=== PATIENT | male | born 1955 | race Caucasian/White ===

== ENCOUNTER 2017-11-12 21:35 | Day surgery (SDC) | payer MEDICARE, OTHER ==
[~2017-11-12] VITALS: Ht 188 cm; Wt 105.3 kg
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
--- OUTSIDE RECORDS SUMMARY | 2017-11-12 21:43 | XMS REPORT ---
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 Name Role Phone HAYLEY ARIAS Unavailable PROBLEMS Type Condition ICD9-CM Code JYM31-TA Code Onset Dates Condition Status SNOMED Code Problem Obsessive compulsive disorder F42 Active 575402036 Problem Panic disorder F41.0 Active 286959049 Problem BPH (benign prostatic hyperplasia) N40.0 Active 882018597 Problem Chronic hepatitis C without hepatic coma B18.2 Active 506975882 Problem Back pain at L4-L5 level M54.5 Active 907130090 Problem Constipation, unspecified constipation type K59.00 Active 37765865 Problem Chronic pain G89.29 Active 36199518 Problem Degenerative disc disease at L5-S1 level M51.36 Active 01856741 Problem Benign nodular prostatic hyperplasia, presence of lower urinary tract symptoms unspecified N40.0 Active 668995072 Problem Other obsessive-compulsive disorder F42.8 Active 356800888 Problem HTN (hypertension) I10 Active 50511545 Problem Depression F32.9 Active 03044593 Problem Apnea R06.81 Active 0185709 Problem Anxiety F41.9 Active 19205290 Problem ED (erectile dysfunction) N52.9 Active 359188371 Problem Chronic viral hepatitis C B18.2 Active 697685588 ALLERGIES No Information ENCOUNTERS Encounter Location Date Diagnosis [facility] [address] [id number] [address] Oct, [facility] [id number] [place] [address] 78505- 2574 Aug, Degenerative disc disease at L5-S1 level M51.36 [facility] [id number] [place] [address] 30060- 7668 Aug, [facility] [id number] [place] [address] 67075- 6861 Jul, HTN (hypertension) I10 ; Depression F32.9 ; Degenerative disc disease at L5-S1 level M51.36 ; Benign nodular prostatic hyperplasia, presence of lower urinary tract symptoms unspecified N40.0 ; High risk medication use Z79.899 ; Controlled substance agreement signed Z79.899 ; Anxiety F41.9 ; Chronic hepatitis C without hepatic coma B18.2 and Injury of left knee, initial encounter S89.92XA [facility] [address] [address]- [address] Jul, [place] [address] [address]- [address] June, Degenerative disc disease at L5-S1 level M51.36 [place] [id number] [place] [address] 32833- 1884 Mar, [place] [address] [address]66- 0890 Mar, Controlled substance agreement signed Z79.899 and Degenerative disc disease at L5-S1 level M51.36 [place] [address] 90164- 3568 Mar, Controlled substance agreement signed Z79.899 [place] [id number] [place] [address] 96591- 8613 Feb, [facility] [id number] [place] [address] 23216- 8085 Feb, Degenerative disc disease at L5-S1 level M51.36 [facility] [id number] [place] [address] 15511- 9712 Jan, HTN (hypertension) I10 ; Chronic pain G89.29 and Back pain at L4-L5 level M54.5 [place] [id number] [place] [address] 26269- 0844 Dec, Degenerative disc disease at L5-S1 level M51.36 [place] [address] [place] [address]- 5711 Dec, Degenerative disc disease at L5-S1 level M51.36 and Depression F32.9 [place] [address] 71970- 6858 Oct, [place] [address] 27511- 6638 Sep, Chronic viral hepatitis C B18.2 ; BPH (benign prostatic hyperplasia) N40.0 ; HTN (hypertension) I10 ; Panic disorder F41.0 ; Obsessive compulsive disorder F42 ; Constipation, unspecified constipation type K59.00 and Degenerative disc disease at L5-S1 level M51.36 [place] [address] 04292- 9180 Aug, Chronic pain G89.29 [place] [address] 17478- 2506 Aug, [place] [address] 74882- 2806 May, Chronic pain G89.29 and Anxiety F41.[address] [address]- 2069 Apr, Chronic pain G89.29 and Anxiety F41.9 [place] [address] 74381- 5391 Apr, Chronic pain G89.29 [place] [address] 35513- 9794 Mar, Anxiety F41.9 and Chronic pain G89.29 [place] [address] 61099- 6283 Feb, [place] [address] 30717- 5768 Feb, Depression F32.9 [place] [address] 92394- 1129 Feb, [place] [id number] [place] [address] 76181- 1132 Feb, Chronic viral hepatitis C B18.2 ; ED (erectile dysfunction) N52.9 ; HTN (hypertension) I10 ; Depression F32.9 ; Constipation, unspecified constipation type K59.00 ; Chronic pain G89.29 ; Benign nodular prostatic hyperplasia, presence of lower urinary tract symptoms unspecified N40.0 ; Anxiety F41.9 and Screening cholesterol level Z13.220 [place] [address] 82172- 6983 Feb, [place] [address] 93357- 1810 Feb, Chronic pain G89.29 [place] [address] 38666- 5290 Feb, Anxiety F41.9 ; Chronic pain G89.29 ; Obsessive compulsive disorder F42 and HTN (hypertension) I10 [place] [address] 28642- 4659 Dec, [place] [address] 86977- 6028 Dec, [place] [address] 89401- 6291 Dec, Anxiety F41.9 [place] [address] 27318- 8040 Nov, Chronic viral hepatitis C B18.2 ; Anxiety F41.9 ; HTN ( hypertension) I10 ; Panic disorder F41.0 ; BPH (benign prostatic hyperplasia) N40.0 ; ED (erectile dysfunction) N52.9 ; Obsessive compulsive disorder F42 ; Constipation, unspecified constipation type K59.00 and Chronic pain G89.29 [place] [address] 93593- 2762 Nov, [place] [address] [place] [address]- 8416 05 Nov, 2015 [facility] [id number] [place] [address] 61297- 8039 30 Oct, 2015 [facility] [address] 93501- 0665 Aug, [facility] [address] 58510- 9016 Jul, Chronic viral hepatitis C B18.2 ; BPH (benign prostatic hyperplasia) N40.0 ; ED (erectile dysfunction) N52.9 ; HTN (hypertension) I10 ; Panic disorder F41.0 ; Depression F32.9 ; Obsessive compulsive disorder F42 ; Apnea R06.81 ; Other chronic pain G89.29 and Dorsalgia, unspecified M54.9 [facility] [id number] [place] [address] 64480- 6200 Jul, Chronic pain G89.29 and Anxiety F41.9 [facility] [address] 58520- 2872 June, Chronic pain G89.29 [facility] [address] 78874- 9446 June, Panic disorder F41.0 and Chronic pain G89.29 [facility] [id number] [place] [address] 00300- 6252 14 May, 2015 [facility] [id number] [place] [address] 64385- 8311 14 May, 2015 [facility] [id number] [place] [address] 12899- 4093 12 May, 2015 [facility] [address] 13413 -2262 23 Apr, 2015 Sinusitis J32.9 [facility] [id number] [place] [address] 44923- 3994 18 Apr, 2015 [facility] [address] [place] [address]- 1695 Apr, [facility] [id number] [place] [address] 81028- 4744 Mar, [facility] [address] 91756- 1608 Mar, Depression F32.9 ; Panic disorder F41.0 and Obsessive compulsive disorder F42 [place] [address] 82689- 8783 Mar, [place] [address] 42674- 6056 Feb, [place] [address] 07996- 2977 Feb, Anxiety F41.9 ; ED (erectile dysfunction) N52.9 ; HTN ( hypertension) I10 ; Panic disorder F41.0 ; Depression F32.9 ; Obsessive compulsive disorder F42 ; BPH (benign prostatic hyperplasia) N40.0 ; Degenerative joint disease of low back M47.9 and Vitamin D deficiency E55.9 [place] [id number] [place] [address] 11377- 1181 Feb, [place] [id number] [place] [address] 96143- 1782 Dec, [place] [id number] [place] [address] 12380- 6980 Dec, [place] [id number] [place] [address] 38960- 4483 Dec, [place] [id number] [place] [address] 09963- 0291 Nov, Chronic viral hepatitis C B18.2 ; Anxiety F41.9 ; BPH ( benign prostatic hyperplasia) N40.0 ; ED (erectile dysfunction) N52.9 ; HTN ( hypertension) I10 ; Panic disorder F41.0 ; Depression F32.9 ; Obsessive compulsive disorder F42 ; Apnea R06.81 ; Chronic pain G89.29 and Vitamin D deficiency E55.9 [facility] [address], [place] [address]- 1541 Nov, [facility] [address] 0236 Nov, [facility] [address] [address]- 4195 Nov, [facility] [id number] [place] [address] 551562- 2245 Nov, [facility] [address] [address]- 6916 Oct, [facility] [address] [address]- 6486 Oct, [facility] [address] [address]- 4754 Oct, [facility] [address], [place] [address]- 4621 Sep, [facility] [address], [place] [address]- 8516 Sep, [facility] [address] [address]- 4650 Sep, [facility] [address], [place] [address]- 4845 Sep, [facility] [address], [place] [address]- 2464 Aug, Essential hypertension, benign 401.1 ; Obsessive-compulsive disorders 300.3 ; Anxiety state, unspecified 300.00 ; Depressive disorder, not elsewhere classified 311 ; Lumbago 724.2 ; Hepatitis C 070.70 and BPH (benign prostatic hyperplasia) 600.00 [facility] [address] 2143 Aug, [facility] [id number] [address]- 4578 Aug, [facility] [address] [facility] [id number] [address]- 7539 Jul, [facility] [place] [facility] [address] [address]- 0164 June, [facility] [place] [facility] [address] [id number], [place] [address]- 5344 May, Lumbago 724.2 ; Other chronic pain 338.29 and Dizziness 780.4 [facility] [place] [facility] [address] [facility] [id number], [place] [address]- 8352 May, [facility] [place] [facility] [id number] [place] [address] 41760- 4118 May, [facility] [place] [facility] [address] [address]- 3865 Apr, [facility] [place] [facility] [address], [place] [address]- 1202 Apr, [facility] [place] [facility] [id number], [place] [address]- 0839 Apr, [facility] [place] [facility] [address], [place] [address]- 7541 Apr, [facility] [place] [facility] [address] [address]- 5717 Apr, [facility] [place] [facility] [id number], [place] [address]- 3068 Apr, [facility] [place] [facility] [address] [facility] [id number] [address]- 7953 Mar, [facility] [place] [facility] [address] [facility] [id number], [place] [address]- 2421 Mar, [facility] [place] [facility] [id number], [place] [address]- 5375 Mar, [facility] [place] [facility] [address] [place] [address]- 1837 10 Mar, 2014 [facility] [place] [facility] [address] [id number] [place] [address]- 7490 10 Mar, 2014 [facility] [place] [facility] [address] [id number] [place] [address]- 7903 10 Mar, 2014 [facility] [place] [facility] [address] [id number] [place] [address]- 8751 10 Mar, 2014 [facility] [place] [facility] [address] [id number] [place] [address]- 9660 10 Mar, 2014 [facility] [place] [facility] [address] [facility] [id number] [place] [address]- 3269 Feb, [facility] [place] [facility] [address] [facility] [id number] [place] [address]- 1670 Feb, [facility] [place] [facility] [address] [facility] [id number] [place] [address]- 3660 Jan, [facility] [place] [facility] [address] [id number] [place] [address]- 2070 Jan, [facility] [place] [facility] [address] [facility] [id number] [place] [address]- 6974 02 Jan, 2014 [facility] [place] [facility] [address] [facility] [id number] [place] [address]- 2500 02 Jan, 2014 [facility] [place] [facility] [address] [facility] [id number] [place] [address]- 5859 Nov, [facility] [place] [facility] [address] [id number] [place] [address]- 8409 31 Nov, 2013 [facility] [place] [facility] [address] [facility] [id number] [place] 3278 16 Nov, 2013 [facility] [place] [facility] [address] [facility] [id number] [place] 3320 16 Nov, 2013 [facility] [place] [facility] [address] [facility] [id number] [place] [address]- 3259 14 Nov, 2013 [facility] [place] [facility] [address] [id number] [place] [address]- 4538 14 Nov, 2013 [facility] [place] [facility] [address] [id number] [place] [address]- 6285 Nov, [facility] [place] [facility] [address] [id number] [place] [address]- 1331 Nov, [facility] [place] [facility] [address] [id number] [place] [address]- 8284 Nov, [facility] [place] [facility] [address] [id number] [place] [address]- 9273 Nov, [facility] [place] [facility] [address] [id number] [place] [address]- 2303 Nov, [facility] [place] [facility] [address] [id number] [place] [address]- 1836 Nov, [facility] [place] [facility] [address] [id number] [place] [address]- 4434 12 Oct, 2013 [facility] [place] [facility] [address] [id number] [place] [address]- 2566 12 Oct, 2013 [facility] [place] [facility] [address] [id number] [place] [address]- 5261 12 Oct, 2013 [facility] [place] [facility] [address] [id number], [place] [address]- 2879 12 Oct, 2013 [facility] [place] [facility] [address] [id number], [place] [address]- 5080 11 Oct, 2013 [facility] [place] [facility] [address] [id number] [place] [address]- 0972 11 Oct, 2013 [facility] [place] [facility] [address] [id number] [place] [address]- 4774 10 Oct, 2013 [facility] [place] [facility] [address] [id number], [place] [address]- 6035 10 Oct, 2013 [facility] [place] [facility] [address] [id number], [place] [address]- 3942 10 Oct, 2013 [facility] [place] [facility] [address] [id number] [place] [address]- 5485 10 Oct, 2013 [facility] [place] [facility] [address] [id number] [place] [address]- 2664 03 Oct, 2013 [facility] [place] [facility] [address] [id number] [place] [address]- 0567 03 Oct, 2013 [facility] [place] [facility] [address] [id number] [place] [address]- 4414 02 Oct, 2013 [facility] [place] [facility] [address] [id number] [place] [address]- 2546 Oct, 2013 [facility] [place] [facility] [address] [id number] [place] [address]- 4488 Oct, 2013 [facility] [place] [facility] [address] [id number] [place] [address]- 2695 Oct, 2013 [facility] [place] [facility] [address] [id number] [place] [address]- 2347 Oct, 2013 [facility] [place] [facility] [address] [id number] [place] [address]- 0347 Oct, 2013 [facility] [place] [facility] [address] [id number] [place] [address]- 6432 Sep, [facility] [place] [facility] [address] [id number] [place] [address]- 8109 Sep, [facility] [place] [facility] [address] [id number], [place] [address]- 5696 Sep, [facility] [place] [facility] [address] [id number] [place] [address]- 4831 Sep, [facility] [place] [facility] [address] [id number] [place] [address]- 7391 Sep, [facility] [place] [facility] [address] [id number] [place] [address]- 8831 Sep, [facility] [place] [facility] [address] [id number] [place] [address]- 1255 Sep, [facility] [place] [facility] [address] [id number] [place] 8169 Sep, [facility] [place] [facility] [address] [id number] [place] [address]- 6062 Sep, [facility] [place] [facility] [address] [id number] [place] [address]- 5945 Sep, [facility] [place] [facility] [address] [id number] [place] [address]- 6601 Aug, [facility] [place] [facility] [address] [id number] [place] [address]- 8480 Aug, [facility] [place] [facility] [address] [id number] [place] [address]- 2657 Aug, [facility] [place] [facility] [address] [id number] [place] [address]- 3060 Aug, [facility] [place] [facility] [address] [id number] [facility] [place] [address]- 4813 Aug, [facility] [place] [facility] [address] [id number] [place] [address]- 4094 Aug, [facility] [place] [facility] [address] [id number] [place] [address]- 6503 Aug, [facility] [place] [facility] [address] [id number] [facility] [place] [address]- 8239 Aug, [facility] [place] [facility] [address] [id number] [place] [address]- 3126 Aug, [facility] [place] [facility] [address] [id number] [place] [address]- 8962 Aug, [facility] [place] [facility] [address] [id number] [place] [address]- 7819 Aug, [facility] [place] [facility] [address] [id number] [place] [address]- 4578 Aug, [facility] [place] [facility] [address] [id number] [place] [address]- 0445 Aug, [facility] [place] [facility] [address] [id number] [place] [address]- 8917 Jul, [facility] [place] [facility] [address] [id number] [place] [address]- 4929 Jul, [facility] [place] [facility] [address] [id number] [place] [address]- 4654 Jul, [facility] [place] [facility] [address] [id number] [place] [address]- 5181 Jul, [facility] [place] [facility] [address] [id number] [place] [address]- 1369 Jul, [facility] [place] [facility] [address] [id number] [place] [address]- 4309 Jul, [facility] [place] [facility] [address] [id number] [place] [address]- 3240 Jul, [facility] [place] [facility] [address] [id number] [place] [address]- 1731 Jul, [facility] [place] [facility] [address] [id number] [place] [address]- 8348 Jul, [facility] [place] [facility] [address] [id number], [place] [address]- 9510 Jul, [facility] [place] [facility] [address] [id number], [place] [address]- 1133 Jul, [facility] [place] [facility] [address] [id number] [place] [address]- 2900 June, [facility] [place] [facility] [address] [id number] [place] [address]- 2916 June, [facility] [place] [facility] [address] [id number] [place] [address]- 9350 June, [facility] [place] [facility] [address] [id number] [place] [address]- 8262 June, [facility] [place] [facility] [address] [id number] [place] [address]- 8863 June, [facility] [place] [facility] [address] [id number] [place] 4946 May, [facility] [place] [facility] [address] [id number] [place] [address]- 1516 May, [facility] [place] [facility] [address] [id number] [place] [address]- 0688 May, [facility] [place] [facility] [address] [id number] [place] [address]- 3423 May, [facility] [place] [facility] [address] [id number] [place] [address]- 4644 Apr, [facility] [place] [facility] [address] [id number] [place] [address]- 3849 Apr, [facility] [place] [facility] [address] [id number] [place] [address]- 9815 Apr, [facility] [place] [facility] [address] [id number] [place] [address]- 2097 Apr, [facility] [place] [facility] [address] [facility] [id number] [place] [address] Apr, [facility] [place] [facility] [address] [id number] [place] [address] Apr, [facility] [place] [facility] [address] [id number] [place] [address] Apr, [facility] [place] [facility] [address] [id number] [place] [address] Apr, [facility] [place] [facility] [address] [id number] [place] [address] Mar, [facility] [place] [facility] [address] [id number] [place] [address] Mar, [facility] [place] [facility] [address] [id number] [place] [address] Mar, [facility] [place] [facility] [address] [id number] [place] [address] Mar, [facility] [place] [facility] [address] [id number] [place] [address] Feb, [facility] [place] [facility] [address] [id number] [place] [address] Feb, [facility] [place] [facility] [address] [id number] [place] [address] Feb, [facility] [place] [facility] [address] [id number] [place] [address] Feb, [facility] [place] [facility] [address] [id number] [place] [address] Jan, [facility] [place] [facility] [address] [id number] [place] [address] Jan, [facility] [place] [facility] [address] [id number] [place] [address] Jan, [facility] [place] [facility] [address] [id number] [address] Jan, [facility] [place] [facility] [address] [id number] [address] Jan, [facility] [place] [facility] [address] [id number] [address] Dec, [facility] [place] [facility] [address] [id number] [place] [address] Dec, [facility] [place] [facility] [address] [id number][place] [address] Dec, [facility] [place] [facility] [address] [id number] [address] Dec, [facility] [place] [facility] [address] [id number], [place] [address] Dec, [facility] [place] [facility] [address] [id number] [place] [address] Dec, [facility] [place] [facility] [address] [id number] [place] [address] Dec, [facility] [place] [facility] [address] [facility] [id number] [place] [address] Dec, [facility] [place] [facility] [address] [id number] [place] [address] Nov, [facility] [place] [facility] [address] [id number] [place] [address] Nov, [facility] [place] [facility] [address] [id number] [place] [address] Nov, [facility] [place] [facility] [address] [facility] [id number], [place] [address] Nov, [facility] [place] [facility] [address] [id number] [place] [address] Nov, [facility] [place] [facility] [address] [facility] [id number] [place] [address] Nov, [facility] [place] [facility] [address] [facility] [id number] [place] [address] 30 Oct, 2012 [facility] [place] [facility] [address] [id number] [place] [address] 20 Oct, 2012 [facility] [place] [facility] [address] [id number], [place] [address] 12 Oct, 2012 [facility] [place] [facility] [address] [id number] [place] [address] 05 Oct, 2012 [facility] [place] [facility] [address] [facility] [id number] [place] [address] 14 Sep, 2012 [facility] [place] [facility] [address] [facility] [id number] [place] [address] Sep, [facility] [place] [facility] [id number], [place] [address] Sep, [facility] [id number], [place] [address] Aug, [facility] [id number], [place] [address] Aug, [facility] [id number], [place] [address] Jul, [facility] [id number], [place] [address] Jul, [facility] [id number], [place] [address] June, [facility] [id number], [place] [address] June, [facility] [id number], [place] [address] June, [facility] [address] [id number] [address] May, [facility] [id number] [place] [address] Mar, [facility] [id number] [address] Mar, [facility] [id number] [address] Mar, [facility] [id number], [place] [address] Mar, IMMUNIZATIONS No Known Immunizations SOCIAL HISTORY Never Assessed REASON FOR VISIT Controlled Med Refill PLAN OF CARE VITAL SIGNS MEDICATIONS Unknown Medications RESULTS No Results PROCEDURES No Known procedures [...]
--- OUTSIDE RECORDS SUMMARY | 2017-11-12 21:43 | XMS REPORT ---
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 Name Role Phone HAYLEY ARIAS Unavailable PROBLEMS Type Condition ICD9-CM Code YPS20-MM Code Onset Dates Condition Status SNOMED Code Problem Obsessive compulsive disorder F42 Active 288771786 Problem Panic disorder F41.0 Active 579296715 Problem BPH (benign prostatic hyperplasia) N40.0 Active 700171654 Problem Chronic hepatitis C without hepatic coma B18.2 Active 309890382 Problem Back pain at L4-L5 level M54.5 Active 788452569 Problem Constipation, unspecified constipation type K59.00 Active 37631219 Problem Chronic pain G89.29 Active 45087792 Problem Degenerative disc disease at L5-S1 level M51.36 Active 81758929 Problem Benign nodular prostatic hyperplasia, presence of lower urinary tract symptoms unspecified N40.0 Active 735879423 Problem Other obsessive-compulsive disorder F42.8 Active 902950900 Problem HTN (hypertension) I10 Active 63728686 Problem Depression F32.9 Active 57548084 Problem Apnea R06.81 Active 5925920 Problem Anxiety F41.9 Active 64526589 Problem ED (erectile dysfunction) N52.9 Active 183741011 Problem Chronic viral hepatitis C B18.2 Active 741847042 ALLERGIES Substance Reaction Event Type Date Status Codeine Sulfate itching Drug Allergy Jul, Active ENCOUNTERS Encounter Location Date Diagnosis [facility] [address] [facility] [id number] [address] Oct, [facility] [address] [id number] [address] Aug, Degenerative disc disease at L5-S1 level M51.36 [facility] [address] [id number] [address] Aug, [place] [id number] [place] [address] 93532- 9157 14 Jul, 2017 HTN (hypertension) I10 ; Depression F32.9 ; Degenerative disc disease at L5-S1 level M51.36 ; Benign nodular prostatic hyperplasia, presence of lower urinary tract symptoms unspecified N40.0 ; High risk medication use Z79.899 ; Controlled substance agreement signed Z79.899 ; Anxiety F41.9 ; Chronic hepatitis C without hepatic coma B18.2 and Injury of left knee, initial encounter S89.92XA [place] [address] [address]- [address] Jul, [place] [address] 02993- 6888 June, Degenerative disc disease at L5-S1 level M51.36 [place] [id number] [place] [address] 35283- 8795 Mar, [place] [address] [address]- 1282 Mar, Controlled substance agreement signed Z79.899 and Degenerative disc disease at L5-S1 level M51.36 [place] [id number] [place] [address] 77559- 5036 Mar, Controlled substance agreement signed Z79.899 [place] [id number] [place] [address] 93291- 0881 Feb, [place] [id number] [place] [address] 92173- 1523 Feb, Degenerative disc disease at L5-S1 level M51.36 [place] [id number] [place] [address] 86604- 4355 Jan, HTN (hypertension) I10 ; Chronic pain G89.29 and Back pain at L4-L5 level M54.5 [place] [id number] [place] [address] 37097- 9619 Dec, Degenerative disc disease at L5-S1 level M51.36 [facility] [id number] [place] [address] 61116- 1932 Dec, Degenerative disc disease at L5-S1 level M51.36 and Depression F32.9 [facility] [id number] [place] [address] 60463- 2131 Oct, [place] [id number] [place] [address] 42140- 8986 Sep, Chronic viral hepatitis C B18.2 ; BPH (benign prostatic hyperplasia) N40.0 ; HTN (hypertension) I10 ; Panic disorder F41.0 ; Obsessive compulsive disorder F42 ; Constipation, unspecified constipation type K59.00 and Degenerative disc disease at L5-S1 level M51.36 [place] [id number] [place] [address] 78414- 1130 Aug, Chronic pain G89.29 [place] [id number] [place] [address] 64758- 8609 Aug, [place] [id number] [place] [address] 98450- 5762 May, Chronic pain G89.29 and Anxiety F41.9 [place] [id number] [place] [address] 24952- 3446 Apr, Chronic pain G89.29 and Anxiety F41.9 [place] [id number] [place] [address] 19027- 3319 Apr, Chronic pain G89.29 [place] [id number] [place] [address] 43255- 3856 Mar, Anxiety F41.9 and Chronic pain G89.29 [place] [id number] [place] [address] 17661- 0660 Feb, [place] [id number] [place] [address] 79500- 7602 Feb, Depression F32.9 [place] [id number] [place] [address] 92801- 4493 Feb, [place] [address] 00843- 5506 Feb, Chronic viral hepatitis C B18.2 ; ED (erectile dysfunction) N52.9 ; HTN (hypertension) I10 ; Depression F32.9 ; Constipation, unspecified constipation type K59.00 ; Chronic pain G89.29 ; Benign nodular prostatic hyperplasia, presence of lower urinary tract symptoms unspecified N40.0 ; Anxiety F41.9 and Screening cholesterol level Z13.220 [place] [address] 93344- 2307 Feb, [place] [address] 91279- 0346 Feb, Chronic pain G89.[address] 60366- 2444 Feb, Anxiety F41.9 ; Chronic pain G89.29 ; Obsessive compulsive disorder F42 and HTN (hypertension) I10 [place] [address] 04694- 6065 Dec, [place] [address] 50313- 2253 Dec, [place] [address] 99048- 1386 Dec, Anxiety F41.9 [place] [address] 31664- 6003 Nov, Chronic viral hepatitis C B18.2 ; Anxiety F41.9 ; HTN ( hypertension) I10 ; Panic disorder F41.0 ; BPH (benign prostatic hyperplasia) N40.0 ; ED (erectile dysfunction) N52.9 ; Obsessive compulsive disorder F42 ; Constipation, unspecified constipation type K59.00 and Chronic pain G89.[address] 62897- 4371 Nov, [facility] [id number] [place] [address] 41361- 9682 Nov, [facility] [address] 62002- 1491 Oct, [facility] [id number] [place] [address] 31216- 9766 Aug, [facility] [address] 46221- 5382 Jul, Chronic viral hepatitis C B18.2 ; BPH (benign prostatic hyperplasia) N40.0 ; ED (erectile dysfunction) N52.9 ; HTN (hypertension) I10 ; Panic disorder F41.0 ; Depression F32.9 ; Obsessive compulsive disorder F42 ; Apnea R06.81 ; Other chronic pain G89.29 and Dorsalgia, unspecified M54.9 [facility] [id number] [place] [address] 03733- 3045 Jul, Chronic pain G89.29 and Anxiety F41.9 [facility] [id number] [place] [address] 34844- 8448 June, Chronic pain G89.29 [place] [id number] [place] [address] 85581- 7438 June, Panic disorder F41.0 and Chronic pain G89.29 [facility] [id number] [place] [address] 30950- 4232 May, [facility] [id number] [place] [address] 43005- 1289 May, [facility] [id number] [place] [address] 50529- 1306 May, [facility] [id number] [place] [address] 55364 -8693 23 Apr, 2015 Sinusitis J32.9 [facility] [id number] [place] [address] 46755- 5599 18 Apr, 2015 [facility] [address] [address]- 5371 Apr, [facility] [id number] [place] [address] 20256- 1999 Mar, [facility] [id number] [place] [address] 58157- 6463 Mar, Depression F32.9 ; Panic disorder F41.0 and Obsessive compulsive disorder F42 [facility] [id number] [place] [address] 36206- 2638 Mar, [facility] [id number] [place] [address] 75587- 8736 Feb, [facility] [id number] [place] [address] 69228- 8485 Feb, Anxiety F41.9 ; ED (erectile dysfunction) N52.9 ; HTN ( hypertension) I10 ; Panic disorder F41.0 ; Depression F32.9 ; Obsessive compulsive disorder F42 ; BPH (benign prostatic hyperplasia) N40.0 ; Degenerative joint disease of low back M47.9 and Vitamin D deficiency E55.9 [place] [id number] [place] [address] 00978- 9511 Feb, [facility] [id number] [place] [address] 71240- 0809 Dec, [facility] [address] [address]- 2962 Dec, [facility] [id number] [place] [address] 02421- 7420 Dec, [facility] [id number] [place] [address] 81308- 5881 Nov, Chronic viral hepatitis C B18.2 ; Anxiety F41.9 ; BPH ( benign prostatic hyperplasia) N40.0 ; ED (erectile dysfunction) N52.9 ; HTN ( hypertension) I10 ; Panic disorder F41.0 ; Depression F32.9 ; Obsessive compulsive disorder F42 ; Apnea R06.81 ; Chronic pain G89.29 and Vitamin D deficiency E55.9 [facility] [address] [id number] [address]- 2565 Nov, [facility] [address] [id number] [address]- 0801 Nov, [facility] [id number] [place] [address] 88211- 3344 Nov, [facility] [id number] [place] [address] 60988- 3552 Nov, [facility] [id number] [place] [address] 28455- 9380 Oct, [facility] [id number] [place] [address] 88667- 5282 Oct, [facility] [id number] [place] [address] 68448- 5707 Oct, [facility] [id number] [place] [address] 61592- 4598 Sep, [facility] [id number] [place] [address] 74687- 7564 Sep, [facility] [address] [address]- 8451 Sep, [facility] [address] [id number] [address]- 1727 Sep, [facility] [address] [address]- 2593 Aug, Essential hypertension, benign 401.1 ; Obsessive-compulsive disorders 300.3 ; Anxiety state, unspecified 300.00 ; Depressive disorder, not elsewhere classified 311 ; Lumbago 724.2 ; Hepatitis C 070.70 and BPH (benign prostatic hyperplasia) 600.00 [facility] [id number] [place] [address] 42903- 8789 Aug, [facility] [address] [facility] [id number] [place] [address]- 7035 Aug, [facility] [address] [facility] [id number] [place] [address]- 7069 Jul, [facility] [address] [facility] [id number] [place] [address]- 0269 June, [facility] [id number] [place] [address]- 1690 May, Lumbago 724.2 ; Other chronic pain 338.29 and Dizziness 780.4 [facility] [address] [facility] [id number] [place] [address], [place] [address]- 3364 May, [facility] [id number] [address]- 5691 May, [facility] [address] [place] [address]- 6126 Apr, [facility] [id number] [address]- 2264 Apr, [facility] [address] [place] [address]- 1556 Apr, [facility] [id number] [address]- 1735 Apr, [facility] [address] [address]- 5357 Apr, [facility] [address] [facility] [id number] [place] [address]- 5506 Apr, [facility] [address] [facility] [id number] [place] [address]- 3555 Mar, [facility] [address] [facility] [id number] [place] [address]- 4081 Mar, [facility] [id number] [address]- 0385 Mar, [facility] [place] [facility] [address] [id number] [place] [address]- 9619 10 Mar, 2014 [facility] [place] [facility] [address] [id number] [place] [address]- 2606 Mar, 2014 [facility] [place] [facility] [address] [id number] [place] [address]- 0806 10 Mar, 2014 [facility] [place] [facility] [address] [id number] [place] [address]- 6066 Mar, 2014 [facility] [place] [facility] [address] [id number] [place] [address]- 9883 Mar, 2014 [facility] [place] [facility] [address] [id number] [place] [address]- 4578 Feb, [facility] [place] [facility] [address] [id number] [place] [address]- 2333 Feb, [facility] [place] [facility] [address] [id number] [place] [address]- 2424 Jan, [facility] [place] [facility] [address] [id number] [place] [address]- 7542 Jan, [facility] [place] [facility] [address] [facility] [id number] [place] [address]- 6212 Jan, [facility] [place] [facility] [address] [id number], [place] [address]- 7563 Jan, [facility] [place] [facility] [address] [id number], [place] [address]- 3322 Nov, [facility] [place] [facility] [address] [id number] [place] [address]- 9001 Nov, [facility] [place] [facility] [address] [id number] [place] [address]- 7580 Nov, [facility] [place] [facility] [address] [id number] [place] [address]- 7205 Nov, [facility] [place] [facility] [address] [id number] [place] [address]- 7460 14 Nov, 2013 [facility] [place] [facility] [address] [id number] [place] [address]- 0197 14 Nov, 2013 [facility] [place] [facility] [address] [id number] [place] [address]- 8645 Nov, [facility] [place] [facility] [address] [id number] [place] [address]- 3765 Nov, [facility] [place] [facility] [address] [id number] [place] [address]- 2802 Nov, [facility] [place] [facility] [address] [id number] [place] [address]- 4720 Nov, [facility] [place] [facility] [address] [id number] [place] [address]- 5519 Nov, [facility] [place] [facility] [address] [id number] [place] [address]- 3536 Nov, [facility] [place] [facility] [address] [id number] [place] [address]- 9392 12 Oct, 2013 [facility] [place] [facility] [address] [id number] [place] [address]- 0944 12 Oct, 2013 [facility] [place] [facility] [address] [id number] [place] [address]- 6426 12 Oct, 2013 [facility] [place] [facility] [address] [id number] [place] [address]- 1142 12 Oct, 2013 [facility] [place] [facility] [address] [id number] [place] [address]- 2545 11 Oct, 2013 [facility] [place] [facility] [address] [id number] [place] [address]- 0726 11 Oct, 2013 [facility] [place] [facility] [address] [id number] [place] [address]- 2545 10 Oct, 2013 [facility] [place] [facility] [address] [id number] [place] [address]- 8659 10 Oct, 2013 [facility] [place] [facility] [address] [id number] [place] [address]- 7836 10 Oct, 2013 [facility] [place] [facility] [address] [id number] [place] [address]- 5252 10 Oct, 2013 [facility] [place] [facility] [address] [id number] [place] [address]- 8080 03 Oct, 2013 [facility] [place] [facility] [address] [id number] [place] [address]- 5224 03 Oct, 2013 [facility] [place] [facility] [address] [id number] [place] [address]- 6329 02 Oct, 2013 [facility] [place] [facility] [address] [id number] [place] [address]- 8179 02 Oct, 2013 [facility] [place] [facility] [address] [id number] [place] [address]- 8981 Oct, 2013 [facility] [place] [facility] [address] [id number] [place] [address]- 4718 Oct, 2013 [facility] [place] [facility] [address] [id number] [place] [address]- 0570 Oct, 2013 [facility] [place] [facility] [address] [id number] [place] [address]- 5086 Oct, 2013 [facility] [place] [facility] [address] [id number] [place] [address]- 8305 Sep, [facility] [place] [facility] [address] [id number] [place] [address]- 4471 Sep, [facility] [place] [facility] [address] [id number] [place] [address]- 6078 Sep, [facility] [place] [facility] [address] [id number] [place] [address]- 1668 Sep, [facility] [place] [facility] [address] [id number] [place] [address]- 1952 Sep, [facility] [place] [facility] [address] [id number] [place] [address]- 2397 Sep, [facility] [place] [facility] [address] [id number] [place] [address]- 9954 Sep, [facility] [place] [facility] [address] [id number] [place] [address]- 7834 Sep, [facility] [place] [facility] [address] [id number] [place] [address]- 5785 Sep, [facility] [place] [facility] [address] [id number] [place] [address]- 6552 Sep, [facility] [place] [facility] [address] [id number] [place] [address]- 2299 Aug, [facility] [place] [facility] [address] [id number] [place] [address]- 0961 Aug, [facility] [place] [facility] [address] [id number] [place] [address]- 4674 Aug, [facility] [place] [facility] [address] [id number] [place] [address]- 8798 Aug, [facility] [place] [facility] [address] [id number] [place] [address]- 4220 Aug, [facility] [place] [facility] [address] [id number] [place] [address]- 3181 Aug, [facility] [place] [facility] [address] [id number] [place] [address]- 2052 Aug, [facility] [place] [facility] [address] [id number] [place] [address]- 2743 Aug, [facility] [place] [facility] [address] [id number] [place] [address]- 3028 Aug, [facility] [place] [facility] [address] [id number] [place] [address]- 5004 Aug, [facility] [place] [facility] [address] [id number] [place] [address]- 6569 Aug, [facility] [place] [facility] [address] [id number] [place] [address]- 5928 Aug, [facility] [place] [facility] [address] [id number] [place] [address]- 6782 Aug, [facility] [place] [facility] [address] [id number] [place] [address]- 5553 Jul, [facility] [place] [facility] [address] [id number] [place] [address]- 2766 Jul, [facility] [place] [facility] [address] [id number] [place] [address]- 0617 Jul, [facility] [place] [facility] [address] [id number] [place] [address]- 1399 Jul, [facility] [place] [facility] [address] [id number] [place] [address]- 1001 Jul, [facility] [place] [facility] [address] [id number] [place] [address]- 6232 Jul, [facility] [place] [facility] [address] [id number] [place] [address]- 6841 Jul, [facility] [place] [facility] [address] [id number] [place] [address]- 4741 Jul, [facility] [place] [facility] [address] [id number] [place] [address]- 0601 Jul, [facility] [place] [facility] [address] [id number] [place] [address]- 0955 Jul, [facility] [place] [facility] [address] [id number] [place] [address]- 2208 Jul, [facility] [place] [facility] [address] [id number] [place] [address]- 8326 June, [facility] [place] [facility] [address] [id number] [place] [address]- 3225 June, [facility] [place] [facility] [address] [id number] [place] [address]- 4727 June, [facility] [place] [facility] [address] [id number] [place] [address]- 1295 June, [facility] [place] [facility] [address] [id number] [place] [address]- 9227 June, [facility] [place] [facility] [address] [id number] [place] [address] May, [facility] [place] [facility] [address] [id number] [place] [address] May, [facility] [place] [facility] [address] [id number] [place] [address] May, [facility] [place] [facility] [address] [id number] [place] [address] May, [facility] [place] [facility] [address] [id number] [place] [address] Apr, [facility] [place] [facility] [address] [id number] [place] [address] Apr, [facility] [place] [facility] [address] [id number] [place] [address] Apr, [facility] [place] [facility] [address] [id number] [place] [address] Apr, [facility] [place] [facility] [address] [id number] [place] [address] Apr, [facility] [place] [facility] [address] [id number] [place] [address] Apr, [facility] [place] [facility] [address] [id number] [place] [address] Apr, [facility] [place] [facility] [address] [id number] [place] [address] Apr, [facility] [place] [facility] [address] [id number] [place] [address] Mar, [facility] [place] [facility] [address] [id number] [place] [address] 10 Mar, 2013 [facility] [place] [facility] [address] [id number] [place] [address] Mar, [facility] [place] [facility] [address] [id number] [id number] [address] Mar, [facility] [place] [facility] [address] [id number] [place] [address] Feb, [facility] [place] [facility] [address] [id number] [place] [address] Feb, [facility] [place] [facility] [address] [id number] [id number] [address] Feb, [facility] [place] [facility] [address] [id number] [place] [address] Feb, [facility] [place] [facility] [address] [id number] [place] [address] Jan, [facility] [place] [facility] [address] [id number] [place] [address] Jan, [facility] [place] [facility] [address] [id number] [place] [address] Jan, [facility] [place] [facility] [address] [id number] [place] [address] Jan, [facility] [place] [facility] [address] [id number] [place] [address] Jan, [facility] [place] [facility] [address] [id number] [place] [address] Dec, [facility] [place] [facility] [address] [id number] [place] [address] Dec, [facility] [place] [facility] [address] [id number] [place] [address] Dec, [facility] [place] [facility] [address] [id number] [place] [address] Dec, [facility] [place] [facility] [address] [id number] [place] [address] Dec, [facility] [place] [facility] [address] [id number] [place] [address] Dec, [facility] [place] [facility] [address] [id number] [place] [address] Dec, [facility] [place] [facility] [address] [id number] [place] [address] Dec, [facility] [place] [facility] [address] [id number] [place] [address] Nov, [facility] [place] [facility] [address] [id number] [place] [address] Nov, [facility] [place] [facility] [address] [id number] [place] [address] Nov, [facility] [place] [facility] [address] [id number] [place] [address] Nov, [facility] [place] [facility] [address] [id number] [place] [address] Nov, [facility] [place] [facility] [address] [id number] [place] [address] Nov, [facility] [place] [facility] [address] [id number] [place] [address] 30 Oct, 2012 [facility] [place] [facility] [address] [id number] [place] [address] 20 Oct, 2012 [facility] [place] [facility] [address] [id number] [place] [address] 12 Oct, 2012 [facility] [place] [facility] [address] [id number] [place] [address] 05 Oct, 2012 [facility] [place] [facility] [address] [id number] [place] [address] 14 Sep, 2012 [facility] [place] [facility] [address] [id number], [place] [address] Sep, [facility] [address] [id number], [place] [address] Sep, [facility] [facility] [address] [id number] [address] Aug, [facility] [id number], [place] [address] Aug, [facility] [address] [id number] [address] Jul, [facility] [address] [id number] [address] Jul, [facility] [address] [id number], [place] [address] June, [facility] [id number], [place] [address] June, [facility] [id number], [place] [address] June, [facility] [address] [id number] [address] May, [facility] [id number], [place] [address] Mar, [facility] [address] [id number] [address] Mar, [facility] [address] [id number] [address] Mar, [facility] [address] [id number] [address] Mar, IMMUNIZATIONS No Known Immunizations SOCIAL HISTORY Never Assessed REASON FOR VISIT Pain management, was unable to bare weight to left side for about three weeks, pt states that it is getting better. SANJEEV Sanchez PLAN OF CARE Activity Details Follow Up 3 Months, prn Reason:chm/pain VITAL SIGNS Height 76 in 2017-07-19 Weight 222.7 lbs 2017-07-19 Temperature 98.8 degrees Fahrenheit 2017-07-19 Heart Rate 65 bpm 2017-07-19 Respiratory Rate 20 2017-07-19 BMI 27.10 kg/m2 2017-07-19 Blood pressure systolic 108 mmHg 2017-07-19 Blood pressure diastolic 60 mmHg 2017-07-19 MEDICATIONS Medication Instructions Dosage Frequency Start Date End Date Duration Status Male Support - Active Colace 100 MG Orally Once a day 1 capsule as needed 24h Active Gabapentin 800 MG Orally 3 times a day TAKE ONE (1) TABLET BY MOUTH THREE (3 ) TIMES DAILY 8h 30 Active Hydrocodone-Acetaminophen 10-325 MG Orally 3 times a day 1 tablet as needed 8h Jul, Aug, 28 days Active Rosebud Oil - Orally Once a day 2000mg Capsule 24h Active Iodine - Active Calcium Oral Once a day 1 tablet 24h Active Sertraline HCl 50 MG Orally Once a day 1 tablet 24h Jul, 30 day (s) Active Melatonin 5 MG Orally at bedtime 1 tablet as needed Active Potassium 99 MG Orally Once a day 1 tablet 24h Active Lutein 6 MG Active BusPIRone HCl 7.5 MG Orally Twice a day PRN 1 tablet Jul, 30 days Active Joint Support Active Magnesium 125 MG Active Vitamin B Complex - Active RESULTS No Results PROCEDURES Procedure Date Ordered Result Body Site LAB NOT BILLED BY [facility] July 19, 2017 X-RAY EXAM OF KNEE, 3 July 19, 2017 VENIPUNCT, ROUTINE* July 19, 2017 INSTRUCTIONS MEDICATIONS ADMINISTERED No Known Medications MEDICAL [...]
--- OUTSIDE RECORDS SUMMARY | 2017-11-12 21:44 | XMS REPORT ---
Author Author ARIASHAYLEY Dejesus Organization [facility] Address [address] [place] [address] Care Team Providers Care Receptionist Telephone Operator Name Role Phone HAYLEY ARIAS Unavailable PROBLEMS Type Condition ICD9-CM Code EDI95-QC Code Onset Dates Condition Status SNOMED Code Problem Obsessive compulsive disorder F42 Active [id number] Problem Panic disorder F41.0 Active 252749177 Problem BPH (benign prostatic hyperplasia) N40.0 Active 308818719 Problem Chronic hepatitis C without hepatic coma B18.2 Active 438975660 Problem Back pain at L4-L5 level M54.5 Active 047121768 Problem Constipation, unspecified constipation type K59.00 Active 17883769 Problem Chronic pain G89.29 Active 19157271 Problem Degenerative disc disease at L5-S1 level M51.36 Active 09277528 Problem Benign nodular prostatic hyperplasia, presence of lower urinary tract symptoms unspecified N40.0 Active 141068214 Problem Other obsessive-compulsive disorder F42.8 Active 641747251 Problem HTN (hypertension) I10 Active 33435244 Problem Depression F32.9 Active 73469765 Problem Apnea R06.81 Active 9839213 Problem Anxiety F41.9 Active 19355321 Problem ED (erectile dysfunction) N52.9 Active 840315193 Problem Chronic viral hepatitis C B18.2 Active 311882605 ALLERGIES No Information ENCOUNTERS Encounter Location Date Diagnosis [facility] [address] [facility] [id number] [address] Aug, [facility] [address] [place] [id number] [place] [address] 01550- 8236 Jul, HTN (hypertension) I10 ; Depression F32.9 ; Degenerative disc disease at L5-S1 level M51.36 ; Benign nodular prostatic hyperplasia, presence of lower urinary tract symptoms unspecified N40.0 ; High risk medication use Z79.899 ; Controlled substance agreement signed Z79.899 ; Anxiety F41.9 ; Chronic hepatitis C without hepatic coma B18.2 and Injury of left knee, initial encounter S89.92XA [place] [address] [address] Jul, [facility] [address] [address]- 36[address] June, Degenerative disc disease at L5-S1 level M51.36 [place] [address] 80138- 3482 Mar, [place] [address] 08680- 0201 Mar, Controlled substance agreement signed Z79.899 and Degenerative disc disease at L5-S1 level M51.36 [place] [address] 94181- 3287 Mar, Controlled substance agreement signed Z79.899 [place] [address] 48246- 4267 Feb, [place] [address] 16483- 4253 Feb, Degenerative disc disease at L5-S1 level M51.36 [place] [address] 75743- 7119 Jan, HTN (hypertension) I10 ; Chronic pain G89.29 and Back pain at L4-L5 level M54.5 [place] [address] [place] [id number] [place] [address] 58166- 3598 Dec, Degenerative disc disease at L5-S1 level M51.36 [place] [address] 22841- 2667 Dec, Degenerative disc disease at L5-S1 level M51.36 and Depression F32.9 [place] [address] 16418- 4632 Oct, [place] [address] [place] [id number] [place] [address] 10582- 9537 Sep, Chronic viral hepatitis C B18.2 ; BPH (benign prostatic hyperplasia) N40.0 ; HTN (hypertension) I10 ; Panic disorder F41.0 ; Obsessive compulsive disorder F42 ; Constipation, unspecified constipation type K59.00 and Degenerative disc disease at L5-S1 level M51.36 [place] [address] 13676- 1157 Aug, Chronic pain G89.29 [place] [address] 38681- 9889 Aug, [place] [address] 81577- 3885 May, Chronic pain G89.29 and Anxiety F41.9 [place] [address] [place] [id number] [place] [address] 32969- 9155 Apr, Chronic pain G89.29 and Anxiety F41.9 [place] [address] [place] [id number] [place] [address] 70512- 8216 Apr, Chronic pain G89.29 [place] [address] [place] [id number] [place] [address] 65352- 4459 Mar, Anxiety F41.9 and Chronic pain G89.29 [place] [address] [place] [id number] [place] [address] 91850- 1607 Feb, [place] [address] 53239- 1473 Feb, Depression F32.9 [place] [address] 18549- 2838 Feb, [place] [address] 03637- 2190 Feb, Chronic viral hepatitis C B18.2 ; ED (erectile dysfunction) N52.9 ; HTN (hypertension) I10 ; Depression F32.9 ; Constipation, unspecified constipation type K59.00 ; Chronic pain G89.29 ; Benign nodular prostatic hyperplasia, presence of lower urinary tract symptoms unspecified N40.0 ; Anxiety F41.9 and Screening cholesterol level Z13.220 [place] [address] [place] [id number] [place] [address] 92269- 1964 Feb, [facility] [id number] [place] [address] 35793- 9404 Feb, Chronic pain G89.29 [place] [address] 81724- 5649 Feb, Anxiety F41.9 ; Chronic pain G89.29 ; Obsessive compulsive disorder F42 and HTN (hypertension) I10 [place] [address] [place] [id number] [place] [address] 32183- 0947 Dec, [place] [address] 44758- 4138 Dec, [place] [address] [place] [id number] [place] [address] 96782- 5403 Dec, Anxiety F41.9 [place] [address] 39046- 6612 Nov, Chronic viral hepatitis C B18.2 ; Anxiety F41.9 ; HTN ( hypertension) I10 ; Panic disorder F41.0 ; BPH (benign prostatic hyperplasia) N40.0 ; ED (erectile dysfunction) N52.9 ; Obsessive compulsive disorder F42 ; Constipation, unspecified constipation type K59.00 and Chronic pain G89.29 [place] [address] [place] [id number] [place] [address] 53649- 8415 Nov, [place] [address] 50492- 0992 Nov, [facility] [address] [id number] [place] [address] 58874- 5684 Oct, [place] [address] 66107- 1838 Aug, [facility] [id number] [place] [address] 23951- 7080 Jul, Chronic viral hepatitis C B18.2 ; BPH (benign prostatic hyperplasia) N40.0 ; ED (erectile dysfunction) N52.9 ; HTN (hypertension) I10 ; Panic disorder F41.0 ; Depression F32.9 ; Obsessive compulsive disorder F42 ; Apnea R06.81 ; Other chronic pain G89.29 and Dorsalgia, unspecified M54.9 [facility] [id number] [place] [address] 43974- 1038 Jul, Chronic pain G89.29 and Anxiety F41.9 [place] [address] [place] [id number] [place] [address] 57063- 1881 June, Chronic pain G89.29 [place] [address] [place] [id number] [place] [address] 86108- 0994 June, Panic disorder F41.0 and Chronic pain G89.29 [facility] [address] [id number] [place] [address] 08431- 4402 May, [facility] [address] [id number] [place] [address] 09912- 5699 May, [facility] [address] [place] [id number] [place] [address] 27067- 8156 May, [facility] [id number] [place] [address] 17061 -3552 Apr, Sinusitis J32.9 [facility] [id number] [place] [address] 07820- 9975 18 Apr, 2015 [facility] [address] [place] [id number] [place] [address] 50763- 5808 15 Apr, 2015 [facility] [address] [place] [id number] [place] [address] 93409- 6191 26 Mar, 2015 [facility] [address] [id number] [place] [address] 86980- 3670 Mar, Depression F32.9 ; Panic disorder F41.0 and Obsessive compulsive disorder F42 [place] [address] [address] [id number] [place] [address] 12703- 5089 Mar, [facility] [id number] [place] [address] 53869- 0103 Feb, [place] [address] [address] [id number] [place] [address] 74808- 9243 Feb, Anxiety F41.9 ; ED (erectile dysfunction) N52.9 ; HTN ( hypertension) I10 ; Panic disorder F41.0 ; Depression F32.9 ; Obsessive compulsive disorder F42 ; BPH (benign prostatic hyperplasia) N40.0 ; Degenerative joint disease of low back M47.9 and Vitamin D deficiency E55.9 [place] [address] [address] [id number] [place] [address] 90776- 8663 Feb, [place] [address] [place] [id number] [place] [address] 75038- 1942 Dec, [place] [address] [place] [id number] [place] [address] 86768- 7890 Dec, [place] [address] [id number] [place] [address] 01353- 3414 Dec, [place] [address] [address] [id number] [place] [address] 48471- 1473 Nov, Chronic viral hepatitis C B18.2 ; Anxiety F41.9 ; BPH ( benign prostatic hyperplasia) N40.0 ; ED (erectile dysfunction) N52.9 ; HTN ( hypertension) I10 ; Panic disorder F41.0 ; Depression F32.9 ; Obsessive compulsive disorder F42 ; Apnea R06.81 ; Chronic pain G89.29 and Vitamin D deficiency E55.9 [facility] [id number] [place] [address] 77024- 3148 Nov, [place] [address] [place] [id number] [place] [address] 81507- 5088 Nov, [facility] [address] [address]- 8626 Nov, [facility] [address] [address]- 5178 Nov, [facility] [address] [address]- 3676 Oct, [facility] [id number] [place] [address] 17273- 0535 Oct, [facility] [address], [place] [address]- 9527 Oct, [facility] [id number] [place] [address] 56154- 7687 Sep, [facility] [address] [id number], [place] [address]- 4796 Sep, [facility] [address], [place] [address]- 0363 Sep, [facility] [address], [place] [address]- 5914 Sep, [facility] [address], [place] [address]- 8970 Aug, Essential hypertension, benign 401.1 ; Obsessive-compulsive disorders 300.3 ; Anxiety state, unspecified 300.00 ; Depressive disorder, not elsewhere classified 311 ; Lumbago 724.2 ; Hepatitis C 070.70 and BPH (benign prostatic hyperplasia) 600.00 [facility] [address], [place] [address]- 7332 Aug, [facility] [address] [id number] [address]- 9094 Aug, [facility] [id number] [address]- 6226 Jul, [facility] [id number] [address]- 9182 June, [facility] [address] [facility] [id number] [place] [address]- 6081 30 May, 2014 Lumbago 724.2 ; Other chronic pain 338.29 and Dizziness 780.4 [facility] [address] [facility] [id number] [place] [address]- 2162 14 May, 2014 [facility] [id number] [place] [address]- 7538 May, [facility] [address] [facility] [id number] [place] [address]- 9518 Apr, [facility] [id number] [place] [address], [place] [address]- 1585 Apr, [facility] [id number] [place] [address]- 4158 Apr, [facility] [id number] [place] [address], [place] [address]- 3244 Apr, [facility] [id number] [place] [address]- 9673 Apr, [facility] [id number] [place] [address]- 9095 Apr, [facility] [address], [place] [address]- 0697 Mar, [facility] [id number] [place] [address]- 2154 Mar, [facility] [address] [facility] [id number], [place] [address]- 7037 Mar, [facility] [id number] [place] [address]- 3741 Mar, [facility] [id number] 8776 Mar, [facility] [address], [place] [address]- 1864 Mar, 2014 [facility] [place] [facility] [address] [id number] [place] [address]- 6134 Mar, 2014 [facility] [place] [facility] [address] [id number] [place] [address]- 9752 Mar, [facility] [place] [facility] [address] [id number] [place] [address]- 3306 Feb, [facility] [place] [facility] [address] [id number] [place] [address]- 6819 Feb, [facility] [place] [facility] [address] [id number] [place] [address]- 5989 Jan, [facility] [place] [facility] [address] [id number] [place] [address]- 2257 Jan, [facility] [place] [facility] [address] [id number] [place] [address]- 5335 Jan, [facility] [place] [facility] [address] [id number] [place] [address]- 0495 Jan, [facility] [place] [facility] [address] [id number] [place] [address]- 2836 Nov, [facility] [place] [facility] [address] [id number] [place] [address]- 3480 31 Nov, 2013 [facility] [place] [facility] [address] [id number], [place] [address]- 0476 16 Nov, 2013 [facility] [place] [facility] [address] [id number], [place] [address]- 1700 16 Nov, 2013 [facility] [place] [facility] [address] [id number] [place] [address]- 1979 14 Nov, 2013 [facility] [place] [facility] [address] [id number] [place] [address]- 2086 Nov, [facility] [place] [facility] [address] [id number] [place] [address]- 6914 Nov, [facility] [place] [facility] [address] [id number] [place] [address]- 2939 Nov, [facility] [place] [facility] [address] [id number] [place] [address]- 5270 Nov, [facility] [place] [facility] [address] [id number] [place] [address]- 8547 Nov, [facility] [place] [facility] [address] [id number] [place] [address]- 3101 Nov, [facility] [place] [facility] [address] [id number] [place] [address]- 0384 Nov, [facility] [place] [facility] [address] [id number] [place] [address]- 8905 Oct, [facility] [place] [facility] [address] [id number] [place] [address]- 4850 Oct, 2013 [facility] [place] [facility] [address] [id number] [place] [address]- 0189 Oct, 2013 [facility] [place] [facility] [address] [id number] [place] [address]- 9017 12 Oct, 2013 [facility] [place] [facility] [address] [id number] [place] [address]- 8612 11 Oct, 2013 [facility] [place] [facility] [address] [id number] [place] [address]- 6721 11 Oct, 2013 [facility] [place] [facility] [address] [id number] [place] [address]- 2540 10 Oct, 2013 [facility] [place] [facility] [address] [id number] [place] [address]- 2547 10 Oct, 2013 [facility] [place] [facility] [address] [id number] [place] [address]- 2542 10 Oct, 2013 [facility] [place] [facility] [address] [id number] [place] [address]- 2541 10 Oct, 2013 [facility] [place] [facility] [address] [id number] [place] [address]- 3349 Oct, 2013 [facility] [place] [facility] [address] [id number] [place] [address]- 2265 03 Oct, 2013 [facility] [place] [facility] [address] [id number] [place] [address]- 7504 Oct, 2013 [facility] [place] [facility] [address] [id number] [place] [address]- 1830 Oct, 2013 [facility] [place] [facility] [address] [id number] [place] [address]- 3190 Oct, 2013 [facility] [place] [facility] [address] [id number] [place] [address]- 5406 Oct, 2013 [facility] [place] [facility] [address] [id number] [place] [address]- 9605 Oct, 2013 [facility] [place] [facility] [address] [id number] [place] [address]- 8174 Oct, 2013 [facility] [place] [facility] [address] [id number] [place] [address]- 9286 Sep, [facility] [place] [facility] [address] [id number] [place] [address]- 0480 Sep, [facility] [place] [facility] [address] [id number] [place] [address]- 8817 Sep, [facility] [place] [facility] [address] [id number] [place] [address]- 5731 Sep, [facility] [place] [facility] [address] [id number], [place] [address]- 4477 Sep, [facility] [place] [facility] [address] [id number] [place] [address]- 6738 Sep, [facility] [place] [facility] [address] [id number] [place] [address]- 0776 Sep, [facility] [place] [facility] [address] [id number] [place] [address]- 0455 Sep, [facility] [place] [facility] [address] [id number], [place] [address]- 6086 Sep, [facility] [place] [facility] [address] [id number] [place] [address]- 4566 Sep, [facility] [place] [facility] [address] [id number] [place] [address]- 8121 Aug, [facility] [place] [facility] [address] [id number] [place] [address]- 9860 Aug, [facility] [place] [facility] [address] [id number] [place] [address]- 8578 Aug, [facility] [place] [facility] [address] [id number] [place] [address]- 1454 Aug, [facility] [place] [facility] [address] [id number] [place] [address]- 7603 Aug, [facility] [place] [facility] [address] [id number] [place] [address]- 9569 Aug, [facility] [place] [facility] [address] [id number] [place] [address]- 5026 Aug, [facility] [place] [facility] [address] [id number] [place] [address]- 4163 Aug, [facility] [place] [facility] [address] [id number] [place] [address]- 7642 Aug, [facility] [place] [facility] [address] [id number] [place] [address]- 1779 Aug, [facility] [place] [facility] [address] [id number] [place] [address]- 3388 Aug, [facility] [place] [facility] [address] [id number] [place] [address]- 7134 Aug, [facility] [place] [facility] [address] [id number] [place] [address]- 8587 Aug, [facility] [place] [facility] [address] [id number] [place] [address]- 5329 Jul, [facility] [place] [facility] [address] [id number] [place] [address]- 3335 Jul, [facility] [place] [facility] [address] [id number] [place] [address]- 2369 Jul, [facility] [place] [facility] [address] [id number] [place] [address]- 2599 Jul, [facility] [place] [facility] [address] [id number] [place] [address]- 4532 Jul, [facility] [place] [facility] [address] [id number] [place] [address]- 7634 Jul, [facility] [place] [facility] [address] [id number] [place] [address]- 7487 Jul, [facility] [place] [facility] [address] [id number] [place] [address]- 7314 Jul, [facility] [place] [facility] [address] [id number] [place] [address]- 1761 Jul, [facility] [place] [facility] [address] [id number] [place] [address]- 0054 Jul, [facility] [place] [facility] [address] [id number] [place] [address]- 2463 Jul, [facility] [place] [facility] [address] [id number] [place] [address]- 4858 June, [facility] [place] [facility] [address] [id number] [place] [address]- 5238 June, [facility] [place] [facility] [address] [id number] [place] [address]- 1766 June, [facility] [place] [facility] [address] [id number] [place] [address]- 0574 June, [facility] [place] [facility] [address] [id number] [place] [address]- 1793 June, [facility] [place] [facility] [address] [id number] [place] [address]- 2531 16 May, 2013 [facility] [place] [facility] [address] [id number] [place] [address]- 6029 16 May, 2013 [facility] [place] [facility] [address] [id number] [place] [address]- 7312 15 May, 2013 [facility] [place] [facility] [address] [id number] [place] [address]- 0532 May, [facility] [place] [facility] [address] [id number] [place] [address] Apr, [facility] [place] [facility] [address] [id number] [place] [address] Apr, [facility] [place] [facility] [address] [id number] [place] [address] Apr, [facility] [place] [facility] [address] [id number] [place] [address] Apr, [facility] [place] [facility] [address] [id number] [place] [address] Apr, [facility] [place] [facility] [address] [id number] [place] [address] Apr, [facility] [place] [facility] [address] [id number] [place] [address] Apr, [facility] [place] [facility] [address] [id number] [place] [address] Apr, [facility] [place] [facility] [address] [id number] [place] [address] Mar, [facility] [place] [facility] [address] [id number] [place] [address] Mar, [facility] [place] [facility] [address] [id number] [place] [address] Mar, [facility] [place] [facility] [address] [id number] [place] [address] Mar, [facility] [place] [facility] [address] [id number] [place] [address] Feb, [facility] [address] [id number] [place] [address] Feb, [facility] [address] [id number] [place] [address] Feb, [facility] [address] [id number] [place] [address] Feb, [facility] [address] [id number] [place] [address] Jan, [facility] [address] [id number] [place] [address] Jan, [facility] [address] [id number] [place] [address] Jan, [facility] [address] [id number] [place] [address] Jan, [facility] [address] [id number] [place] [address] Jan, [facility] [address] [id number] [place] [address] Dec, [facility] [address] [id number] [place] [address] Dec, [facility] [address] [id number] [place] [address] Dec, [facility] [address] [id number] [place] [address] Dec, [facility] [place] [facility] [address] [id number] [place] [address] Dec, [facility] [place] [facility] [address] [id number] [place] [address] Dec, [facility] [address] [id number] [place] [address] Dec, [facility] [place] [facility] [address] [id number] [place] [address] Dec, [facility] [place] [facility] [address] [id number] [place] [address] Nov, [facility] [place] [facility] [address] [id number] [place] [address] Nov, [facility] [place] [facility] [address] [id number] [place] [address] Nov, [facility] [place] [facility] [address] [id number] [place] [address] Nov, [facility] [place] [facility] [address] [id number] [place] [address] Nov, [facility] [place] [facility] [address] [id number] [place] [address] Nov, [facility] [place] [facility] [address] [id number] [place] [address] 30 Oct, 2012 [facility] [place] [facility] [address] [id number] [place] [address] Oct, [facility] [place] [facility] [address] [id number], [place] [address] Oct, [facility] [place] [facility] [address] [id number], [place] [address] Oct, [facility] [place] [facility] [address] [id number], [place] [address] Sep, [facility] [place] [facility] [address] [id number] [place] [address] Sep, [facility] [place] [facility] [address] [id number], [place] [address] Sep, [facility] [place] [facility] [address] [id number], [place] [address] Aug, [facility] [place] [facility] [address] [id number], [place] [address] Aug, [facility] [id number] [address] Jul, [facility] [id number], [place] [address] Jul, [facility] [id number], [place] [address] June, [facility] [id number], [place] [address] June, [facility] [id number] [place] [address] June, [facility] [address] [id number], [place] [address] May, [facility] [id number] [place] [address] Mar, [facility] [id number], [place] [address] Mar, [facility] [id number], [place] [address] Mar, [facility] [id number], [place] [address] Mar, IMMUNIZATIONS No Known Immunizations SOCIAL HISTORY Never Assessed REASON FOR VISIT Med Refill PLAN OF CARE VITAL SIGNS MEDICATIONS Medication Instructions Dosage Frequency Start Date End Date Duration Status Gabapentin 800 MG TAKE ONE (1) TABLET BY MOUTH THREE (3) TIMES DAILY 30 Active RESULTS No Results PROCEDURES No Known [...]
--- OUTSIDE RECORDS SUMMARY | 2017-11-12 21:44 | XMS REPORT ---
Author TINO Resendiz [facility] eClinicalWorks Address Unknown Phone Unavailable Care Team Providers Care Lead Cook Name Role Phone TINO ALTAMIRANO CP Unavailable Allergies No Known Allergies Problems Problem Type Condition Code Onset Dates Condition Status Problem Obsessive compulsive disorder F42 Active Problem Apnea R06.81 Active Problem Anxiety F41.9 Active Problem BPH (benign prostatic hyperplasia) N40.0 Active Problem Chronic viral hepatitis C B18.2 Active Problem Panic disorder F41.0 Active Problem Depression F32.9 Active Problem ED (erectile dysfunction) N52.9 Active Problem HTN (hypertension) I10 Active Medications Medication Code System Code Instructions Start Date End Date Status Dosage Guanfacine HCl [facility] [id number] 1 MG TAKE ONE TABLET BY MOUTH AT BEDTIME Results No Known Results Summary Purpose eClinicalWorks Submission
--- OUTSIDE RECORDS SUMMARY | 2017-11-12 21:44 | XMS REPORT ---
Author Author JUANA HAYLEY Organization [facility] Address [address] [place] [address] Care Team Providers Care Neon Molder Name Role Phone HAYLEY ARIAS Unavailable PROBLEMS Type Condition ICD9-CM Code VIN61-JS Code Onset Dates Condition Status SNOMED Code Problem Obsessive compulsive disorder F42 Active 846472803 Problem Panic disorder F41.0 Active 097550827 Problem BPH (benign prostatic hyperplasia) N40.0 Active 729996107 Problem Chronic hepatitis C without hepatic coma B18.2 Active 780138000 Problem Back pain at L4-L5 level M54.5 Active 303176799 Problem Constipation, unspecified constipation type K59.00 Active 48138685 Problem Chronic pain G89.29 Active 51119680 Problem Degenerative disc disease at L5-S1 level M51.36 Active 32794586 Problem Benign nodular prostatic hyperplasia, presence of lower urinary tract symptoms unspecified N40.0 Active 736734948 Problem Other obsessive-compulsive disorder F42.8 Active 154568451 Problem HTN (hypertension) I10 Active 53730288 Problem Depression F32.9 Active 27742411 Problem Apnea R06.81 Active 9504255 Problem Anxiety F41.9 Active 75830197 Problem ED (erectile dysfunction) N52.9 Active 135658919 Problem Chronic viral hepatitis C B18.2 Active 640875338 ALLERGIES No Information ENCOUNTERS Encounter Location Date Diagnosis [facility] [id number] [place] [address] 81857- 7608 Aug, Degenerative disc disease at L5-S1 level M51.36 [facility] [id number] [place] [place] [address] 17653- 5940 02 Aug, 2017 [facility] [id number] [place] [address] 27490- 4887 14 Jul, 2017 HTN (hypertension) I10 ; Depression F32.9 ; Degenerative disc disease at L5-S1 level M51.36 ; Benign nodular prostatic hyperplasia, presence of lower urinary tract symptoms unspecified N40.0 ; High risk medication use Z79.899 ; Controlled substance agreement signed Z79.899 ; Anxiety F41.9 ; Chronic hepatitis C without hepatic coma B18.2 and Injury of left knee, initial encounter S89.92XA [facility] [address] [address]691- 1849 Jul, [place] [address] 24513- 0998 June, Degenerative disc disease at L5-S1 level M51.36 [place] [address] 70063- 6949 Mar, [place] [address] 57282- 1646 Mar, Controlled substance agreement signed Z79.899 and Degenerative disc disease at L5-S1 level M51.36 [place] [address] 39185- 6037 Mar, Controlled substance agreement signed Z79.899 [place] [address] 94838- 5765 Feb, [place] [address] 85583- 4834 Feb, Degenerative disc disease at L5-S1 level M51.36 [place] [address] 75611- 1681 Jan, HTN (hypertension) I10 ; Chronic pain G89.29 and Back pain at L4-L5 level M54.5 [place] [address] 75409- 9581 Dec, Degenerative disc disease at L5-S1 level M51.36 [place] [address] 06439- 1596 Dec, Degenerative disc disease at L5-S1 level M51.36 and Depression F32.9 [facility] [id number] [place] [address] 50183- 0911 Oct, [facility] [id number] [place] [address] 21707- 8891 Sep, Chronic viral hepatitis C B18.2 ; BPH (benign prostatic hyperplasia) N40.0 ; HTN (hypertension) I10 ; Panic disorder F41.0 ; Obsessive compulsive disorder F42 ; Constipation, unspecified constipation type K59.00 and Degenerative disc disease at L5-S1 level M51.36 [place] [id number] [place] [address] 45936- 5215 Aug, Chronic pain G89.29 [place] [id number] [place] [address] 16721- 2049 Aug, [place] [address] 49147- 2905 May, Chronic pain G89.29 and Anxiety F41.9 [place] [id number] [place] [address] 24107- 9247 Apr, Chronic pain G89.29 and Anxiety F41.9 [place] [id number] [place] [address] 18526- 4064 Apr, Chronic pain G89.29 [place] [id number] [place] [address] 38729- 5737 Mar, Anxiety F41.9 and Chronic pain G89.29 [place] [id number] [place] [address] 50422- 8451 Feb, [facility] [address] 45320- 2182 Feb, Depression F32.9 [facility] [id number] [place] [address] 07666- 7974 Feb, [facility] [id number] [place] [address] 40697- 7656 Feb, Chronic viral hepatitis C B18.2 ; ED (erectile dysfunction) N52.9 ; HTN (hypertension) I10 ; Depression F32.9 ; Constipation, unspecified constipation type K59.00 ; Chronic pain G89.29 ; Benign nodular prostatic hyperplasia, presence of lower urinary tract symptoms unspecified N40.0 ; Anxiety F41.9 and Screening cholesterol level Z13.220 [place] [address] 26977- 5157 Feb, [place] [address] 60214- 0850 Feb, Chronic pain G89.[address] 41116- 8771 Feb, Anxiety F41.9 ; Chronic pain G89.29 ; Obsessive compulsive disorder F42 and HTN (hypertension) I10 [address] 57116- 6665 Dec, [place] [address] 37162- 3500 Dec, [address] 64632- 1301 Dec, Anxiety F41.[address] 87168- 2537 Nov, Chronic viral hepatitis C B18.2 ; Anxiety F41.9 ; HTN ( hypertension) I10 ; Panic disorder F41.0 ; BPH (benign prostatic hyperplasia) N40.0 ; ED (erectile dysfunction) N52.9 ; Obsessive compulsive disorder F42 ; Constipation, unspecified constipation type K59.00 and Chronic pain G89.[address] 21835- 3137 Nov, [address] 20880- 3719 Nov, [address] [place] [address]- 2024 30 Oct, 2015 [facility] [address] 44129- 5376 Aug, [facility] [address] 33310- 6797 Jul, Chronic viral hepatitis C B18.2 ; BPH (benign prostatic hyperplasia) N40.0 ; ED (erectile dysfunction) N52.9 ; HTN (hypertension) I10 ; Panic disorder F41.0 ; Depression F32.9 ; Obsessive compulsive disorder F42 ; Apnea R06.81 ; Other chronic pain G89.29 and Dorsalgia, unspecified M54.9 [facility] [address] 38718- 6868 08 Jul, 2015 Chronic pain G89.29 and Anxiety F41.9 [place] [address] 30343- 0784 June, Chronic pain G89.29 [facility] [address] 83620- 8764 June, Panic disorder F41.0 and Chronic pain G89.29 [facility] [address] 13403- 3916 May, [facility] [address] 86800- 9327 14 May, 2015 [facility] [id number] [place] [address] 05987- 2457 12 May, 2015 [facility] [id number] [place] [address] 98019 -4691 23 Apr, 2015 Sinusitis J32.9 [facility] [address] 47623- 5928 18 Apr, 2015 [facility] [address] 11036- 1452 15 Apr, 2015 [facility] [address] [place] [address]- 4434 Mar, [place] [id number] [place] [address] 48841- 2719 Mar, Depression F32.9 ; Panic disorder F41.0 and Obsessive compulsive disorder F42 [place] [address] 36945- 8112 Mar, [place] [address] 80305- 1830 Feb, [place] [address] 81216- 6922 Feb, Anxiety F41.9 ; ED (erectile dysfunction) N52.9 ; HTN ( hypertension) I10 ; Panic disorder F41.0 ; Depression F32.9 ; Obsessive compulsive disorder F42 ; BPH (benign prostatic hyperplasia) N40.0 ; Degenerative joint disease of low back M47.9 and Vitamin D deficiency E55.9 [place] [id number] [place] [address] 19026- 4988 Feb, [place] [address] 85462- 6567 Dec, [place] [id number] [place] [address] 25615- 8141 Dec, [place] [id number] [place] [address] 86307- 7375 Dec, [place] [id number] [place] [address] 14390- 7268 Nov, Chronic viral hepatitis C B18.2 ; Anxiety F41.9 ; BPH ( benign prostatic hyperplasia) N40.0 ; ED (erectile dysfunction) N52.9 ; HTN ( hypertension) I10 ; Panic disorder F41.0 ; Depression F32.9 ; Obsessive compulsive disorder F42 ; Apnea R06.81 ; Chronic pain G89.29 and Vitamin D deficiency E55.9 [place] [id number] [place] [address] 99323- 2546 Nov, [facility] [address] 0788 Nov, [facility] [address] [address]- 7498 Nov, [facility] [address] 7632 Nov, [facility] [address] [address]- 3264 Oct, [facility] [address] 1402 Oct, [facility] [address] 0984 Oct, [facility] [address]- 6500 Sep, [facility] [address], [place] [address]- 1737 Sep, [facility] [address], [place] [address]- 2670 Sep, [facility] [address] [address]- 7925 Sep, [facility] [id number] 2279 Aug, Essential hypertension, benign 401.1 ; Obsessive-compulsive disorders 300.3 ; Anxiety state, unspecified 300.00 ; Depressive disorder, not elsewhere classified 311 ; Lumbago 724.2 ; Hepatitis C 070.70 and BPH (benign prostatic hyperplasia) 600.00 [facility] [address] [address]- 0586 Aug, [facility] [id number] 7808 Aug, [facility] [address], [place] [address]- 4294 Jul, [facility] [address], [place] [address]- 8869 June, [facility] [place] [facility] [address] [address]- 1408 May, Lumbago 724.2 ; Other chronic pain 338.29 and Dizziness 780.4 [facility] [place] [facility] [id number] [address]- 3520 May, [facility] [place] [facility] [id number] [address]- 5764 May, [facility] [place] [facility] [address], [place] [address]- 5400 Apr, [facility] [place] [facility] [address], [place] [address]- 0608 Apr, [facility] [place] [facility] [address], [place] [address]- 9667 Apr, [facility] [place] [facility] [address], [place] [address]- 2799 Apr, [facility] [place] [facility] [address], [place] [address]- 4700 Apr, [facility] [place] [facility] [address], [place] [address]- 5642 Apr, [facility] [place] [facility] [address], [place] [address]- 6472 Mar, [facility] [place] [facility] [id number], [place] [address]- 6702 Mar, [facility] [place] [facility] [address], [place] [address]- 9885 Mar, [facility] [place] [facility] [address], [place] [address]- 0269 Mar, [facility] [place] [facility] [id number] [place] [address]- 9777 10 Mar, 2014 [facility] [place] [facility] [address] [id number] [place] [address]- 4056 10 Mar, 2014 [facility] [place] [facility] [address] [id number] [place] [address]- 8926 10 Mar, 2014 [facility] [place] [facility] [address] [id number] [place] [address]- 3474 10 Mar, 2014 [facility] [place] [facility] [address] [id number] [place] [address]- 7997 Feb, [facility] [place] [facility] [address] [id number] [place] [address]- 1432 Feb, [facility] [place] [facility] [address] [id number] [place] [address]- 1884 Jan, [facility] [place] [facility] [address] [id number] [place] [address]- 7129 Jan, [facility] [place] [facility] [address] [id number] [place] [address]- 4726 Jan, [facility] [place] [facility] [address] [facility] [id number] [place] [address]- 1598 Jan, [facility] [place] [facility] [address] [facility] [id number] [place] [address]- 2639 Nov, [facility] [place] [facility] [address] [id number] [place] [address]- 4480 31 Nov, 2013 [facility] [place] [facility] [address] [id number] [place] [address]- 3953 16 Nov, 2013 [facility] [place] [facility] [address] [id number] [place] 3267 16 Nov, 2013 [facility] [place] [facility] [address] [id number] [place] [address]- 6620 14 Nov, 2013 [facility] [place] [facility] [address] [facility] [id number] [place] [address]- 2161 14 Nov, 2013 [facility] [place] [facility] [address] [id number] [place] [address]- 1107 Nov, [facility] [place] [facility] [address] [id number] [place] [address]- 6756 Nov, [facility] [place] [facility] [address] [id number] [place] [address]- 2362 Nov, [facility] [place] [facility] [address] [id number] [place] [address]- 2233 Nov, [facility] [place] [facility] [address] [id number] [place] [address]- 4616 Nov, [facility] [place] [facility] [address] [id number] [place] [address]- 9187 Nov, [facility] [place] [facility] [address] [id number] [place] [address]- 6926 12 Oct, 2013 [facility] [place] [facility] [address] [id number] [place] [address]- 5871 12 Oct, 2013 [facility] [place] [facility] [address] [id number] [place] [address]- 5121 12 Oct, 2013 [facility] [place] [facility] [address] [id number], [place] [address]- 2857 12 Oct, 2013 [facility] [place] [facility] [address] [id number], [place] [address]- 9307 11 Oct, 2013 [facility] [place] [facility] [address] [id number], [place] [address]- 6062 11 Oct, 2013 [facility] [place] [facility] [address] [id number] [place] [address]- 8435 10 Oct, 2013 [facility] [place] [facility] [address] [id number], [place] [address]- 5041 10 Oct, 2013 [facility] [place] [facility] [address] [id number], [place] [address]- 3547 10 Oct, 2013 [facility] [place] [facility] [address] [id number], [place] [address]- 3089 10 Oct, 2013 [facility] [place] [facility] [address] [id number] [place] [address]- 2038 03 Oct, 2013 [facility] [place] [facility] [address] [id number] [place] [address]- 4249 Oct, 2013 [facility] [place] [facility] [address] [id number] [place] [address]- 1643 Oct, 2013 [facility] [place] [facility] [address] [id number] [place] [address]- 1803 Oct, 2013 [facility] [place] [facility] [address] [id number] [place] [address]- 3820 Oct, 2013 [facility] [place] [facility] [address] [id number] [place] [address]- 9875 Oct, 2013 [facility] [place] [facility] [address] [id number] [place] [address]- 0185 Oct, 2013 [facility] [place] [facility] [address] [id number] [place] [address]- 2037 Oct, 2013 [facility] [place] [facility] [address] [id number] [place] [address]- 5863 Sep, [facility] [place] [facility] [address] [id number] [place] [address]- 8542 Sep, [facility] [place] [facility] [address] [id number] [place] [address]- 5554 Sep, [facility] [place] [facility] [address] [id number], [place] [address]- 2252 Sep, [facility] [place] [facility] [address] [id number] [place] [address]- 5208 Sep, [facility] [place] [facility] [address] [id number] [place] [address]- 8876 Sep, [facility] [place] [facility] [address] [id number] [place] [address]- 2313 Sep, [facility] [place] [facility] [address] [id number] [place] [address]- 2679 Sep, [facility] [place] [facility] [address] [id number] [place] [address]- 3938 Sep, [facility] [place] [facility] [address] [id number] [place] [address]- 1245 Sep, [facility] [place] [facility] [address] [id number] [place] [address]- 7896 Aug, [facility] [place] [facility] [address] [id number] [place] [address]- 4481 Aug, [facility] [place] [facility] [address] [id number] [place] [address]- 5158 Aug, [facility] [place] [facility] [address] [id number] [place] [address]- 8084 Aug, [facility] [place] [facility] [address] [id number] [place] [address]- 4221 Aug, [facility] [place] [facility] [address] [id number] [place] [address]- 5177 Aug, [facility] [place] [facility] [address] [id number] [place] [address]- 1887 Aug, [facility] [place] [facility] [address] [id number] [place] [address]- 4870 Aug, [facility] [place] [facility] [address] [id number] [facility] [place] [address]- 8529 Aug, [facility] [place] [facility] [address] [id number] [facility] [place] [address]- 9028 Aug, [facility] [place] [facility] [address] [id number] [place] [address]- 7293 Aug, [facility] [place] [facility] [address] [id number] [place] [address]- 1972 Aug, [facility] [place] [facility] [address] [id number] [place] [address]- 5686 Aug, [facility] [place] [facility] [address] [id number] [place] [address]- 1128 Jul, [facility] [place] [facility] [address] [id number] [place] [address]- 9562 Jul, [facility] [place] [facility] [address] [id number] [place] [address]- 4648 Jul, [facility] [place] [facility] [address] [id number] [place] [address]- 3873 Jul, [facility] [place] [facility] [address] [id number] [place] [address]- 3386 Jul, [facility] [place] [facility] [address] [id number] [place] [address]- 1223 Jul, [facility] [place] [facility] [address] [id number] [place] [address]- 8947 Jul, [facility] [place] [facility] [address] [id number] [place] [address]- 0885 Jul, [facility] [place] [facility] [address] [id number] [place] [address]- 2782 Jul, [facility] [place] [facility] [address] [id number] [place] [address]- 5074 Jul, [facility] [place] [facility] [address] [id number], [place] [address]- 0652 Jul, [facility] [place] [facility] [address] [id number], [place] [address]- 7860 June, [facility] [place] [facility] [address] [id number] [place] [address]- 4565 June, [facility] [place] [facility] [address] [id number] [place] [address]- 2222 June, [facility] [place] [facility] [address] [id number] [place] [address]- 5143 June, [facility] [place] [facility] [address] [id number] [place] [address]- 2791 June, [facility] [place] [facility] [address] [id number] [place] [address]- 7622 16 May, 2013 [facility] [place] [facility] [address] [id number] [place] [address]- 4066 16 May, 2013 [facility] [place] [facility] [address] [id number] [place] [address]- 9863 15 May, 2013 [facility] [place] [facility] [address] [id number] [place] [address]- 1837 May, [facility] [place] [facility] [address] [id number] [place] [address]- 3068 Apr, [facility] [place] [facility] [address] [id number] [place] [address]- 1576 Apr, [facility] [place] [facility] [address] [id number] [place] [address]- 5589 Apr, [facility] [place] [facility] [address] [id number] [place] [address]- 0304 Apr, [facility] [place] [facility] [address] [id number] [place] [address]- 2349 Apr, [facility] [place] [facility] [address] [facility] [id number] [place] [address]- 9333 Apr, [facility] [place] [facility] [address] [id number] [place] [address]- 7219 Apr, [facility] [place] [facility] [address] [id number] [place] [address]- 8766 Apr, [facility] [place] [facility] [address] [id number] [place] [address] Mar, [facility] [place] [facility] [address] [id number] [place] [address] Mar, [facility] [place] [facility] [address] [id number] [place] [address] Mar, [facility] [place] [facility] [address] [id number] [place] [address] Mar, [facility] [place] [facility] [address] [id number] [place] [address] Feb, [facility] [place] [facility] [address] [id number] [place] [address] Feb, [facility] [place] [facility] [address] [id number] [place] [address] Feb, [facility] [place] [facility] [address] [id number] [place] [address] Feb, [facility] [place] [facility] [address] [id number] [place] [address] Jan, [facility] [place] [facility] [address] [id number] [place] [address] Jan, [facility] [place] [facility] [address] [id number] [place] [address] Jan, [facility] [place] [facility] [address] [id number] [place] [address] Jan, [facility] [place] [facility] [address] [id number], [place] [address] Jan, [facility] [place] [facility] [address] [id number], [place] [address] Dec, [facility] [place] [facility] [address] [id number], [place] [address] Dec, [facility] [place] [facility] [address] [id number] [place] [address] Dec, [facility] [place] [facility] [address] [id number], [place] [address] Dec, [facility] [place] [facility] [address] [facility] [id number], [place] [address] Dec, [facility] [place] [facility] [address] [id number], [place] [address] Dec, [facility] [place] [facility] [address] [id number] [place] [address] Dec, [facility] [place] [facility] [address] [id number] [place] [address] Dec, [facility] [place] [facility] [address] [facility] [id number] [place] [address] Nov, [facility] [place] [facility] [address] [id number] [place] [address] Nov, [facility] [place] [facility] [address] [id number] [place] [address] Nov, [facility] [place] [facility] [address] [id number] [place] [address] Nov, [facility] [place] [facility] [address] [facility] [id number] [place] [address] Nov, [facility] [place] [facility] [address] [id number] [place] [address] Nov, [facility] [place] [facility] [address] [id number] [place] [address] 30 Oct, 2012 [facility] [place] [facility] [address] [facility] [id number] [place] [address] Oct, [facility] [place] [facility] [address] [id number] [place] [address] Oct, [facility] [place] [facility] [address] [id number], [place] [address] 05 Oct, 2012 [facility] [place] [facility] [address] [id number] [place] [address] Sep, [facility] [place] [facility] [address] [facility] [id number] [place] [address] Sep, [facility] [place] [facility] [address] [facility] [id number] [place] [address] Sep, [facility] [place] [facility] [id number], [place] [address] Aug, [facility] [address] [id number], [place] [address] Aug, [facility] [id number], [place] [address] Jul, [facility] [id number], [place] [address] Jul, [facility] [id number], [place] [address] June, [facility] [id number], [place] [address] June, [facility] [id number], [place] [address] June, [facility] [id number], [place] [address] May, [facility] [id number], [place] [address] Mar, [facility] [id number], [place] [address] Mar, [facility] [address] [id number], [place] [address] Mar, [facility] [address] [id number], [place] [address] Mar, IMMUNIZATIONS No Known Immunizations SOCIAL HISTORY Never Assessed REASON FOR VISIT Controlled Med Refill PLAN OF CARE VITAL SIGNS MEDICATIONS Medication Instructions Dosage Frequency Start Date End Date Duration Status Hydrocodone-Acetaminophen 10-325 MG Orally every 6 hrs 1 tablet as needed 6h June, 28 days Active RESULTS No Results PROCEDURES No [...]
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
--- OUTSIDE RECORDS SUMMARY | 2017-11-12 21:45 | XMS REPORT ---
Author Author ERICK MADDEN eClinicalWorks Address Unknown Phone Unavailable Care Team Providers Care Sap Business Analyst Name Role Phone ERICK MADDEN CP Unavailable Allergies No Known Allergies Problems Problem Type Condition Code Onset Dates Condition Status Problem Obsessive-compulsive disorders 300.3 Active Problem Lumbago 724.2 Active Problem Unspecified viral hepatitis C without hepatic coma 070.70 Active Problem Anxiety state, unspecified 300.00 Active Problem Hypertrophy (benign) of prostate without urinary obstruction and other lower urinary tract symptoms [LUTS] 600.00 Active Problem Hepatitis C 070.70 Active Problem Other chronic pain 338.29 Active Problem Depressive disorder, not elsewhere classified 311 Active Problem Psychosexual dysfunction with inhibited sexual excitement 302.72 Active Problem Essential hypertension, benign 401.1 Active Problem Apnea 786.03 Active Problem Encounter for long-term (current) use of other medications V58.69 Active Problem Panic disorder without agoraphobia 300.01 Active Medications Medication Code System Code Instructions Start Date End Date Status Dosage Klonopin [facility] [address]-94 1 MG Orally Twice a day PRN anxiety MUST LAST 30 DAYS July 02, 2014 0.5-1 tablet Results No Known Results Summary Purpose eClinicalWorks Submission
--- OUTSIDE RECORDS SUMMARY | 2017-11-12 21:45 | XMS REPORT ---
Author TINO Resendiz [facility] eClinicalWorks Address Unknown Phone Unavailable Care Team Providers Care Director Employee Safety And Health Name Role Phone TINO ALTAMIRANO CP Unavailable Allergies, Adverse Reactions, Alerts Substance Reaction Event Type N.K.D.A. Info Not Available Non Drug Allergy Problems Problem Type Condition Code Onset Dates Condition Status Assessment Anxiety F41.9 Active Problem Obsessive compulsive disorder F42 Active Problem Apnea R06.81 Active Problem Anxiety F41.9 Active Problem BPH (benign prostatic hyperplasia) N40.0 Active Problem Chronic viral hepatitis C B18.2 Active Problem Panic disorder F41.0 Active Problem Depression F32.9 Active Problem ED (erectile dysfunction) N52.9 Active Problem HTN (hypertension) I10 Active Assessment Vitamin D deficiency E55.9 Active Assessment Degenerative joint disease of low back M47.9 Active Assessment Depression F32.9 Active Assessment Panic disorder F41.0 Active Assessment BPH (benign prostatic hyperplasia) N40.0 Active Assessment HTN (hypertension) I10 Active Assessment Obsessive compulsive disorder F42 Active Assessment ED (erectile dysfunction) N52.9 Active Medications Medication Code System Code Instructions Start Date End Date Status Dosage Guanfacine HCl [facility] 23409167615 1 MG TAKE ONE TABLET BY MOUTH AT BEDTIME Gabapentin [facility] [address]-28 800 MG Orally Three times a day Nov 16, 2014 1 tablet Sertraline HCl [facility] 28335761427 100 MG Orally Once a day 1 tablet Baclofen [facility] [address]-15 10 MG Orally twice daily Nov 16, 2014 Feb 23, 2015 1 tablet with food or milk Hydrochlorothiazide [facility] [address]-29 25 MG Orally Once a day TAKE ONE TABLET BY MOUTH ONCE DAILY IN THE MORNING Calcium & Magnesium Carbonates [facility] 93[address] 311-232 mg July 09, 2013 take 2 tablets by Oral route as needed or as directed. 1 time per day Not to exceed 24 tablets in 24hrs Gabapentin [facility] [address]-96 800 MG Orally Three times a day Sep 18, 2013 1 capsule Vitamin D3 [facility] 1979[address] 1,000 unit Once a day July 09, 2013 Feb 23, 2015 1 capsule by Oral route 1 time per day Finasteride [facility] [address]-29 5 MG Orally Once a day TAKE ONE TABLET BY MOUTH DAILY Diazepam [facility] [address]-24 5 MG Orally Twice a day Feb 16, 2015 1 tablet as needed Procedures Procedure Coding System Code Date [facility] VISIT ESTABLISHED PATIENT CPT-4 G0467 Feb 16, 2015 Office Visit, Est Pt., Level 4 CPT-4 35086 Feb 16, 2015 URINALYSIS, AUTO, W/O SCOPE CPT-4 25264 Feb 16, 2015 Vital Signs Date/Time: Feb 16, 2015 Temperature 98.4 F Weight 265.3 lbs Height 76 in BMI 32.29 Index Blood Pressure Diastolic 96 mmHg Blood Pressure Systolic 150 mmHg Cardiac Monitoring Heart Rate 80 bpm Results Name Result Date Reference Range Unit Abnormality Flag UA LONG DIP (IN HOUSE) ----ABRAM Negative [id number] ----NIT Negative [id number] ----Exp date [id number] ----Lot # [id number] ----SG >=1.030 20150216 ----KET Negative [id number] ----HEATHER Negative 20150216 ----GLU Negative [id number] ----Odor Slight 20150216 ----pH 5.5 20150216 ----BLO Negative [id number] ----URO 0.2 20150216 ----Protein Negative [id number] ----Lot # [id number] ----Exp date [id number] ----Clarity Clear [id number] ----Color Yellow [id number] Summary Purpose eClinicalWorks Submission
--- OUTSIDE RECORDS SUMMARY | 2017-11-12 21:45 | XMS REPORT ---
Author Author TINO ALTAMIRANO Organization [facility] Address [address] [place] [address] Care Team Providers Care Hand Ironer Name Role Phone EVELIA TINO Unavailable PROBLEMS Type Condition ICD9-CM Code ZPF84-WN Code Onset Dates Condition Status SNOMED Code Problem Chronic viral hepatitis C B18.2 Active 775930469 Problem BPH (benign prostatic hyperplasia) N40.0 Active 428313228 Problem Obsessive compulsive disorder F42 Active 569729236 Problem Back pain at L4-L5 level M54.5 Active 565888864 Problem Degenerative disc disease at L5-S1 level M51.36 Active 19440859 Problem Chronic pain G89.29 Active 93473378 Problem Panic disorder F41.0 Active 451343309 Problem Benign nodular prostatic hyperplasia, presence of lower urinary tract symptoms unspecified N40.0 Active 199482945 Problem Constipation, unspecified constipation type K59.00 Active 94596380 Problem ED (erectile dysfunction) N52.9 Active 185542372 Problem HTN (hypertension) I10 Active 92945490 Problem Other obsessive-compulsive disorder F42.8 Active 780254486 Problem Depression F32.9 Active 90612308 Problem Apnea R06.81 Active 6840776 Problem Anxiety F41.9 Active 43444299 ALLERGIES Unknown Allergies SOCIAL HISTORY No smoking Hx information available PLAN OF CARE VITAL SIGNS MEDICATIONS Unknown Medications RESULTS No Results PROCEDURES No Known procedures IMMUNIZATIONS No Known Immunizations
--- OUTSIDE RECORDS SUMMARY | 2017-11-12 21:45 | XMS REPORT ---
Author TINO Resendiz [facility] eClinicalWorks Address Unknown Phone Unavailable Care Team Providers Care Medical Intern Name Role Phone TINO ALTAMIRANO CP Unavailable [...] Instructions Start Date End Date Status Dosage Sertraline HCl [facility] [address]-49 100 MG Orally Once a day 1 tablet Results No Known Results Summary Purpose eClinicalWorks Submission
--- OUTSIDE RECORDS SUMMARY | 2017-11-12 21:45 | XMS REPORT ---
Author Author TINO ALTAMIRANO Organization [facility] Address [address] [place] [address] Care Team Providers Care Multi Needle Machine Operator Name Role Phone NORMA ALTAMIRANONETTE Unavailable PROBLEMS Type Condition ICD9-CM Code MGY01-SU Code Onset Dates Condition Status SNOMED Code Problem Chronic viral hepatitis C B18.2 Active 876197951 Problem BPH (benign prostatic hyperplasia) N40.0 Active 491865711 Problem Obsessive compulsive disorder F42 Active 009035350 Problem Back pain at L4-L5 level M54.5 Active 200782120 Problem Degenerative disc disease at L5-S1 level M51.36 Active 56520596 Problem Chronic pain G89.29 Active 71271506 Problem Panic disorder F41.0 Active 814946111 Problem Benign nodular prostatic hyperplasia, presence of lower urinary tract symptoms unspecified N40.0 Active 735674714 Problem Constipation, unspecified constipation type K59.00 Active 09805402 Problem ED (erectile dysfunction) N52.9 Active 056971208 Problem HTN (hypertension) I10 Active 59523225 Problem Other obsessive-compulsive disorder F42.8 Active 390281882 Problem Depression F32.9 Active 49306664 Problem Apnea R06.81 Active 3488830 Problem Anxiety F41.9 Active 22568946 ALLERGIES No Information SOCIAL HISTORY Never Assessed PLAN OF CARE VITAL SIGNS MEDICATIONS Medication Instructions Dosage Frequency Start Date End Date Duration Status Hydrocodone-Acetaminophen 10-325 MG Orally every 6 hrs 1 tablet as needed 6h 24 Apr, 2016 28 days Active Diazepam 5 mg Orally Twice a day 1 tablet as needed 12h 12 Feb, 2015 28 days Active RESULTS No Results PROCEDURES [...]
--- OUTSIDE RECORDS SUMMARY | 2017-11-12 21:46 | XMS REPORT ---
Author TINO Resendiz [facility] eClinicalWorks Address Unknown Phone Unavailable Care Team Providers Care Chief Data Officer Name Role Phone TINO ALTAMIRANO CP Unavailable Allergies, Adverse Reactions, Alerts Substance Reaction Event Type N.K.D.A. Info Not Available Non Drug Allergy Problems Problem Type Condition Code Onset Dates Condition Status Assessment Chronic viral hepatitis C B18.2 Active Problem Obsessive compulsive disorder F42 Active Problem Apnea R06.81 Active Problem Anxiety F41.9 Active Problem BPH (benign prostatic hyperplasia) N40.0 Active Problem Chronic viral hepatitis C B18.2 Active Problem Panic disorder F41.0 Active Problem Depression F32.9 Active Problem ED (erectile dysfunction) N52.9 Active Problem HTN (hypertension) I10 Active Assessment Apnea R06.81 Active Assessment Obsessive compulsive disorder F42 Active Assessment Vitamin D deficiency E55.9 Active Assessment Chronic pain G89.29 Active Assessment HTN (hypertension) I10 Active Assessment ED (erectile dysfunction) N52.9 Active Assessment Depression F32.9 Active Assessment BPH (benign prostatic hyperplasia) N40.0 Active Assessment Panic disorder F41.0 Active Assessment Anxiety F41.9 Active Medications Medication Code System Code Instructions Start Date End Date Status Dosage Guanfacine HCl [facility] 78513276044 1 MG TAKE ONE TABLET BY MOUTH AT BEDTIME Klonopin [facility] [address]-06 1 MG Orally Twice a day PRN anxiety MUST LAST 30 DAYS July 02, 2014 0.5-1 tablet Hydrochlorothiazide [facility] [address]-92 25 MG Orally Once a day TAKE ONE TABLET BY MOUTH ONCE DAILY IN THE MORNING Baclofen [facility] [address]-69 10 MG Orally twice daily Nov 16, 2014 Feb 23, 2015 1 tablet with food or milk Gabapentin [facility] [address]-48 800 MG Orally Three times a day Nov 16, 2014 1 tablet Sertraline HCl [facility] 55323688385 100 MG TAKE ONE TABLET BY MOUTH ONCE DAILY Vitamin D3 [facility] [address] 1,000 unit Once a day July 09, 2013 Feb 23, 2015 1 capsule by Oral route 1 time per day Finasteride [facility] [address]-25 5 MG Orally Once a day TAKE ONE TABLET BY MOUTH DAILY Calcium & Magnesium Carbonates [facility] [address] 311-232 mg July 09, 2013 take 2 tablets by Oral route as needed or as directed. 1 time per day Not to exceed 24 tablets in 24hrs Hydrocodone-Acetaminophen [facility] [address]-52 10-325 MG Orally 4 times a day April 16, 2014 Mar 25, 2015 1 tablet as needed Gabapentin [facility] [address]-66 800 MG Orally Three times a day Sep 18, 2013 1 capsule Procedures Procedure Coding System Code Date No Charge CPT-4 22336 Nov 25, 2014 ASSAY OF PSA, TOTAL CPT-4 78400 Nov 25, 2014 LAB NOT BILLED BY [facility] CPT-4 NOBLL Nov 25, 2014 VENIPUNCT, ROUTINE* CPT-4 33215 Nov 25, 2014 Office Visit, Est Pt., Level 4 CPT-4 64425 Nov 25, 2014 [facility] VISIT ESTABLISHED PATIENT CPT-4 G0467 Nov 25, 2014 SINGLE IMMUNIZATION ADMIN CPT-4 31568 Nov 25, 2014 FLUARIX QUAD (3 & UP)-GSK-2014 CPT-4 58169 Nov 25, 2014 Vital Signs Date/Time: Nov 25, 2014 Temperature 98.4 F Weight 258.6 lbs Height 76 in BMI 31.47 Index Blood Pressure Diastolic 78 mmHg Blood Pressure Systolic 122 mmHg Cardiac Monitoring Heart Rate 82 bpm Results Name Result Date Reference Range Unit Abnormality Flag ROUTINE VENIPUNCTURE TSH Immunizations Vaccine Administration Date FLUARIX QUAD (3 & UP)-GSK-2014Nov 25, 2014 Summary Purpose eClinicalWorks Submission
--- OUTSIDE RECORDS SUMMARY | 2017-11-12 21:46 | XMS REPORT ---
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 Name Role Phone HAYLEY ARIAS Unavailable PROBLEMS Type Condition ICD9-CM Code VZP69-EC Code Onset Dates Condition Status SNOMED Code Problem Obsessive compulsive disorder F42 Active 480401234 Problem Panic disorder F41.0 Active 860367554 Problem BPH (benign prostatic hyperplasia) N40.0 Active 149865461 Problem Chronic hepatitis C without hepatic coma B18.2 Active 211006695 Problem Back pain at L4-L5 level M54.5 Active 871155107 Problem Constipation, unspecified constipation type K59.00 Active 47395210 Problem Chronic pain G89.29 Active 57836121 Problem Degenerative disc disease at L5-S1 level M51.36 Active 96414694 Problem Benign nodular prostatic hyperplasia, presence of lower urinary tract symptoms unspecified N40.0 Active 194055910 Problem Other obsessive-compulsive disorder F42.8 Active 604374753 Problem HTN (hypertension) I10 Active 91345488 Problem Depression F32.9 Active 29775698 Problem Apnea R06.81 Active 6788540 Problem Anxiety F41.9 Active 14178489 Problem ED (erectile dysfunction) N52.9 Active 894906892 Problem Chronic viral hepatitis C B18.2 Active 247157636 ALLERGIES No Information ENCOUNTERS Encounter Location Date Diagnosis [facility] [address] [facility] [id number], [place] [address] Aug, [facility] [address] [place] [id number] [place] [address] 52607- 6565 Jul, HTN (hypertension) I10 ; Depression F32.9 ; Degenerative disc disease at L5-S1 level M51.36 ; Benign nodular prostatic hyperplasia, presence of lower urinary tract symptoms unspecified N40.0 ; High risk medication use Z79.899 ; Controlled substance agreement signed Z79.899 ; Anxiety F41.9 ; Chronic hepatitis C without hepatic coma B18.2 and Injury of left knee, initial encounter S89.92XA [place] [address] [address]- 3128 Jul, [facility] [address] [address]- 1230 June, Degenerative disc disease at L5-S1 level M51.36 [place] [address] 63269- 4726 Mar, [place] [address] 72211- 7112 Mar, Controlled substance agreement signed Z79.899 and Degenerative disc disease at L5-S1 level M51.36 [place] [address] 10024- 5478 Mar, Controlled substance agreement signed Z79.899 [place] [address] 56306- 7416 Feb, [place] [address] 00893- 9202 Feb, Degenerative disc disease at L5-S1 level M51.36 [place] [address] 71565- 3123 Jan, HTN (hypertension) I10 ; Chronic pain G89.29 and Back pain at L4-L5 level M54.5 [place] [address] [place] [id number] [place] [address] 93356- 6193 Dec, Degenerative disc disease at L5-S1 level M51.36 [place] [address] 81236- 1692 Dec, Degenerative disc disease at L5-S1 level M51.36 and Depression F32.9 [place] [address] 26004- 4912 Oct, [place] [address] [place] [id number] [place] [address] 54342- 1308 Sep, Chronic viral hepatitis C B18.2 ; BPH (benign prostatic hyperplasia) N40.0 ; HTN (hypertension) I10 ; Panic disorder F41.0 ; Obsessive compulsive disorder F42 ; Constipation, unspecified constipation type K59.00 and Degenerative disc disease at L5-S1 level M51.36 [place] [address] 14000- 6505 Aug, Chronic pain G89.29 [place] [address] 15005- 5294 Aug, [place] [address] 74642- 6447 May, Chronic pain G89.29 and Anxiety F41.9 [place] [address] [place] [id number] [place] [address] 67314- 1599 Apr, Chronic pain G89.29 and Anxiety F41.9 [place] [address] [place] [id number] [place] [address] 80771- 7903 Apr, Chronic pain G89.29 [place] [address] [place] [id number] [place] [address] 56334- 3680 Mar, Anxiety F41.9 and Chronic pain G89.29 [place] [address] [id number] [place] [address] 39868- 7164 Feb, [place] [address] 01413- 0274 Feb, Depression F32.9 [place] [address] 99928- 7113 Feb, [place] [address] 07065- 6679 Feb, Chronic viral hepatitis C B18.2 ; ED (erectile dysfunction) N52.9 ; HTN (hypertension) I10 ; Depression F32.9 ; Constipation, unspecified constipation type K59.00 ; Chronic pain G89.29 ; Benign nodular prostatic hyperplasia, presence of lower urinary tract symptoms unspecified N40.0 ; Anxiety F41.9 and Screening cholesterol level Z13.220 [place] [address] [place] [id number] [place] [address] 36677- 2033 Feb, [facility] [id number] [place] [address] 48758- 2268 Feb, Chronic pain G89.29 [place] [address] 09782- 0238 Feb, Anxiety F41.9 ; Chronic pain G89.29 ; Obsessive compulsive disorder F42 and HTN (hypertension) I10 [place] [address] [address] [id number] [place] [address] 90006- 8903 Dec, [place] [address] 27600- 5207 Dec, [place] [address] [place] [id number] [place] [address] 50902- 7880 Dec, Anxiety F41.9 [place] [address] 13045- 1604 Nov, Chronic viral hepatitis C B18.2 ; Anxiety F41.9 ; HTN ( hypertension) I10 ; Panic disorder F41.0 ; BPH (benign prostatic hyperplasia) N40.0 ; ED (erectile dysfunction) N52.9 ; Obsessive compulsive disorder F42 ; Constipation, unspecified constipation type K59.00 and Chronic pain G89.29 [place] [address] [place] [id number] [place] [address] 82713- 1887 Nov, [place] [address] 65546- 0969 Nov, [facility] [address] [place] [id number] [place] [address] 99021- 2147 Oct, [place] [address] 89822- 3019 Aug, [facility] [id number] [place] [address] 01865- 6060 Jul, Chronic viral hepatitis C B18.2 ; BPH (benign prostatic hyperplasia) N40.0 ; ED (erectile dysfunction) N52.9 ; HTN (hypertension) I10 ; Panic disorder F41.0 ; Depression F32.9 ; Obsessive compulsive disorder F42 ; Apnea R06.81 ; Other chronic pain G89.29 and Dorsalgia, unspecified M54.9 [facility] [address] [id number] [place] [address] 55151- 2683 Jul, Chronic pain G89.29 and Anxiety F41.9 [place] [address] [place] [id number] [place] [address] 28101- 1608 June, Chronic pain G89.29 [place] [address] [place] [id number] [place] [address] 87563- 4965 June, Panic disorder F41.0 and Chronic pain G89.29 [facility] [address] [place] [place] [id number] [place] [address] 37122- 7704 May, [facility] [address] [place] [id number] [place] [address] 00868- 1148 May, [facility] [address] [place] [id number] [place] [address] 76565- 8327 May, [facility] [id number] [place] [address] 44654 -3945 Apr, Sinusitis J32.9 [facility] [address] [place] [place] [id number] [place] [address] 43026- 7979 18 Apr, 2015 [facility] [address] [place] [id number] [place] [address] 25998- 2880 15 Apr, 2015 [facility] [address] [id number] [place] [address] 21220- 2106 26 Mar, 2015 [facility] [address] [id number] [place] [address] 27817- 2324 Mar, Depression F32.9 ; Panic disorder F41.0 and Obsessive compulsive disorder F42 [place] [address] [address] [id number] [place] [address] 01901- 7803 Mar, [facility] [id number] [place] [address] 18290- 8666 Feb, [place] [address] [address] [id number] [place] [address] 67825- 8487 Feb, Anxiety F41.9 ; ED (erectile dysfunction) N52.9 ; HTN ( hypertension) I10 ; Panic disorder F41.0 ; Depression F32.9 ; Obsessive compulsive disorder F42 ; BPH (benign prostatic hyperplasia) N40.0 ; Degenerative joint disease of low back M47.9 and Vitamin D deficiency E55.9 [place] [address] [id number] [place] [address] 41059- 4096 Feb, [place] [address] [address] [id number] [place] [address] 75927- 2942 Dec, [place] [address] [address] [id number] [place] [address] 12005- 3078 Dec, [place] [address] [id number] [place] [address] 46494- 2953 Dec, [place] [address] [id number] [place] [address] 90407- 3145 Nov, Chronic viral hepatitis C B18.2 ; Anxiety F41.9 ; BPH ( benign prostatic hyperplasia) N40.0 ; ED (erectile dysfunction) N52.9 ; HTN ( hypertension) I10 ; Panic disorder F41.0 ; Depression F32.9 ; Obsessive compulsive disorder F42 ; Apnea R06.81 ; Chronic pain G89.29 and Vitamin D deficiency E55.9 [facility] [address] [id number] [place] [address] 32288- 4981 Nov, [place] [address] [place] [id number] [place] [address] 31642- 4188 Nov, [facility] [address] [address]- 9761 Nov, [facility] [address] [address]- 4991 Nov, [facility] [address], [place] [address]- 1177 Oct, [facility] [address] [place] [id number] [place] [address] 90660- 7138 Oct, [facility] [address], [place] [address]- 4208 Oct, [facility] [address] [place] [id number] [place] [address] 95852- 2683 Sep, [facility] [address] [id number], [place] [address]- 0311 Sep, [facility] [address], [place] [address]- 6029 Sep, [facility] [address] [address]- 1571 Sep, [facility] [address], [place] [address]- 8594 Aug, Essential hypertension, benign 401.1 ; Obsessive-compulsive disorders 300.3 ; Anxiety state, unspecified 300.00 ; Depressive disorder, not elsewhere classified 311 ; Lumbago 724.2 ; Hepatitis C 070.70 and BPH (benign prostatic hyperplasia) 600.00 [facility] [address], [place] [address]- 2784 Aug, [facility] [address] [id number], [place] [address]- 9296 Aug, [facility] [address] [id number] [address]- 1036 Jul, [facility] [address] [id number] [address]- 8408 June, [facility] [address] [facility] [id number] [place] [address]- 4962 30 May, 2014 Lumbago 724.2 ; Other chronic pain 338.29 and Dizziness 780.4 [facility] [address] [facility] [id number] [place] [address]- 3202 14 May, 2014 [facility] [id number] [place] [address]- 9301 May, [facility] [address] [facility] [id number] [place] [address]- 6734 Apr, [facility] [id number] [place] [address], [place] [address]- 3525 Apr, [facility] [id number] [place] [address]- 2159 Apr, [facility] [id number] [place] [address], [place] [address]- 7758 Apr, [facility] [id number] [place] [address]- 0822 Apr, [facility] [id number] [place] [address]- 0163 Apr, [facility] [address], [place] [address]- 9710 Mar, [facility] [id number] [place] [address]- 6599 Mar, [facility] [address] [facility] [id number], [place] [address]- 4918 Mar, [facility] [id number] [place] [address]- 1153 Mar, [facility] [address] [id number] 5676 Mar, [facility] [address], [place] [address]- 1556 Mar, 2014 [facility] [place] [facility] [address] [id number] [place] [address]- 2414 Mar, 2014 [facility] [place] [facility] [address] [id number] [place] [address]- 7868 Mar, [facility] [place] [facility] [address] [id number] [place] [address]- 0451 Feb, [facility] [place] [facility] [address] [id number] [place] [address]- 7162 Feb, [facility] [place] [facility] [address] [id number] [place] [address]- 1962 Jan, [facility] [place] [facility] [address] [id number] [place] [address]- 2927 Jan, [facility] [place] [facility] [address] [id number] [place] [address]- 6899 Jan, [facility] [place] [facility] [address] [id number] [place] [address]- 8591 Jan, [facility] [place] [facility] [address] [id number] [place] [address]- 2666 Nov, [facility] [place] [facility] [address] [id number] [place] [address]- 4466 31 Nov, 2013 [facility] [place] [facility] [address] [id number], [place] [address]- 0695 16 Nov, 2013 [facility] [place] [facility] [address] [id number], [place] [address]- 8105 16 Nov, 2013 [facility] [place] [facility] [address] [id number] [place] [address]- 2832 14 Nov, 2013 [facility] [place] [facility] [address] [id number] [place] [address]- 7571 Nov, [facility] [place] [facility] [address] [id number] [place] [address]- 3600 Nov, [facility] [place] [facility] [address] [id number] [place] [address]- 3715 Nov, [facility] [place] [facility] [address] [id number] [place] [address]- 6317 Nov, [facility] [place] [facility] [address] [id number] [place] [address]- 4755 Nov, [facility] [place] [facility] [address] [id number] [place] [address]- 6457 Nov, [facility] [place] [facility] [address] [id number] [place] [address]- 8764 Nov, [facility] [place] [facility] [address] [id number] [place] [address]- 4411 Oct, [facility] [place] [facility] [address] [id number] [place] [address]- 3204 Oct, 2013 [facility] [place] [facility] [address] [id number] [place] [address]- 5970 Oct, 2013 [facility] [place] [facility] [address] [id number] [place] [address]- 2473 12 Oct, 2013 [facility] [place] [facility] [address] [id number] [place] [address]- 4424 11 Oct, 2013 [facility] [place] [facility] [address] [id number] [place] [address]- 9962 11 Oct, 2013 [facility] [place] [facility] [address] [id number] [place] [address]- 2547 10 Oct, 2013 [facility] [place] [facility] [address] [id number] [place] [address]- 2541 10 Oct, 2013 [facility] [place] [facility] [address] [id number] [place] [address]- 2549 10 Oct, 2013 [facility] [place] [facility] [address] [id number] [place] [address]- 2549 10 Oct, 2013 [facility] [place] [facility] [address] [id number] [place] [address]- 3907 Oct, 2013 [facility] [place] [facility] [address] [id number] [place] [address]- 0778 03 Oct, 2013 [facility] [place] [facility] [address] [id number] [place] [address]- 2308 Oct, 2013 [facility] [place] [facility] [address] [id number] [place] [address]- 1234 Oct, 2013 [facility] [place] [facility] [address] [id number] [place] [address]- 9510 Oct, 2013 [facility] [place] [facility] [address] [id number] [place] [address]- 9501 Oct, 2013 [facility] [place] [facility] [address] [id number] [place] [address]- 8849 Oct, 2013 [facility] [place] [facility] [address] [id number] [place] [address]- 0464 Oct, 2013 [facility] [place] [facility] [address] [id number] [place] [address]- 0641 Sep, [facility] [place] [facility] [address] [id number] [place] [address]- 8911 Sep, [facility] [place] [facility] [address] [id number] [place] [address]- 8590 Sep, [facility] [place] [facility] [address] [id number] [place] [address]- 1245 Sep, [facility] [place] [facility] [address] [id number], [place] [address]- 7960 Sep, [facility] [place] [facility] [address] [id number] [place] [address]- 9146 Sep, [facility] [place] [facility] [address] [id number] [place] [address]- 8935 Sep, [facility] [place] [facility] [address] [id number] [place] [address]- 1037 Sep, [facility] [place] [facility] [address] [id number], [place] [address]- 2595 Sep, [facility] [place] [facility] [address] [id number] [place] [address]- 9373 Sep, [facility] [place] [facility] [address] [id number] [place] [address]- 6323 Aug, [facility] [place] [facility] [address] [id number] [place] [address]- 7067 Aug, [facility] [place] [facility] [address] [id number] [place] [address]- 1444 Aug, [facility] [place] [facility] [address] [id number] [place] [address]- 5662 Aug, [facility] [place] [facility] [address] [id number] [place] [address]- 2645 Aug, [facility] [place] [facility] [address] [id number] [place] [address]- 1524 Aug, [facility] [place] [facility] [address] [id number] [place] [address]- 4398 Aug, [facility] [place] [facility] [address] [id number] [place] [address]- 6929 Aug, [facility] [place] [facility] [address] [id number] [place] [address]- 0401 Aug, [facility] [place] [facility] [address] [id number] [place] [address]- 6415 Aug, [facility] [place] [facility] [address] [id number] [place] [address]- 6596 Aug, [facility] [place] [facility] [address] [id number] [place] [address]- 1576 Aug, [facility] [place] [facility] [address] [id number] [place] [address]- 8670 Aug, [facility] [place] [facility] [address] [id number] [place] [address]- 9134 Jul, [facility] [place] [facility] [address] [id number] [place] [address]- 1846 Jul, [facility] [place] [facility] [address] [id number] [place] [address]- 7958 Jul, [facility] [place] [facility] [address] [id number] [place] [address]- 0315 Jul, [facility] [place] [facility] [address] [id number] [place] [address]- 0964 Jul, [facility] [place] [facility] [address] [id number] [place] [address]- 6756 Jul, [facility] [place] [facility] [address] [id number] [place] [address]- 3964 Jul, [facility] [place] [facility] [address] [id number] [place] [address]- 0632 Jul, [facility] [place] [facility] [address] [id number] [place] [address]- 9690 Jul, [facility] [place] [facility] [address] [id number] [place] [address]- 0254 Jul, [facility] [place] [facility] [address] [id number] [place] [address]- 2336 Jul, [facility] [place] [facility] [address] [id number] [place] [address]- 6885 June, [facility] [place] [facility] [address] [id number] [place] [address]- 3986 June, [facility] [place] [facility] [address] [id number] [place] [address]- 5826 June, [facility] [place] [facility] [address] [id number] [place] [address]- 5782 June, [facility] [place] [facility] [address] [id number] [place] [address]- 6828 June, [facility] [place] [facility] [address] [id number] [place] [address]- 6472 16 May, 2013 [facility] [place] [facility] [address] [id number] [place] [address] 16 May, 2013 [facility] [place] [facility] [address] [id number] [place] [address] 15 May, 2013 [facility] [place] [facility] [address] [id number] [place] [address] May, [facility] [place] [facility] [address] [id number] [place] [address] Apr, [facility] [place] [facility] [address] [id number] [place] [address] Apr, [facility] [place] [facility] [address] [id number] [place] [address] Apr, [facility] [place] [facility] [address] [id number] [place] [address] Apr, [facility] [place] [facility] [address] [id number] [place] [address] Apr, [facility] [place] [facility] [address] [id number] [place] [address] Apr, [facility] [place] [facility] [address] [id number] [place] [address] Apr, [facility] [place] [facility] [address] [id number] [place] [address]687 Apr, [facility] [place] [facility] [address] [id number] [place] [address] Mar, [facility] [place] [facility] [address] [id number] [place] [address] Mar, [facility] [place] [facility] [address] [id number] [place] [address] Mar, [facility] [place] [facility] [address] [id number] [place] [address] Mar, [facility] [place] [facility] [address] [id number] [place] [address] Feb, [facility] [address] [id number] [place] [address] Feb, [facility] [address] [id number] [place] [address]- [address] Feb, [facility] [address] [id number] [place] [address] Feb, [facility] [address] [id number] [place] [address] Jan, [facility] [address] [id number] [place] [address] Jan, [facility] [address] [id number] [place] [address] Jan, [facility] [address] [id number] [place] [address] Jan, [facility] [address] [id number] [place] [address] Jan, [facility] [address] [id number] [place] [address] Dec, [facility] [address] [id number] [place] [address] Dec, [facility] [address] [id number] [place] [address] Dec, [facility] [address] [id number] [place] [address] Dec, [facility] [place] [facility] [address] [id number] [place] [address] Dec, [facility] [place] [facility] [address] [id number] [place] [address] Dec, [facility] [address] [id number] [place] [address] Dec, [facility] [place] [facility] [address] [id number] [place] [address] Dec, [facility] [place] [facility] [address] [id number] [place] [address] Nov, [facility] [place] [facility] [address] [id number] [place] [address] Nov, [facility] [place] [facility] [address] [id number] [place] [address] Nov, [facility] [place] [facility] [address] [id number] [place] [address] Nov, [facility] [place] [facility] [address] [id number] [place] [address]- [address] Nov, [facility] [place] [facility] [address] [id number] [place] [address] Nov, [facility] [place] [facility] [address] [id number] [place] [address] 30 Oct, 2012 [facility] [place] [facility] [address] [id number] [place] [address] Oct, [facility] [place] [facility] [address] [id number], [place] [address] Oct, [facility] [place] [facility] [address] [id number], [place] [address] Oct, [facility] [place] [facility] [address] [id number], [place] [address] Sep, [facility] [place] [facility] [address] [id number] [place] [address] Sep, [facility] [place] [facility] [address] [id number], [place] [address] Sep, [facility] [place] [facility] [address] [id number], [place] [address] Aug, [facility] [address] [id number] [address] Aug, [facility] [id number] [address] Jul, [facility] [id number] [address] Jul, [facility] [id number] [address] June, [facility] [id number] [address] June, [facility] [id number] [address] June, [facility] [address] [id number] [address] May, [facility] [id number] [place] [address] Mar, [facility] [id number], [place] [address] Mar, [facility] [id number], [place] [address] Mar, [facility] [id number], [place] [address] Mar, IMMUNIZATIONS No Known Immunizations SOCIAL HISTORY Never Assessed REASON FOR VISIT Controlled Med Refill PLAN OF CARE VITAL SIGNS MEDICATIONS Medication Instructions Dosage Frequency Start Date End Date Duration Status Hydrocodone-Acetaminophen 10-325 MG Orally every 6 hrs 1 tablet as needed 6h Mar, 28 days Active RESULTS No Results PROCEDURES [...]
--- OUTSIDE RECORDS SUMMARY | 2017-11-12 21:46 | XMS REPORT ---
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 Name Role Phone HAYLEY ARIAS Unavailable PROBLEMS Type Condition ICD9-CM Code BAB41-SP Code Onset Dates Condition Status SNOMED Code Problem Obsessive compulsive disorder F42 Active 100135668 Problem Panic disorder F41.0 Active 802215576 Problem BPH (benign prostatic hyperplasia) N40.0 Active 180646492 Problem Chronic hepatitis C without hepatic coma B18.2 Active 152559409 Problem Back pain at L4-L5 level M54.5 Active 785058451 Problem Constipation, unspecified constipation type K59.00 Active 04004450 Problem Chronic pain G89.29 Active 65137952 Problem Degenerative disc disease at L5-S1 level M51.36 Active 52935868 Problem Benign nodular prostatic hyperplasia, presence of lower urinary tract symptoms unspecified N40.0 Active 877196633 Problem Other obsessive-compulsive disorder F42.8 Active 809005954 Problem HTN (hypertension) I10 Active 84257787 Problem Depression F32.9 Active 22193316 Problem Apnea R06.81 Active 9560304 Problem Anxiety F41.9 Active 28061105 Problem ED (erectile dysfunction) N52.9 Active 477383966 Problem Chronic viral hepatitis C B18.2 Active 902954285 ALLERGIES No Information ENCOUNTERS Encounter Location Date Diagnosis [facility] [address] [facility] [id number] [address] Jul, HTN (hypertension) I10 ; Depression F32.9 ; Degenerative disc disease at L5-S1 level M51.36 ; Benign nodular prostatic hyperplasia, presence of lower urinary tract symptoms unspecified N40.0 ; High risk medication use Z79.899 ; Controlled substance agreement signed Z79.899 ; Anxiety F41.9 ; Chronic hepatitis C without hepatic coma B18.2 and Injury of left knee, initial encounter S89.92XA [facility] [id number] [place] [address] 78982- 8612 Jul, [facility] [address] [address] June, Degenerative disc disease at L5-S1 level M51.36 [facility] [id number] [place] [address] 48969- 7328 Mar, [facility] [address] [address]- [address] Mar, Controlled substance agreement signed Z79.899 and Degenerative disc disease at L5-S1 level M51.36 [place] [address] [address]- 1744 Mar, Controlled substance agreement signed Z79.899 [place] [address] 06[address]- 0311 Feb, [facility] [id number] [place] [address] 74929- 4183 Feb, Degenerative disc disease at L5-S1 level M51.36 [place] [address] [address]398- 2818 Jan, HTN (hypertension) I10 ; Chronic pain G89.29 and Back pain at L4-L5 level M54.5 [place] [address] 27913- 8811 Dec, Degenerative disc disease at L5-S1 level M51.36 [place] [id number] [place] [address] 35241- 7776 Dec, Degenerative disc disease at L5-S1 level M51.36 and Depression F32.9 [place] [id number] [place] [address] 56708- 8797 Oct, [facility] [id number] [place] [address] 74282- 0657 Sep, Chronic viral hepatitis C B18.2 ; BPH (benign prostatic hyperplasia) N40.0 ; HTN (hypertension) I10 ; Panic disorder F41.0 ; Obsessive compulsive disorder F42 ; Constipation, unspecified constipation type K59.00 and Degenerative disc disease at L5-S1 level M51.36 [place] [id number] [place] [address] 18113- 8810 Aug, Chronic pain G89.29 [place] [address] 25887- 7319 Aug, [place] [address] 84334- 1919 May, Chronic pain G89.29 and Anxiety F41.[address] [address]- 6034 Apr, Chronic pain G89.29 and Anxiety F41.[address] 00497- 4844 Apr, Chronic pain G89.29 [place] [address] 05413- 9663 Mar, Anxiety F41.9 and Chronic pain G89.29 [place] [id number] [place] [address] 14844- 8713 Feb, [place] [id number] [place] [address] 21088- 4475 Feb, Depression F32.9 [place] [id number] [place] [address] 99166- 8419 Feb, [address] 03014- 3648 Feb, Chronic viral hepatitis C B18.2 ; ED (erectile dysfunction) N52.9 ; HTN (hypertension) I10 ; Depression F32.9 ; Constipation, unspecified constipation type K59.00 ; Chronic pain G89.29 ; Benign nodular prostatic hyperplasia, presence of lower urinary tract symptoms unspecified N40.0 ; Anxiety F41.9 and Screening cholesterol level Z13.220 [facility] [id number] [place] [address] 14865- 6063 Feb, [facility] [id number] [place] [address] 07799- 9996 Feb, Chronic pain G89.29 [facility] [id number] [place] [address] 87624- 6449 Feb, Anxiety F41.9 ; Chronic pain G89.29 ; Obsessive compulsive disorder F42 and HTN (hypertension) I10 [place] [id number] [place] [address] 39903- 4950 Dec, [place] [id number] [place] [address] 33607- 1081 Dec, [place] [id number] [place] [address] 71690- 8598 Dec, Anxiety F41.9 [facility] [id number] [place] [address] 64638- 0981 Nov, Chronic viral hepatitis C B18.2 ; Anxiety F41.9 ; HTN ( hypertension) I10 ; Panic disorder F41.0 ; BPH (benign prostatic hyperplasia) N40.0 ; ED (erectile dysfunction) N52.9 ; Obsessive compulsive disorder F42 ; Constipation, unspecified constipation type K59.00 and Chronic pain G89.29 [facility] [id number] [place] [address] 92477- 8342 Nov, [facility] [id number] [place] [address] 56577- 5639 Nov, [facility] [id number] [place] [address] 09737- 8981 Oct, [facility] [id number] [place] [address] 29772- 0242 Aug, [facility] [id number] [place] [address] 07253- 5646 Jul, Chronic viral hepatitis C B18.2 ; BPH (benign prostatic hyperplasia) N40.0 ; ED (erectile dysfunction) N52.9 ; HTN (hypertension) I10 ; Panic disorder F41.0 ; Depression F32.9 ; Obsessive compulsive disorder F42 ; Apnea R06.81 ; Other chronic pain G89.29 and Dorsalgia, unspecified M54.9 [facility] [id number] [place] [address] 09772- 1593 08 Jul, 2015 Chronic pain G89.29 and Anxiety F41.9 [facility] [address] 39824- 6866 June, Chronic pain G89.29 [place] [address] 63770- 9394 June, Panic disorder F41.0 and Chronic pain G89.29 [facility] [address] 58634- 7060 May, [facility] [id number] [place] [address] 20468- 9884 May, [facility] [id number] [place] [address] 22803- 1824 May, [facility] [id number] [place] [address] 88360 -2633 Apr, Sinusitis J32.9 [facility] [id number] [place] [address] 74138- 4253 18 Apr, 2015 [facility] [id number] [place] [address] 87583- 5679 Apr, [facility] [address] 50450- 8939 Mar, [facility] [id number] [place] [address] 84731- 0624 Mar, Depression F32.9 ; Panic disorder F41.0 and Obsessive compulsive disorder F42 [facility] [id number] [address]- 8999 08 Mar, 2015 [facility] [id number] [place] [address] 59665- 4953 Feb, [facility] [id number] [place] [address] 07663- 4256 Feb, Anxiety F41.9 ; ED (erectile dysfunction) N52.9 ; HTN ( hypertension) I10 ; Panic disorder F41.0 ; Depression F32.9 ; Obsessive compulsive disorder F42 ; BPH (benign prostatic hyperplasia) N40.0 ; Degenerative joint disease of low back M47.9 and Vitamin D deficiency E55.9 [place] [id number] [place] [address] 02591- 4123 Feb, [place] [id number] [place] [address] 56449- 3092 Dec, [place] [id number] [place] [address] 91620- 5818 Dec, [facility] [id number] [place] [address] 39645- 5246 Dec, [place] [id number] [place] [address] 90875- 1736 Nov, Chronic viral hepatitis C B18.2 ; Anxiety F41.9 ; BPH ( benign prostatic hyperplasia) N40.0 ; ED (erectile dysfunction) N52.9 ; HTN ( hypertension) I10 ; Panic disorder F41.0 ; Depression F32.9 ; Obsessive compulsive disorder F42 ; Apnea R06.81 ; Chronic pain G89.29 and Vitamin D deficiency E55.9 [place] [id number] [place] [address] 74207- 3890 Nov, [facility] [id number] [place] [address] 27010- 0364 Nov, [facility] [id number] [place] [address] 40423- 3387 Nov, [facility] [address] [address]- 7128 Nov, [facility] [id number] [address]- 5631 Oct, [facility] [address] [address]- 6016 Oct, [facility] [id number] [place] [address] 85986- 5661 Oct, [facility] [id number] [place] [address] 57727- 4305 Sep, [facility] [id number] [place] [address], [place] [address]- 6971 Sep, [facility] [id number] [place] [address] 94975- 2222 Sep, [facility] [address] [address]- 4289 Sep, [facility] [id number] [address]- 6314 Aug, Essential hypertension, benign 401.1 ; Obsessive-compulsive disorders 300.3 ; Anxiety state, unspecified 300.00 ; Depressive disorder, not elsewhere classified 311 ; Lumbago 724.2 ; Hepatitis C 070.70 and BPH (benign prostatic hyperplasia) 600.00 [facility] [id number] [address]- 5156 Aug, [facility] [id number] [address]- 0496 Aug, [facility] [id number] [address]- 9740 Jul, [facility] [address] [address]- 6116 June, [facility] [address] [address]- 1626 May, Lumbago 724.2 ; Other chronic pain 338.29 and Dizziness 780.4 [facility] [id number] [place] [address]- 1480 14 May, 2014 [facility] [id number] [place] [address]- 1390 May, [facility] [id number] [place] [address] 35744- 3735 Apr, [facility] [id number] [place] [address], [place] [address]- 1979 Apr, [facility] [id number] [place] [address], [place] [address]- 9669 Apr, [facility] [id number] [place] [address] 82386- 1213 Apr, [facility] [id number] [place] [address] 41177- 0798 Apr, [facility] [id number] [address]- 3782 Apr, [facility] [id number] [address]- 6667 Mar, [facility] [address] [address]- 4926 Mar, [facility] [address] [address]- 0279 Mar, [facility] [address] [address]- 1898 Mar, [facility] [address] [address]- 4189 Mar, [facility] [address] [address]- 3272 Mar, [facility] [address] [address]- 5366 Mar, 2014 [facility] [place] [facility] [address] [id number] [place] [address]- 8586 Mar, [facility] [place] [facility] [address] [id number] [place] 6850 Feb, [facility] [place] [facility] [address] [id number] [place] [address]- 0684 Feb, [facility] [place] [facility] [address] [id number] [place] [address]- 7011 Jan, [facility] [place] [facility] [address] [id number] [place] [address]- 9102 Jan, [facility] [place] [facility] [address] [id number] [place] [address]- 9006 Jan, [facility] [place] [facility] [address] [id number] [place] [address]- 4412 Jan, [facility] [place] [facility] [address] [id number] [place] [address]- 3446 Nov, [facility] [place] [facility] [address] [id number] [place] [address]- 7840 Nov, [facility] [place] [facility] [address] [id number] [place] [address]- 5008 Nov, [facility] [place] [facility] [address] [id number] [address]- 8805 Nov, [facility] [place] [facility] [address] [id number], [place] [address]- 8162 Nov, [facility] [place] [facility] [address] [id number] [place] [address]- 1975 Nov, [facility] [place] [facility] [address] [id number], [place] [address]- 7231 Nov, [facility] [place] [facility] [address] [id number] [place] [address]- 8784 Nov, [facility] [place] [facility] [address] [id number] [place] [address]- 9729 Nov, [facility] [place] [facility] [address] [id number] [place] [address]- 4226 Nov, [facility] [place] [facility] [address] [id number] [place] [address]- 9087 Nov, [facility] [place] [facility] [address] [id number] [place] [address]- 7083 Nov, [facility] [place] [facility] [address] [id number] [place] [address]- 5575 Oct, 2013 [facility] [place] [facility] [address] [id number] [place] [address]- 5495 Oct, 2013 [facility] [place] [facility] [address] [id number] [place] [address]- 9567 Oct, 2013 [facility] [place] [facility] [address] [id number] [place] [address]- 9124 12 Oct, 2013 [facility] [place] [facility] [address] [id number] [place] [address]- 3353 11 Oct, 2013 [facility] [place] [facility] [address] [id number] [place] [address]- 4249 11 Oct, 2013 [facility] [place] [facility] [address] [id number] [place] [address]- 3533 10 Oct, 2013 [facility] [place] [facility] [address] [id number] [place] [address]- 2541 10 Oct, 2013 [facility] [place] [facility] [address] [id number] [place] [address]- 2548 10 Oct, 2013 [facility] [place] [facility] [address] [id number] [place] [address]- 2545 10 Oct, 2013 [facility] [place] [facility] [address] [id number] [place] [address]- 2545 03 Oct, 2013 [facility] [place] [facility] [address] [id number] [place] 6572 Oct, 2013 [facility] [place] [facility] [address] [id number] [place] [address]- 3934 Oct, 2013 [facility] [place] [facility] [address] [id number] [place] [address]- 4019 Oct, 2013 [facility] [place] [facility] [address] [id number] [place] [address]- 6970 Oct, 2013 [facility] [place] [facility] [address] [id number] [place] [address]- 5338 Oct, 2013 [facility] [place] [facility] [address] [id number] [place] [address]- 1095 Oct, 2013 [facility] [place] [facility] [address] [id number] [place] [address]- 0727 Oct, [facility] [place] [facility] [address] [id number] [place] [address]- 3927 Sep, [facility] [place] [facility] [address] [id number] [place] [address]- 2503 Sep, [facility] [place] [facility] [address] [id number] [place] [address]- 3944 Sep, [facility] [place] [facility] [address] [id number] [place] [address]- 1372 Sep, [facility] [place] [facility] [address] [id number], [place] [address]- 7136 Sep, [facility] [place] [facility] [address] [id number], [place] [address]- 8802 Sep, [facility] [place] [facility] [address] [id number] [place] [address]- 3544 Sep, [facility] [place] [facility] [address] [id number] [place] [address]- 9310 Sep, [facility] [place] [facility] [address] [id number] [place] [address]- 8670 Sep, [facility] [place] [facility] [address] [id number], [place] [address]- 4535 Sep, [facility] [place] [facility] [address] [id number] [place] [address]- 9237 Aug, [facility] [place] [facility] [address] [id number] [place] [address]- 5447 Aug, [facility] [place] [facility] [address] [id number] [place] [address]- 1832 Aug, [facility] [place] [facility] [address] [id number] [place] [address]- 8577 Aug, [facility] [place] [facility] [address] [id number] [place] [address]- 1341 Aug, [facility] [place] [facility] [address] [id number] [place] [address]- 3159 Aug, [facility] [place] [facility] [address] [id number] [place] [address]- 1649 Aug, [facility] [place] [facility] [address] [id number] [place] [address]- 7916 Aug, [facility] [place] [facility] [address] [id number] [place] [address]- 5131 Aug, [facility] [place] [facility] [address] [id number] [place] [address]- 5443 Aug, [facility] [place] [facility] [address] [id number] [place] [address]- 1377 Aug, [facility] [place] [facility] [address] [id number] [place] [address]- 9622 Aug, [facility] [place] [facility] [address] [id number] [place] [address]- 7652 Aug, [facility] [place] [facility] [address] [id number] [place] [address]- 6068 Jul, [facility] [place] [facility] [address] [id number] [place] [address]- 8596 Jul, [facility] [place] [facility] [address] [id number] [place] [address]- 1972 05 Jul, 2013 [facility] [place] [facility] [address] [id number] [place] [address]- 8149 Jul, [facility] [place] [facility] [address] [id number] [place] [address]- 6655 Jul, [facility] [place] [facility] [address] [id number] [place] [address]- 7081 Jul, [facility] [place] [facility] [address] [id number] [place] [address]- 2947 Jul, [facility] [place] [facility] [address] [id number] [place] [address]- 9580 Jul, [facility] [place] [facility] [address] [id number] [place] [address]- 2159 Jul, [facility] [place] [facility] [address] [id number] [place] [address]- 8689 Jul, [facility] [place] [facility] [address] [id number] [place] [address]- 9829 Jul, [facility] [place] [facility] [address] [id number] [place] [address]- 5832 June, [facility] [place] [facility] [address] [id number] [place] [address]- 1490 June, [facility] [place] [facility] [address] [id number] [place] [address]- 1692 June, [facility] [place] [facility] [address] [id number] [place] [address]- 3100 June, [facility] [place] [facility] [address] [id number] [place] [address] June, [facility] [place] [facility] [address] [id number] [place] [address] May, [facility] [place] [facility] [address] [id number] [place] [address] 16 May, 2013 [facility] [place] [facility] [address] [id number] [place] [address] May, [facility] [place] [facility] [address] [id number] [place] [address] May, [facility] [place] [facility] [address] [id number] [place] [address] Apr, [facility] [place] [facility] [address] [id number] [place] [address] Apr, [facility] [place] [facility] [address] [id number] [place] [address] Apr, [facility] [place] [facility] [address] [id number] [place] [address] Apr, [facility] [place] [facility] [address] [id number] [place] [address]- [address] Apr, [facility] [place] [facility] [address] [id number] [place] [address] Apr, [facility] [place] [facility] [address] [id number] [place] [address] Apr, [facility] [place] [facility] [address] [id number] [place] [address] Apr, [facility] [place] [facility] [address] [id number] [place] [address] Mar, [facility] [place] [facility] [address] [id number] [place] [address] Mar, [facility] [place] [facility] [address] [id number] [place] [address] Mar, [facility] [place] [facility] [address] [id number] [place] [address] Mar, [facility] [place] [facility] [address] [id number] [place] [address] Feb, [facility] [place] [facility] [address] [id number] [place] [address] Feb, [facility] [address] [id number] [place] [address] Feb, [facility] [address] [id number] [place] [address] Feb, [facility] [address] [id number] [place] [address] Jan, [facility] [address] [id number] [place] [address] Jan, [facility] [address] [id number] [place] [address] Jan, [facility] [address] [id number] [place] [address] Jan, [facility] [address] [id number] [place] [address] Jan, [facility] [address] [id number] [place] [address] Dec, [facility] [address] [id number] [place] [address] Dec, [facility] [address] [id number] [place] [address] Dec, [facility] [place] [facility] [address] [id number] [place] [address] Dec, [facility] [address] [id number] [place] [address] Dec, [facility] [place] [facility] [address] [id number] [place] [address] Dec, [facility] [place] [facility] [address] [id number] [place] [address] Dec, [facility] [address] [id number] [place] [address] Dec, [facility] [place] [facility] [address] [id number] [place] [address] Nov, [facility] [place] [facility] [address] [id number] [place] [address] Nov, [facility] [place] [facility] [address] [id number] [id number] [address] Nov, [facility] [place] [facility] [address] [id number] [place] [address] Nov, [facility] [place] [facility] [address] [id number] [place] [address] Nov, [facility] [place] [facility] [address] [id number] [place] [address]- [address] Nov, [facility] [place] [facility] [address] [id number] [place] [address] 30 Oct, 2012 [facility] [place] [facility] [address] [id number] [place] [address] Oct, [facility] [place] [facility] [address] [id number] [place] [address] Oct, [facility] [place] [facility] [address] [id number], [place] [address] Oct, [facility] [place] [facility] [address] [id number], [place] [address] Sep, [facility] [place] [facility] [address] [id number], [place] [address] Sep, [facility] [place] [facility] [address] [id number] [place] [id number] Sep, [facility] [address] [id number], [place] [address] Aug, [facility] [address] [id number], [place] [address] Aug, [facility] [address] [id number], [place] [address] Jul, [facility] [id number] [address] Jul, [facility] [id number] [address] June, [facility] [id number] [address] June, [facility] [id number] [address] June, [facility] [id number] [place] [address] May, [facility] [id number] [address] Mar, [facility] [id number] [address] Mar, [facility] [id number] [address] Mar, [facility] [id number], [place] [address] Mar, IMMUNIZATIONS No Known Immunizations SOCIAL HISTORY Never Assessed REASON FOR VISIT Refill request PLAN OF CARE VITAL SIGNS MEDICATIONS Medication Instructions Dosage Frequency Start Date End Date Duration Status Gabapentin 800 MG Orally Twice a day 1 tablet 12h Feb, 30 days Active RESULTS No Results PROCEDURES No [...]
--- OUTSIDE RECORDS SUMMARY | 2017-11-12 21:47 | XMS REPORT ---
Author Author JUANA HAYLEY Organization [facility] Address [address] [place] [address] Care Team Providers Care Trestleman Name Role Phone ARIASHAYLEY Dejesus Unavailable PROBLEMS Type Condition ICD9-CM Code HKH99-JD Code Onset Dates Condition Status SNOMED Code Problem Chronic viral hepatitis C B18.2 Active 940682953 Problem BPH (benign prostatic hyperplasia) N40.0 Active 034811595 Problem Obsessive compulsive disorder F42 Active 058736684 Problem Back pain at L4-L5 level M54.5 Active 117601839 Problem Degenerative disc disease at L5-S1 level M51.36 Active 01884538 Problem Chronic pain G89.29 Active 21446537 Problem Panic disorder F41.0 Active 662334770 Problem Benign nodular prostatic hyperplasia, presence of lower urinary tract symptoms unspecified N40.0 Active 847556614 Problem Constipation, unspecified constipation type K59.00 Active 00577495 Problem ED (erectile dysfunction) N52.9 Active 408167571 Problem HTN (hypertension) I10 Active 91156830 Problem Other obsessive-compulsive disorder F42.8 Active 453213101 Problem Depression F32.9 Active 17851906 Problem Apnea R06.81 Active 2977423 Problem Anxiety F41.9 Active 51801893 ALLERGIES Substance Reaction Event Type Date Status Codeine Sulfate itching Drug Allergy Jan, Active ENCOUNTERS Encounter Location Date Diagnosis [facility] [id number] [address] Jul, [facility] [id number] [place] [address] 53661- 4403 June, Degenerative disc disease at L5-S1 level M51.36 [facility] [id number] [address] Mar, [facility] [id number] [place] [address] 25665- 2382 Mar, Controlled substance agreement signed Z79.899 and Degenerative disc disease at L5-S1 level M51.36 [facility] [id number] [place] [address] 16899- 5623 Mar, Controlled substance agreement signed Z79.899 [facility] [id number] [place] [address] 42865- 1045 Feb, [facility] [id number] [place] [address] 20900- 7339 Feb, Degenerative disc disease at L5-S1 level M51.36 [facility] [id number] [place] [address] 64340- 0645 Jan, HTN (hypertension) I10 ; Chronic pain G89.29 and Back pain at L4-L5 level M54.5 [facility] [id number] [place] [address] 02904- 8949 Dec, Degenerative disc disease at L5-S1 level M51.36 [facility] [id number] [place] [address] 36553- 1019 Dec, Degenerative disc disease at L5-S1 level M51.36 and Depression F32.9 [facility] [id number] [place] [address] 83172- 6986 Oct, [facility] [id number] [place] [address] 83599- 8165 Sep, Chronic viral hepatitis C B18.2 ; BPH (benign prostatic hyperplasia) N40.0 ; HTN (hypertension) I10 ; Panic disorder F41.0 ; Obsessive compulsive disorder F42 ; Constipation, unspecified constipation type K59.00 and Degenerative disc disease at L5-S1 level M51.36 [facility] [id number] [place] [address] 51574- 4304 Aug, Chronic pain G89.29 [facility] [id number] [place] [address] 62065- 3699 Aug, [facility] [id number] [place] [address] 27258- 0035 May, Chronic pain G89.29 and Anxiety F41.9 [facility] [id number] [place] [address] 62199- 9339 Apr, Chronic pain G89.29 and Anxiety F41.9 [facility] [id number] [place] [address] 47083- 3009 Apr, Chronic pain G89.29 [facility] [id number] [place] [address] 66659- 2895 Mar, Anxiety F41.9 and Chronic pain G89.29 [facility] [id number] [place] [address] 23349- 6380 Feb, [facility] [id number] [place] [address] 71185- 2485 Feb, Depression F32.9 [facility] [id number] [place] [address] 90761- 7013 Feb, [facility] [id number] [place] [address] 37509- 1670 Feb, Chronic viral hepatitis C B18.2 ; ED (erectile dysfunction) N52.9 ; HTN (hypertension) I10 ; Depression F32.9 ; Constipation, unspecified constipation type K59.00 ; Chronic pain G89.29 ; Benign nodular prostatic hyperplasia, presence of lower urinary tract symptoms unspecified N40.0 ; Anxiety F41.9 and Screening cholesterol level Z13.220 [facility] [id number] [place] [address] 78231- 6996 Feb, [facility] [id number] [place] [address] 62294- 6219 Feb, Chronic pain G89.29 [facility] [id number] [place] [address] 54830- 6483 Feb, Anxiety F41.9 ; Chronic pain G89.29 ; Obsessive compulsive disorder F42 and HTN (hypertension) I10 [facility] [id number] [place] [address] 15798- 7410 Dec, [facility] [id number] [place] [address] 49187- 9275 Dec, [facility] [id number] [place] [address] 55112- 0067 Dec, Anxiety F41.9 [facility] [id number] [place] [address] 17707- 5236 Nov, Chronic viral hepatitis C B18.2 ; Anxiety F41.9 ; HTN ( hypertension) I10 ; Panic disorder F41.0 ; BPH (benign prostatic hyperplasia) N40.0 ; ED (erectile dysfunction) N52.9 ; Obsessive compulsive disorder F42 ; Constipation, unspecified constipation type K59.00 and Chronic pain G89.29 [facility] [id number] [place] [address] 96378- 8580 Nov, [facility] [id number] [place] [address] 11577- 9953 Nov, [facility] [id number] [place] [address] 41619- 4931 Oct, [facility] [id number] [place] [address] 26966- 6755 Aug, [facility] [id number] [place] [address] 83405- 2062 Jul, Chronic viral hepatitis C B18.2 ; BPH (benign prostatic hyperplasia) N40.0 ; ED (erectile dysfunction) N52.9 ; HTN (hypertension) I10 ; Panic disorder F41.0 ; Depression F32.9 ; Obsessive compulsive disorder F42 ; Apnea R06.81 ; Other chronic pain G89.29 and Dorsalgia, unspecified M54.9 [facility] [id number] [place] [address] 78964- 7779 Jul, Chronic pain G89.29 and Anxiety F41.9 [facility] [id number] [address]- 5626 20 Jun, 2015 Chronic pain G89.29 [facility] [id number] [place] [address] 63786- 7097 10 Jun, 2015 Panic disorder F41.0 and Chronic pain G89.29 [facility] [id number] [place] [address] 18424- 7152 14 May, 2015 [facility] [id number] [place] [address] 30706- 0033 14 May, 2015 [facility] [id number] [place] [address] 71143- 4227 May, [facility] [id number] [place] [address] 36609 -1112 Apr, Sinusitis J32.9 [facility] [id number] [place] [address] 44745- 7242 18 Apr, 2015 [facility] [id number] [place] [address] 47311- 6324 Apr, [facility] [id number] [place] [address] 50223- 7402 Mar, [facility] [id number] [place] [address] 08578- 1112 Mar, Depression F32.9 ; Panic disorder F41.0 and Obsessive compulsive disorder F42 [facility] [address] [address]- 6059 Mar, [facility] [id number] [place] [address] 57978- 6359 Feb, [facility] [id number] [place] [address] 50270- 2200 Feb, Anxiety F41.9 ; ED (erectile dysfunction) N52.9 ; HTN ( hypertension) I10 ; Panic disorder F41.0 ; Depression F32.9 ; Obsessive compulsive disorder F42 ; BPH (benign prostatic hyperplasia) N40.0 ; Degenerative joint disease of low back M47.9 and Vitamin D deficiency E55.9 [facility] [id number] [place] [address] 31285- 7060 Feb, [facility] [id number] [place] [address] 65758- 0082 Dec, [facility] [address] 73682- 3379 Dec, [facility] [address] 79738- 9329 Dec, [facility] [address] 53784- 4555 Nov, Chronic viral hepatitis C B18.2 ; Anxiety F41.9 ; BPH ( benign prostatic hyperplasia) N40.0 ; ED (erectile dysfunction) N52.9 ; HTN ( hypertension) I10 ; Panic disorder F41.0 ; Depression F32.9 ; Obsessive compulsive disorder F42 ; Apnea R06.81 ; Chronic pain G89.29 and Vitamin D deficiency E55.9 [facility] [id number] [place] [address] 88407- 9893 Nov, [facility] [id number] [place] [address] 42254- 8698 Nov, [facility] [id number] [place] [address] 50056- 2812 Nov, [facility] [id number] [place] [address] 86685- 9024 Nov, [facility] [address] 60875- 5284 14 Oct, 2014 [facility] [id number] [place] [address] 50448- 6900 09 Oct, 2014 [facility] [address] 21407- 6095 Oct, [facility] [address] [address]- 2789 Sep, [facility] [id number] [place] [address] 68754- 7545 Sep, [facility] [id number] [place] [address] 13223- 4399 Sep, [facility] [id number] [place] [address] 86291- 5709 Sep, [facility] [id number] [place] [address] 63884- 2825 Aug, Essential hypertension, benign 401.1 ; Obsessive-compulsive disorders 300.3 ; Anxiety state, unspecified 300.00 ; Depressive disorder, not elsewhere classified 311 ; Lumbago 724.2 ; Hepatitis C 070.70 and BPH (benign prostatic hyperplasia) 600.00 [facility] [id number] [place] [address] 17856- 0070 Aug, [facility] [id number] [place] [address] 79332- 0788 Aug, [facility] [id number] [place] [address] 56031- 7395 Jul, [facility] [id number] [place] [address] 63079- 7012 June, [facility] [id number] [place] [address] 50485- 6725 May, Lumbago 724.2 ; Other chronic pain 338.29 and Dizziness 780.4 [facility] [id number] [place] [address] 97638- 9939 May, [facility] [id number] [place] [address] 18292- 3210 May, [facility] [id number] [place] [address] 31153- 0777 Apr, [facility] [place] [facility] [address] [id number] [place] [address]- 0077 Apr, [facility] [place] [facility] [address] [id number] [place] [address]- 9062 Apr, 2014 [facility] [place] [facility] [address] [id number] [place] [address]- 1830 Apr, 2014 [facility] [place] [facility] [address] [id number] [place] [address]- 3551 Apr, 2014 [facility] [place] [facility] [address] [id number] [place] [address]- 7045 Apr, 2014 [facility] [place] [facility] [address] [id number] [place] [address]- 5091 Mar, 2014 [facility] [place] [facility] [address] [facility] [id number] [place] [address]- 5064 Mar, 2014 [facility] [place] [facility] [address] [id number] [place] [address]- 6894 10 Mar, 2014 [facility] [place] [facility] [address] [id number] [place] [address]- 0933 10 Mar, 2014 [facility] [place] [facility] [address] [facility] [id number] [place] [address]- 7713 10 Mar, 2014 [facility] [place] [facility] [address] [facility] [id number] [place] [address]- 9502 Mar, 2014 [facility] [place] [facility] [address] [id number] [place] [address]- 2711 Mar, 2014 [facility] [place] [facility] [address] [id number] [place] [address]- 9496 Mar, 2014 [facility] [place] [facility] [address] [id number] [place] [address]- 1044 Feb, [facility] [place] [facility] [address] [id number] [place] [address]- 7464 Feb, [facility] [place] [facility] [address] [id number] [address]- 1534 Jan, [facility] [place] [facility] [address] [id number] [place] [address]- 5533 Jan, [facility] [place] [facility] [address] [id number] [place] [address]- 0544 Jan, [facility] [place] [facility] [address] [id number] [place] [address]- 3177 Jan, [facility] [place] [facility] [address] [id number] [place] [address]- 4656 Nov, [facility] [place] [facility] [address] [id number] [place] [address]- 2183 Nov, [facility] [place] [facility] [address] [id number] [place] [address]- 8996 Nov, [facility] [place] [facility] [address] [id number] [address]- 6339 Nov, [facility] [place] [facility] [address] [id number] [address]- 3442 Nov, [facility] [place] [facility] [address] [facility] [id number] [place] [address]- 0729 Nov, [facility] [place] [facility] [address] [facility] [id number] [address]- 6052 Nov, [facility] [place] [facility] [address] [id number] [address]- 7003 Nov, [facility] [place] [facility] [address] [id number] [address]- 3434 Nov, [facility] [place] [facility] [address] [id number] [address]- 6999 Nov, [facility] [place] [facility] [address] [facility] [id number] [address]- 1885 Nov, [facility] [place] [facility] [address] [facility] [id number] [address]- 5867 Nov, [facility] [place] [facility] [address] [id number] [place] [address]- 6429 12 Sep, 2013 [facility] [place] [facility] [address] [id number] [place] [address] 2546 12 Sep, 2013 [facility] [place] [facility] [address] [id number] [place] [address] 2546 12 Sep, 2013 [facility] [place] [facility] [address] [id number] [place] [address] 2543 12 Sep, 2013 [facility] [place] [facility] [address] [id number] [place] [address] 2547 11 Sep, 2013 [facility] [place] [facility] [address] [id number] [place] [address]- 0634 11 Sep, 2013 [facility] [place] [facility] [address] [id number] [place] [address]- 6531 10 Oct, 2013 [facility] [place] [facility] [address] [id number] [place] [address]- 3053 10 Oct, 2013 [facility] [place] [facility] [address] [id number] [place] [address] 2543 10 Oct, 2013 [facility] [place] [facility] [address] [id number] [place] [address] 2547 10 Oct, 2013 [facility] [place] [facility] [address] [id number] [place] [address]- 3918 03 Sep, 2013 [facility] [place] [facility] [address] [id number] [place] [address] 2542 03 Sep, 2013 [facility] [place] [facility] [address] [id number] [place] [address] 2547 02 Sep, 2013 [facility] [place] [facility] [address] [id number] [place] [address] 2542 02 Sep, 2013 [facility] [place] [facility] [address] [id number] [place] [address] 2544 02 Sep, 2013 [facility] [place] [facility] [address] [id number] [place] [address]- 6458 Oct, [facility] [place] [facility] [address] [id number] [place] [address]- 4924 Oct, [facility] [place] [facility] [address] [id number] [place] [address]- 1402 Oct, [facility] [place] [facility] [address] [id number] [place] [address]- 8935 Sep, [facility] [place] [facility] [address] [id number] [place] [address]- 9778 Sep, [facility] [place] [facility] [address] [id number] [place] [address]- 7254 Sep, [facility] [place] [facility] [address] [id number] [place] [address]- 9141 Sep, [facility] [place] [facility] [address] [id number] [place] [address]- 3587 Sep, [facility] [place] [facility] [address] [id number] [place] [address]- 0242 Sep, [facility] [place] [facility] [address] [id number] [place] [address]- 0559 Sep, [facility] [place] [facility] [address] [id number] [place] [address]- 3922 Sep, [facility] [place] [facility] [address] [id number] [place] [address]- 8014 Sep, [facility] [place] [facility] [address] [id number] [place] [address]- 0189 Sep, [facility] [place] [facility] [address] [id number] [place] [address]- 9791 Aug, [facility] [place] [facility] [address] [id number] [place] [address]- 2266 Aug, [facility] [place] [facility] [address] [id number] [place] [address]- 1607 Aug, [facility] [place] [facility] [address] [id number] [place] [address]- 8749 Aug, 2013 [facility] [place] [facility] [address] [id number] [place] [address]- 1470 Aug, 2013 [facility] [place] [facility] [address] [id number] [place] [address]- 9557 Aug, [facility] [place] [facility] [address] [id number] [place] [address]- 7533 Aug, 2013 [facility] [place] [facility] [address] [id number] [place] [address]- 7808 Aug, [facility] [place] [facility] [address] [id number] [place] [address]- 5687 Aug, [facility] [place] [facility] [address] [id number] [place] [address]- 9353 Aug, [facility] [place] [facility] [address] [id number] [place] [address]- 0113 Aug, [facility] [place] [facility] [address] [id number] [place] [address]- 9633 Aug, [facility] [place] [facility] [address] [id number] [place] [address]- 5837 Aug, [facility] [place] [facility] [address] [id number] [place] [address]- 8144 Jul, [facility] [place] [facility] [address] [id number] [place] [address]- 5204 Jul, [facility] [place] [facility] [address] [id number] [place] [address]- 8086 Jul, [facility] [place] [facility] [address] [id number] [place] [address]- 0024 Jul, [facility] [place] [facility] [address] [id number] [place] [address]- 1469 Jul, [facility] [place] [facility] [address] [id number] [place] [address]- 5809 Jul, [facility] [place] [facility] [address] [id number] [place] [address]- 7303 Jul, [facility] [place] [facility] [address] [id number] [place] [address] Jul, [facility] [place] [facility] [address] [id number] [place] [address] Jul, [facility] [place] [facility] [address] [id number] [place] [address] Jul, [facility] [place] [facility] [address] [id number] [place] [address] Jul, [facility] [place] [facility] [address] [id number] [place] [address] June, [facility] [place] [facility] [address] [id number] [place] [address] June, [facility] [place] [facility] [address] [id number] [place] [address] June, [facility] [place] [facility] [address] [id number] [place] [address] June, [facility] [place] [facility] [address] [id number] [place] [address] June, [facility] [place] [facility] [address] [id number] [place] [address] 16 May, 2013 [facility] [place] [facility] [address] [id number] [place] [address] 16 May, 2013 [facility] [place] [facility] [address] [id number] [place] [address] May, [facility] [place] [facility] [address] [id number] [place] [address] 15 May, 2013 [facility] [place] [facility] [address] [id number] [place] [address] Apr, [facility] [place] [facility] [address] [id number] [place] [address] Apr, [facility] [place] [facility] [address] [id number] [place] [address] Apr, [facility] [place] [facility] [address] [id number] [place] [address] Apr, [facility] [place] [facility] [address] [id number] [place] [address] Apr, [facility] [place] [facility] [address] [id number] [place] [address]- [address] Apr, [facility] [place] [facility] [address] [id number] [place] [address] Apr, [facility] [place] [facility] [address] [id number] [place] [address] Apr, [facility] [place] [facility] [address] [facility] [id number] [place] [address] Mar, [facility] [place] [facility] [address] [id number] [place] [address] Mar, [facility] [place] [facility] [address] [id number] [place] [address] Mar, [facility] [place] [facility] [address] [facility] [id number] [place] [address] Mar, [facility] [place] [facility] [address] [id number] [place] [address] Feb, [facility] [place] [facility] [address] [id number] [address] Feb, [facility] [place] [facility] [address] [id number] [place] [address] Feb, [facility] [place] [facility] [address] [id number] [place] [address] Feb, [facility] [place] [facility] [address] [facility] [id number] [place] [address] Jan, [facility] [place] [facility] [address] [id number] [place] [address] Jan, [facility] [place] [facility] [address] [id number] [place] [address] Jan, [facility] [place] [facility] [address] [id number] [place] [address] Jan, [facility] [place] [facility] [address] [id number] [place] [address] Jan, [facility] [place] [facility] [address] [id number] [place] [address] Dec, [facility] [place] [facility] [address] [id number] [place] [address] Dec, [facility] [place] [facility] [address] [id number] [place] [address] Dec, [facility] [place] [facility] [address] [id number] [place] [address] Dec, [facility] [place] [facility] [address] [id number] [place] [address] Dec, [facility] [place] [facility] [address] [id number] [place] [address] Dec, [facility] [place] [facility] [address] [id number] [place] [id number] Dec, [facility] [place] [facility] [address] [id number] [place] [address] Dec, [facility] [place] [facility] [address] [id number] [place] [address] Nov, [facility] [place] [facility] [address] [id number] [place] [address] Nov, [facility] [place] [facility] [address] [id number] [place] [address] Nov, [facility] [place] [facility] [address] [id number] [place] [address] Nov, [facility] [place] [facility] [address] [id number] [place] [address] Nov, [facility] [place] [facility] [address] [id number] [place] [address] Nov, [facility] [place] [facility] [address] [id number] [place] [address] Oct, [facility] [place] [facility] [address] [id number] [place] [address] Oct, [facility] [place] [facility] [address] [id number] [place] [address] Oct, [facility] [place] [facility] [address] [id number] [place] [address] Oct, [facility] [place] [facility] [address] [id number] [place] [address] Sep, [facility] [place] [facility] [address] [id number] [place] [address] Sep, [facility] [place] [facility] [address] [id number] [place] [address] Sep, [facility] [place] [facility] [address] [id number] [place] [address] Aug, [facility] [place] [facility] [address] [id number] [address] Aug, [facility] [place] [facility] [address] [id number] [address] Jul, [facility] [place] [facility] [address] [id number] [place] [address] Jul, [facility] [place] [facility] [address] [id number] [place] [address] June, [facility] [place] [facility] [address] [id number] [place] [address] June, [facility] [place] [facility] [address] [facility] [id number] [place] [address] June, [facility] [address] [facility] [id number] [place] [address] May, [facility] [address] [facility] [id number] [place]ALL[place] [address] Mar, [facility] [address] [facility] [id number] [place] [address] Mar, [facility] [address] [facility] [id number] [place] [address] Mar, [facility] [address] [facility] [id number] [place] [address] Mar, IMMUNIZATIONS No Known Immunizations SOCIAL HISTORY Never Assessed REASON FOR VISIT Transition of Care -- isabel mcdonald PLAN OF CARE Activity Details Follow Up 3 Months Reason:[facility] VITAL SIGNS Height 76 in 2017-01-18 Weight 232.0 lbs 2017-01-18 Temperature 98.0 degrees Fahrenheit 2017-01-18 Heart Rate 80 bpm 2017-01-18 Respiratory Rate 20 2017-01-18 BMI 28.24 kg/m2 2017-01-18 Blood pressure systolic 122 mmHg 2017-01-18 Blood pressure diastolic 76 mmHg 2017-01-18 MEDICATIONS Medication Instructions Dosage Frequency Start Date End Date Duration Status Colace 100 MG Orally Once a day 1 capsule as needed 24h Active Iodine - Active [place] Oil - Orally Once a day 2000mg Capsule 24h Active Gabapentin 800 MG Orally Three times a day 1 tablet 8h Nov, 30 days Active Magnesium 125 MG Active Baclofen 10 mg Orally Three times a day 1 tablet with food or milk 8h June, 30 days Active Vitamin D3 2000 UNIT Orally Once a day 1 capsule 24h Not-Taking Male Support - Active Lutein 6 MG Active Vitamin B Complex - Active Sertraline HCl 100MG Orally Once a day 1 tablet 24h Active Calcium Oral Once a day 1 tablet 24h Active Potassium 99 MG Orally Once a day 1 tablet 24h Active Diazepam 5 mg Orally Twice a day 1 tablet as needed 12h Feb, 30 days Active Melatonin 5 MG Orally at bedtime 1 tablet as needed Active Hydrocodone-Acetaminophen 10-325 MG Orally every 6 hrs 1 tablet as needed 6h 16 Dec, 2016 28 days Active RESULTS Name Result Date Reference Range Xray : Spine, Lumbar 2-3 views (IN HOUSE) 2017-01-18 PROCEDURES Procedure Date Ordered Result Body Site X-RAY EXAM OF LOWER SPINE Jan 18, 2017 INSTRUCTIONS MEDICATIONS ADMINISTERED No Known Medications [...]
--- OUTSIDE RECORDS SUMMARY | 2017-11-12 21:47 | XMS REPORT ---
Author TINO Resendiz [facility] eClinicalWorks Address Unknown Phone Unavailable Care Team Providers Care Night Clerk Name Role Phone TINO ALTAMIRANO CP Unavailable Allergies No Known Allergies Problems Problem Type Condition Code Onset Dates Condition Status Problem Obsessive compulsive disorder F42 Active Problem Panic disorder F41.0 Active Problem Depression F32.9 Active Problem Apnea R06.81 Active Problem Chronic pain G89.29 Active Problem Chronic viral hepatitis C B18.2 Active Problem Constipation, unspecified constipation type K59.00 Active Problem ED (erectile dysfunction) N52.9 Active Problem HTN (hypertension) I10 Active Problem Anxiety F41.9 Active Problem BPH (benign prostatic hyperplasia) N40.0 Active Medications Medication Code System Code Instructions Start Date End Date Status Dosage Diazepam [facility] [address]-51 5 mg Orally Twice a day Feb 16, 2015 1 tablet as needed Hydrochlorothiazide [facility] [address]-19 25 MG Orally Once a day TAKE ONE TABLET BY MOUTH ONCE DAILY IN THE MORNING Sertraline HCl [facility] [id number] 100 MG Orally Once a day 1 tablet Finasteride [facility] [address]-31 5 mg Orally Once a day TAKE ONE TABLET BY MOUTH DAILY Guanfacine HCl [facility] 53880443574 1 MG Orally Once a day TAKE ONE TABLET BY MOUTH AT BEDTIME Gabapentin [facility] [address]-02 800 MG Orally Three times a day Sep 18, 2013 1 capsule Results No Known Results Summary Purpose eClinicalWorks Submission
--- OUTSIDE RECORDS SUMMARY | 2017-11-12 21:47 | XMS REPORT ---
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 Name Role Phone TINO ALTAMIRANO CP Unavailable Allergies No Known Allergies Problems Problem Type Condition Code Onset Dates Condition Status Problem Obsessive compulsive disorder F42 Active Problem Panic disorder F41.0 Active Problem Depression F32.9 Active Assessment Anxiety F41.9 Active Problem Apnea R06.81 Active Problem Chronic pain G89.29 Active Problem Chronic viral hepatitis C B18.2 Active Problem Constipation, unspecified constipation type K59.00 Active Problem ED (erectile dysfunction) N52.9 Active Problem HTN (hypertension) I10 Active Problem Anxiety F41.9 Active Problem BPH (benign prostatic hyperplasia) N40.0 Active Medications Medication Code System Code Instructions Start Date End Date Status Dosage Diazepam [facility] [address]-41 5 mg Orally Twice a day Feb 16, 2015 1 tablet as needed Results No Known Results Summary Purpose eClinicalWorks Submission
--- OUTSIDE RECORDS SUMMARY | 2017-11-12 21:47 | XMS REPORT ---
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 Role Phone EVELIA TINO Unavailable PROBLEMS Type Condition ICD9-CM Code [id number] Code Onset Dates Condition Status SNOMED Code Problem Chronic viral hepatitis C B18.2 Active 185339722 Problem BPH (benign prostatic hyperplasia) N40.0 Active 885128213 Problem Obsessive compulsive disorder F42 Active 954959249 Problem Back pain at L4-L5 level M54.5 Active 821067736 Problem Degenerative disc disease at L5-S1 level M51.36 Active 47813035 Problem Chronic pain G89.29 Active 79253085 Problem Panic disorder F41.0 Active 764841281 Problem Benign nodular prostatic hyperplasia, presence of lower urinary tract symptoms unspecified N40.0 Active 594002770 Problem Constipation, unspecified constipation type K59.00 Active 24420981 Problem ED (erectile dysfunction) N52.9 Active 307235563 Problem HTN (hypertension) I10 Active 39715582 Problem Other obsessive-compulsive disorder F42.8 Active 612676086 Problem Depression F32.9 Active 76032826 Problem Apnea R06.81 Active 6957883 Problem Anxiety F41.9 Active 59080834 ALLERGIES Unknown Allergies SOCIAL HISTORY No smoking Hx information available PLAN OF CARE VITAL SIGNS MEDICATIONS Unknown Medications RESULTS No Results PROCEDURES No Known procedures IMMUNIZATIONS No Known Immunizations
--- OUTSIDE RECORDS SUMMARY | 2017-11-12 21:48 | XMS REPORT ---
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 Name Role Phone NORMA ALTAMIRANONETTE Unavailable PROBLEMS Type Condition ICD9-CM Code [id number] Code Onset Dates Condition Status SNOMED Code Problem Chronic viral hepatitis C B18.2 Active 097972098 Problem BPH (benign prostatic hyperplasia) N40.0 Active 142717413 Problem Obsessive compulsive disorder F42 Active 931317220 Problem Back pain at L4-L5 level M54.5 Active 305840968 Problem Degenerative disc disease at L5-S1 level M51.36 Active 87645139 Problem Chronic pain G89.29 Active 47762961 Problem Panic disorder F41.0 Active 352111978 Problem Benign nodular prostatic hyperplasia, presence of lower urinary tract symptoms unspecified N40.0 Active 587157838 Problem Constipation, unspecified constipation type K59.00 Active 62501862 Problem ED (erectile dysfunction) N52.9 Active 949175129 Problem HTN (hypertension) I10 Active 61860785 Problem Other obsessive-compulsive disorder F42.8 Active 469250122 Problem Depression F32.9 Active 31503846 Problem Apnea R06.81 Active 2137303 Problem Anxiety F41.9 Active 02112294 ALLERGIES No Information SOCIAL HISTORY Never Assessed PLAN OF CARE VITAL SIGNS MEDICATIONS Medication Instructions Dosage Frequency Start Date End Date Duration Status Hydrocodone-Acetaminophen 10-325 MG Orally every 6 hrs 1 tablet as needed 6h 24 Mar, 2016 28 days Active Diazepam 5 mg [...]
--- OUTSIDE RECORDS SUMMARY | 2017-11-12 21:48 | XMS REPORT ---
Author Author ARIASMAYELA DejesusELE Organization [facility] Address [address] [place] [address] Care Team Providers Care Bandoleer Packer Name Role Phone HAYLEY ARIAS Unavailable PROBLEMS Type Condition ICD9-CM Code [id number] Code Onset Dates Condition Status SNOMED Code Problem Obsessive compulsive disorder F42 Active 306297363 Problem Panic disorder F41.0 Active 499654045 Problem BPH (benign prostatic hyperplasia) N40.0 Active 851925403 Problem Chronic hepatitis C without hepatic coma B18.2 Active 481641557 Problem Back pain at L4-L5 level M54.5 Active 374247982 Problem Constipation, unspecified constipation type K59.00 Active 58004107 Problem Chronic pain G89.29 Active 01892209 Problem Degenerative disc disease at L5-S1 level M51.36 Active 74353680 Problem Benign nodular prostatic hyperplasia, presence of lower urinary tract symptoms unspecified N40.0 Active 097354194 Problem Other obsessive-compulsive disorder F42.8 Active 960999677 Problem HTN (hypertension) I10 Active 56796790 Problem Depression F32.9 Active 58589079 Problem Apnea R06.81 Active 2604110 Problem Anxiety F41.9 Active 61892576 Problem ED (erectile dysfunction) N52.9 Active 078252347 Problem Chronic viral hepatitis C B18.2 Active 600814647 ALLERGIES No Information ENCOUNTERS Encounter Location Date Diagnosis [facility] [address] [facility] [id number] [address] Jul, HTN (hypertension) I10 ; Depression F32.9 ; Degenerative disc disease at L5-S1 level M51.36 ; Benign nodular prostatic hyperplasia, presence of lower urinary tract symptoms unspecified N40.0 ; High risk medication use Z79.899 ; Controlled substance agreement signed Z79.899 ; Anxiety F41.9 ; Chronic hepatitis C without hepatic coma B18.2 and Injury of left knee, initial encounter S89.92XA [facility] [id number] [place] [address] 34726- 0520 Jul, [facility] [address] [address]- [address] June, Degenerative disc disease at L5-S1 level M51.36 [facility] [id number] [place] [address] 54541- 4716 Mar, [facility] [address] [address]- 6593 Mar, Controlled substance agreement signed Z79.899 and Degenerative disc disease at L5-S1 level M51.36 [facility] [address] [address]- 3444 Mar, Controlled substance agreement signed Z79.899 [facility] [address] 8[address]67- 9860 Feb, [facility] [id number] [place] [address] 70212- 6032 Feb, Degenerative disc disease at L5-S1 level M51.36 [facility] [address] [address]- 1041 Jan, HTN (hypertension) I10 ; Chronic pain G89.29 and Back pain at L4-L5 level M54.5 [facility] [address] 75208- 7378 Dec, Degenerative disc disease at L5-S1 level M51.36 [facility] [id number] [place] [address] 07879- 5257 Dec, Degenerative disc disease at L5-S1 level M51.36 and Depression F32.9 [facility] [id number] [place] [address] 43780- 6992 Oct, [facility] [id number] [place] [address] 33437- 9695 Sep, Chronic viral hepatitis C B18.2 ; BPH (benign prostatic hyperplasia) N40.0 ; HTN (hypertension) I10 ; Panic disorder F41.0 ; Obsessive compulsive disorder F42 ; Constipation, unspecified constipation type K59.00 and Degenerative disc disease at L5-S1 level M51.36 [facility] [id number] [place] [address] 98186- 6038 Aug, Chronic pain G89.29 [facility] [address] 40084- 1665 Aug, [facility] [address] 69702- 3544 May, Chronic pain G89.29 and Anxiety F41.[address] [address]- 3670 Apr, Chronic pain G89.29 and Anxiety F41.[address] 30518- 2629 Apr, Chronic pain G89.29 [facility] [facility] [address] 75386- 8800 Mar, Anxiety F41.9 and Chronic pain G89.29 [facility] [id number] [place] [address] 31079- 9683 Feb, [facility] [id number] [place] [address] 98185- 9193 Feb, Depression F32.9 [facility] [id number] [place] [address] 96096- 1510 Feb, [address] 63007- 4790 Feb, Chronic viral hepatitis C B18.2 ; ED (erectile dysfunction) N52.9 ; HTN (hypertension) I10 ; Depression F32.9 ; Constipation, unspecified constipation type K59.00 ; Chronic pain G89.29 ; Benign nodular prostatic hyperplasia, presence of lower urinary tract symptoms unspecified N40.0 ; Anxiety F41.9 and Screening cholesterol level Z13.220 [facility] [id number] [place] [address] 00080- 3125 Feb, [facility] [id number] [place] [address] 06627- 3555 Feb, Chronic pain G89.29 [facility] [id number] [place] [address] 79740- 1323 Feb, Anxiety F41.9 ; Chronic pain G89.29 ; Obsessive compulsive disorder F42 and HTN (hypertension) I10 [facility] [id number] [place] [address] 65768- 2735 Dec, [facility] [id number] [place] [address] 78801- 8197 Dec, [facility] [id number] [place] [address] 62469- 4290 Dec, Anxiety F41.9 [facility] [id number] [place] [address] 70567- 5875 Nov, Chronic viral hepatitis C B18.2 ; Anxiety F41.9 ; HTN ( hypertension) I10 ; Panic disorder F41.0 ; BPH (benign prostatic hyperplasia) N40.0 ; ED (erectile dysfunction) N52.9 ; Obsessive compulsive disorder F42 ; Constipation, unspecified constipation type K59.00 and Chronic pain G89.29 [facility] [id number] [place] [address] 82053- 6784 Nov, [facility] [id number] [place] [address] 43360- 3226 Nov, [facility] [id number] [place] [address] 60517- 3156 Oct, [facility] [id number] [place] [address] 31412- 8756 Aug, [facility] [id number] [place] [address] 08688- 7280 Jul, Chronic viral hepatitis C B18.2 ; BPH (benign prostatic hyperplasia) N40.0 ; ED (erectile dysfunction) N52.9 ; HTN (hypertension) I10 ; Panic disorder F41.0 ; Depression F32.9 ; Obsessive compulsive disorder F42 ; Apnea R06.81 ; Other chronic pain G89.29 and Dorsalgia, unspecified M54.9 [facility] [id number] [place] [address] 50161- 8106 08 Jul, 2015 Chronic pain G89.29 and Anxiety F41.9 [facility] [address] 99517- 6841 June, Chronic pain G89.29 [facility] [place] [address] 22630- 7606 June, Panic disorder F41.0 and Chronic pain G89.29 [facility] [address] 28324- 2566 May, [facility] [id number] [place] [address] 85773- 9623 May, [facility] [id number] [place] [address] 87171- 6982 May, [facility] [id number] [place] [address] 47759 -1889 Apr, Sinusitis J32.9 [facility] [id number] [place] [address] 98234- 0992 18 Apr, 2015 [facility] [id number] [place] [address] 11923- 3682 Apr, [facility] [address] 64486- 4130 Mar, [facility] [id number] [place] [address] 12090- 5528 Mar, Depression F32.9 ; Panic disorder F41.0 and Obsessive compulsive disorder F42 [facility] [address] [address]- 0128 08 Mar, 2015 [facility] [id number] [place] [address] 61940- 2496 Feb, [facility] [id number] [place] [address] 33645- 0942 Feb, Anxiety F41.9 ; ED (erectile dysfunction) N52.9 ; HTN ( hypertension) I10 ; Panic disorder F41.0 ; Depression F32.9 ; Obsessive compulsive disorder F42 ; BPH (benign prostatic hyperplasia) N40.0 ; Degenerative joint disease of low back M47.9 and Vitamin D deficiency E55.9 [facility] [id number] [place] [address] 28275- 2839 Feb, [facility] [id number] [place] [address] 64343- 4672 Dec, [facility] [id number] [place] [address] 79719- 4500 Dec, [facility] [id number] [place] [address] 78609- 6025 Dec, [facility] [id number] [place] [address] 86856- 7862 Nov, Chronic viral hepatitis C B18.2 ; Anxiety F41.9 ; BPH ( benign prostatic hyperplasia) N40.0 ; ED (erectile dysfunction) N52.9 ; HTN ( hypertension) I10 ; Panic disorder F41.0 ; Depression F32.9 ; Obsessive compulsive disorder F42 ; Apnea R06.81 ; Chronic pain G89.29 and Vitamin D deficiency E55.9 [facility] [id number] [place] [address] 96102- 8644 Nov, [facility] [id number] [place] [address] 69597- 8886 Nov, [facility] [id number] [place] [address] 00175- 4386 Nov, [facility] [address], [place] [address]- 5989 Nov, [facility] [address], [place] [address]- 3906 Oct, [facility] [address], [place] [address]- 5146 Oct, [facility] [id number] [place] [address] 00240- 9669 Oct, [facility] [id number] [place] [address] 24650- 5453 Sep, [facility] [id number] [place] [address], [place] [address]- 4517 Sep, [facility] [id number] [place] [address] 38195- 9442 Sep, [facility] [address], [place] [address]- 0462 Sep, [facility] [address], [place] [address]- 7179 Aug, Essential hypertension, benign 401.1 ; Obsessive-compulsive disorders 300.3 ; Anxiety state, unspecified 300.00 ; Depressive disorder, not elsewhere classified 311 ; Lumbago 724.2 ; Hepatitis C 070.70 and BPH (benign prostatic hyperplasia) 600.00 [facility] [address], [place] [address]- 4346 Aug, [facility] [address], [place] [address]- 7646 Aug, [facility] [id number] [address]- 6324 Jul, [facility] [address], [place] [address]- 5926 June, [facility] [address], [place] [address]- 0489 May, Lumbago 724.2 ; Other chronic pain 338.29 and Dizziness 780.4 [facility] [address] [place] [address]- 9284 14 May, 2014 [facility] [id number] [place] [address]- 7289 May, [facility] [id number] [place] [address] 85266- 2445 Apr, [facility] [id number] [place] [address], [place] [address]- 0115 Apr, [facility] [id number] [place] [address], [place] [address]- 3100 Apr, [facility] [id number] [place] [address] 15922- 1321 Apr, [facility] [id number] [place] [address] 30576- 7749 Apr, [facility] [address], [place] [address]- 2124 Apr, [facility] [id number] [address]- 2462 Mar, [facility] [address], [place] [address]- 8809 Mar, [facility] [address], [place] [address]- 0253 Mar, [facility] [address], [place] [address]- 9339 Mar, [facility] [address], [place] [address]- 4499 Mar, [facility] [address], [place] [address]- 1854 Mar, [facility] [address], [place] [address]- 5527 Mar, 2014 [facility] [place] [facility] [address] [id number] [place] [address]- 0679 Mar, [facility] [place] [facility] [address] [id number] [place] 0447 Feb, [facility] [place] [facility] [address] [id number] [place] [address]- 5568 Feb, [facility] [place] [facility] [address] [id number] [place] [address]- 8812 Jan, [facility] [place] [facility] [address] [id number] [place] [address]- 7626 Jan, [facility] [place] [facility] [address] [id number] [place] [address]- 1517 Jan, [facility] [place] [facility] [address] [id number] [place] [address]- 8667 Jan, [facility] [place] [facility] [address] [id number] [place] [address]- 0916 Nov, [facility] [place] [facility] [address] [id number] [place] [address]- 0997 Nov, [facility] [place] [facility] [address] [id number] [place] [address]- 8088 Nov, [facility] [place] [facility] [address] [id number], [place] [address]- 8974 Nov, [facility] [place] [facility] [address] [id number], [place] [address]- 0788 Nov, [facility] [place] [facility] [address] [id number] [place] [address]- 4239 Nov, [facility] [place] [facility] [address] [id number], [place] [address]- 4733 Nov, [facility] [place] [facility] [address] [id number] [place] [address]- 7703 Nov, [facility] [place] [facility] [address] [id number] [place] [address]- 0790 Nov, [facility] [place] [facility] [address] [id number] [place] [address]- 7811 Nov, [facility] [place] [facility] [address] [id number] [place] [address]- 7238 Nov, [facility] [place] [facility] [address] [id number] [place] [address]- 6283 Nov, [facility] [place] [facility] [address] [id number] [place] [address]- 5315 Oct, 2013 [facility] [place] [facility] [address] [id number] [place] [address]- 9013 Oct, 2013 [facility] [place] [facility] [address] [id number] [place] [address]- 2419 Oct, 2013 [facility] [place] [facility] [address] [id number] [place] [address]- 8841 12 Oct, 2013 [facility] [place] [facility] [address] [id number] [place] [address]- 7061 11 Oct, 2013 [facility] [place] [facility] [address] [id number] [place] [address]- 7425 11 Oct, 2013 [facility] [place] [facility] [address] [id number] [place] [address]- 9681 10 Oct, 2013 [facility] [place] [facility] [address] [id number] [place] [address]- 2543 10 Oct, 2013 [facility] [place] [facility] [address] [id number] [place] [address]- 2542 10 Oct, 2013 [facility] [place] [facility] [address] [id number] [place] [address]- 254 10 Oct, 2013 [facility] [place] [facility] [address] [id number] [place] [address]- 2544 03 Oct, 2013 [facility] [place] [facility] [address] [id number] [place] 5647 Oct, 2013 [facility] [place] [facility] [address] [id number] [place] [address]- 2504 Oct, 2013 [facility] [place] [facility] [address] [id number] [place] [address]- 7643 Oct, 2013 [facility] [place] [facility] [address] [id number] [place] [address]- 0501 Oct, 2013 [facility] [place] [facility] [address] [id number] [place] [address]- 7448 Oct, 2013 [facility] [place] [facility] [address] [id number] [place] [address]- 5529 Oct, 2013 [facility] [place] [facility] [address] [id number] [place] [address]- 7595 Oct, [facility] [place] [facility] [address] [id number] [place] [address]- 1074 Sep, [facility] [place] [facility] [address] [id number] [place] [address]- 7130 Sep, [facility] [place] [facility] [address] [id number] [place] [address]- 9425 Sep, [facility] [place] [facility] [address] [id number] [place] [address]- 1080 Sep, [facility] [place] [facility] [address] [id number], [place] [address]- 0957 Sep, [facility] [place] [facility] [address] [id number], [place] [address]- 1694 Sep, [facility] [place] [facility] [address] [id number] [place] [address]- 3885 Sep, [facility] [place] [facility] [address] [id number] [place] [address]- 6540 Sep, [facility] [place] [facility] [address] [id number] [place] [address]- 7833 Sep, [facility] [place] [facility] [address] [id number], [place] [address]- 9551 Sep, [facility] [place] [facility] [address] [id number] [place] [address]- 0471 Aug, [facility] [place] [facility] [address] [id number] [place] [address]- 6334 Aug, [facility] [place] [facility] [address] [id number] [place] [address]- 9165 Aug, [facility] [place] [facility] [address] [id number] [place] [address]- 6140 Aug, [facility] [place] [facility] [address] [id number] [place] [address]- 1455 Aug, [facility] [place] [facility] [address] [id number] [place] [address]- 2117 Aug, [facility] [place] [facility] [address] [id number] [place] [address]- 9757 Aug, [facility] [place] [facility] [address] [id number] [place] [address]- 7980 Aug, [facility] [place] [facility] [address] [id number] [place] [address]- 4580 Aug, [facility] [place] [facility] [address] [id number] [place] [address]- 1061 Aug, [facility] [place] [facility] [address] [id number] [place] [address]- 1988 Aug, [facility] [place] [facility] [address] [id number] [place] [address]- 6540 Aug, [facility] [place] [facility] [address] [id number] [place] [address]- 5920 Aug, [facility] [place] [facility] [address] [id number] [place] [address]- 6889 Jul, [facility] [place] [facility] [address] [id number] [place] [address]- 1488 Jul, [facility] [place] [facility] [address] [id number] [place] [address]- 3274 05 Jul, 2013 [facility] [place] [facility] [address] [id number] [place] [address]- 3329 Jul, [facility] [place] [facility] [address] [id number] [place] [address]- 0368 Jul, [facility] [place] [facility] [address] [id number] [place] [address]- 3237 Jul, [facility] [place] [facility] [address] [id number] [place] [address]- 6169 Jul, [facility] [place] [facility] [address] [id number] [place] [address]- 9302 Jul, [facility] [place] [facility] [address] [id number] [place] [address]- 2568 Jul, [facility] [place] [facility] [address] [id number] [place] [address]- 8577 Jul, [facility] [place] [facility] [address] [id number] [place] [address]- 2153 Jul, [facility] [place] [facility] [address] [id number] [place] [address]- 6384 June, [facility] [place] [facility] [address] [id number] [place] [address]- 0770 June, [facility] [place] [facility] [address] [id number] [place] [address]- 1583 June, [facility] [place] [facility] [address] [id number] [place] [address]- 7027 June, [facility] [place] [facility] [address] [id number] [place] [address]- 1343 June, [facility] [place] [facility] [address] [id number] [place] [address]- 0105 May, [facility] [place] [facility] [address] [id number] [place] [address]- 5742 16 May, 2013 [facility] [place] [facility] [address] [id number] [place] [address]- 0788 May, [facility] [place] [facility] [address] [id number] [place] [address]- 0346 May, [facility] [place] [facility] [address] [id number] [place] [address]- 3005 Apr, [facility] [place] [facility] [address] [id number] [place] [address]- 2790 Apr, [facility] [place] [facility] [address] [id number] [place] [address]- 8216 Apr, [facility] [place] [facility] [address] [id number] [place] [address]- 6127 Apr, [facility] [place] [facility] [address] [id number] [place] [address] Apr, [facility] [place] [facility] [address] [id number] [place] [address] Apr, [facility] [place] [facility] [address] [id number] [place] [address] Apr, [facility] [place] [facility] [address] [id number] [place] [address] Apr, [facility] [place] [facility] [address] [id number] [place] [address] Mar, [facility] [place] [facility] [address] [id number] [place] [address] Mar, [facility] [place] [facility] [address] [id number] [place] [address] Mar, [facility] [place] [facility] [address] [id number] [place] [address] Mar, [facility] [place] [facility] [address] [id number] [place] [address] Feb, [facility] [place] [facility] [address] [id number] [place] [address] Feb, [facility] [address] [id number] [place] [address] Feb, [facility] [address] [id number] [place] [address] Feb, [facility] [address] [id number] [place] [address] Jan, [facility] [address] [id number] [place] [address] Jan, [facility] [address] [id number] [place] [address] Jan, [facility] [address] [id number] [place] [address] Jan, [facility] [address] [id number] [place] [address] Jan, [facility] [address] [id number] [place] [address] Dec, [facility] [address] [id number] [place] [address] Dec, [facility] [address] [id number] [place] [address] Dec, [facility] [place] [facility] [address] [id number] [place] [address] Dec, [facility] [address] [id number] [place] [address] Dec, [facility] [place] [facility] [address] [id number] [place] [address] Dec, [facility] [place] [facility] [address] [id number] [place] [address] Dec, [facility] [address] [id number] [place] [address] Dec, [facility] [place] [facility] [address] [id number] [place] [address] Nov, [facility] [place] [facility] [address] [id number] [place] [address] Nov, [facility] [place] [facility] [address] [id number] [place] [address] Nov, [facility] [place] [facility] [address] [id number] [place] [address] Nov, [facility] [place] [facility] [address] [id number] [place] [address] Nov, [facility] [place] [facility] [address] [id number] [place] [address] Nov, [facility] [place] [facility] [address] [id number] [place] [address]- [address] 30 Oct, 2012 [facility] [place] [facility] [address] [id number] [place] [address] Oct, [facility] [place] [facility] [address] [id number] [place] [address] Oct, [facility] [place] [facility] [address] [id number], [place] [address] Oct, [facility] [place] [facility] [address] [id number], [place] [address] Sep, [facility] [place] [facility] [address] [id number], [place] [address] Sep, [facility] [place] [facility] [address] [id number] [place] [address] Sep, [facility] [place] [facility] [address] [id number], [place] [address] Aug, [facility] [place] [facility] [address] [id number], [place] [address] Aug, [facility] [place] [facility] [address] [id number], [place] [address] Jul, [facility] [address] [id number], [place] [address] Jul, [facility] [id number], [place] [address] June, [facility] [id number], [place] [address] June, [facility] [id number], [place] [address] June, [facility] [address] [id number] [address] May, [facility] [id number], [place] [address] Mar, [facility] [id number], [place] [address] Mar, [facility] [id number], [place] [address] Mar, [facility] [id number], [place] [address] Mar, IMMUNIZATIONS No Known Immunizations SOCIAL HISTORY Never Assessed REASON FOR VISIT Controlled Med Refill PLAN OF CARE VITAL SIGNS MEDICATIONS Medication Instructions Dosage Frequency Start Date End Date Duration Status Hydrocodone-Acetaminophen 10-325 MG Orally every 6 hrs 1 tablet as needed 6h Feb, 28 days Active RESULTS No Results PROCEDURES [...]
--- OUTSIDE RECORDS SUMMARY | 2017-11-12 21:48 | XMS REPORT ---
Author Author TINO ALTAMIRANO [facility] eClinicalWorks Address Unknown Phone Unavailable Care Team Providers Care Slunk Skin Curer Name Role Phone TINO ALTAMIRANO CP Unavailable [...] Panic disorder without agoraphobia 300.01 Active Medications No Known Medications Results No Known Results Summary Purpose eClinicalWorks Submission
--- OUTSIDE RECORDS SUMMARY | 2017-11-12 21:48 | XMS REPORT ---
Author Author TINO ALTAMIRANO [facility] Address [address] [place] [address] Care Team Providers Care Stave And Bolt Equalizer Name Role Phone EVELIA TINO Unavailable PROBLEMS Type Condition ICD9-CM Code [id number] Code Onset Dates Condition Status SNOMED Code Problem Chronic viral hepatitis C B18.2 Active 593978384 Problem BPH (benign prostatic hyperplasia) N40.0 Active 700756791 Problem Obsessive compulsive disorder F42 Active 065864916 Problem Back pain at L4-L5 level M54.5 Active 493372946 Problem Degenerative disc disease at L5-S1 level M51.36 Active 19919616 Problem Chronic pain G89.29 Active 79347487 Problem Panic disorder F41.0 Active 489865409 Problem Benign nodular prostatic hyperplasia, presence of lower urinary tract symptoms unspecified N40.0 Active 141341459 Problem Constipation, unspecified constipation type K59.00 Active 45301459 Problem ED (erectile dysfunction) N52.9 Active 104394476 Problem HTN (hypertension) I10 Active 96005925 Problem Other obsessive-compulsive disorder F42.8 Active 217624163 Problem Depression F32.9 Active 91599580 Problem Apnea R06.81 Active 7709875 Problem Anxiety F41.9 Active 81415529 ALLERGIES Substance Reaction Event Type Date Status Codeine Sulfate itching Drug Allergy Feb, Active SOCIAL HISTORY No smoking Hx information available PLAN OF CARE Activity Details Follow Up 3 Months Reason:chronic pain VITAL SIGNS Height 76 in 2016-03-03 Weight 240.2 lbs 2016-03-03 Temperature 98.2 degrees Fahrenheit 2016-03-03 Heart Rate 66 bpm 2016-03-03 Respiratory Rate 20 2016-03-03 BMI 29.23 kg/m2 2016-03-03 Blood pressure systolic 120 mmHg 2016-03-03 Blood pressure diastolic 84 mmHg 2016-03-03 MEDICATIONS Medication Instructions Dosage Frequency Start Date End Date Duration Status Potassium 99 MG Orally Once a day 1 tablet 24h Active Colace 100 MG Orally Once a day 1 capsule as needed 24h Active Baclofen 10 mg Orally 2 times a day TAKE ONE TABLET 12h 30 days Active Finasteride 5 mg Orally Once a day TAKE ONE TABLET BY MOUTH DAILY 24h 90 days Active Diazepam 5 mg Orally Twice a day 1 tablet as needed 12h 12 Feb, 2015 28 days Active Zoloft 50 mg Orally Once a day 1 tablet 24h 90 days Active Fish Oil 1000 MG Orally Once a day 1 capsule 24h Active Hydrocodone-Acetaminophen 10-325 MG Orally every 6 hrs 1 tablet as needed 6h Feb, 14 days Active Sertraline HCl 100 mg Orally Once a day 1 tablet 24h 90 days Active Lisinopril 10 mg Orally Once a day as directed 24h Feb, Active Ocuvite Adult 50+ Active Gabapentin 800 MG Orally Three times a day 1 tablet 8h Nov, 30 days Active Calcium & Magnesium Carbonates 311-232 mg take 2 tablets by Oral route as needed or as directed. 1 time per day Not to exceed 24 tablets in 24hrs Jul, Active Guanfacine HCl 1 MG Orally Once a day 1 tablet at bedtime 24h Feb, 30 day(s) Active Vitamin D3 2000 UNIT Orally Once a day 1 capsule 24h Active Melatonin 3-10 MG Active RESULTS Name Result Date Reference Range CBC 2016-03-03 WBC 5.6 3.4-10.8 RBC 4.95 4.14-5.80 Hemoglobin 14.4 12.6-17.7 Hematocrit 42.8 37.5-51.0 MCV 87 79-97 MCH 29.1 26.6-33.0 MCHC 33.6 31.5-35.7 RDW 13.4 12.3-15.4 Platelets 251 150-379 Neutrophils 55 Lymphs 32 Monocytes 9 Eos 4 Basos 0 Neutrophils (Absolute) 3.1 1.4-7.0 Lymphs (Absolute) 1.8 0.7-3.1 Monocytes(Absolute) 0.5 0.1-0.9 Eos (Absolute) 0.2 0.0-0.4 Baso (Absolute) 0.0 0.0-0.2 Immature Granulocytes 0 Immature Grans (Abs) 0.0 0.0-0.1 PSA 2016-03-03 Prostate Specific Ag, Serum 0.2 0.0-4.0 LIPID PANEL 2016-03-03 Cholesterol, Total 220 100-199 Triglycerides 109 0-149 HDL Cholesterol 48 >39 VLDL Cholesterol Kiran 22 5-40 LDL Cholesterol Calc 150 0-99 Comment: CMP 2016-03-03 Glucose, Serum 93 65-99 BUN 24 8-27 Creatinine, Serum 0.91 0.76-1.27 eGFR If NonAfricn Am 91 >59 eGFR If Africn Am 105 >59 BUN/Creatinine Ratio 26 10-22 Sodium, Serum 140 134-144 Potassium, Serum 4.6 3.5-5.2 Chloride, Serum 96 96-106 Carbon Dioxide, Total 28 18-29 Calcium, Serum 9.1 8.6-10.2 Protein, Total, Serum 7.2 6.0-8.5 Albumin, Serum 4.5 3.6-4.8 Globulin, Total 2.7 1.5-4.5 A/G Ratio 1.7 1.1-2.5 Bilirubin, Total 0.4 0.0-1.2 Alkaline Phosphatase, S 46 39-117 AST (SGOT) 15 0-40 ALT (SGPT) 18 0-44 AMERITOX 2016-03-03 PROCEDURES Procedure Date Ordered Related Diagnosis Body Site No Charge Mar 03, 2016 Office Visit, Est Pt., Level 4 Mar 03, 2016 VENIPUNCT, ROUTINE* Mar 03, 2016 COMPREHEN METABOLIC PANEL Mar 03, 2016 COMPLETE CBC W/AUTO DIFF WBC Mar 03, 2016 LIPID PANEL Mar 03, 2016 ASSAY OF PSA, TOTAL Mar 03, 2016 IMMUNIZATIONS No Known Immunizations
--- OUTSIDE RECORDS SUMMARY | 2017-11-12 21:49 | XMS REPORT ---
Author TINO Resendiz [facility] eClinicalWorks Address Unknown Phone Unavailable Care Team Providers Care Reel Assembler Name Role Phone TINO ALTAMIRANO CP Unavailable [...] Instructions Start Date End Date Status Dosage Hydrocodone-Acetaminophen [facility] [place] [id number] 10-325 MG Orally may fill on 4 times a day April 16, 2014 Jan 21, 2015 1 tablet as needed Results No Known Results Summary Purpose eClinicalWorks Submission
--- OUTSIDE RECORDS SUMMARY | 2017-11-12 21:49 | XMS REPORT ---
Author Author TINO Oliver Organization [facility] Address [address] [place] [address] Care Team Providers Care Sports Coordinator Name Role Phone TINO Oliver Unavailable PROBLEMS Type Condition ICD9-CM Code NFL88-HD Code Onset Dates Condition Status SNOMED Code Problem Chronic viral hepatitis C B18.2 Active 826866678 Problem BPH (benign prostatic hyperplasia) N40.0 Active 653137980 Problem Obsessive compulsive disorder F42 Active 366490957 Problem Back pain at L4-L5 level M54.5 Active 986100330 Problem Degenerative disc disease at L5-S1 level M51.36 Active 77175708 Problem Chronic pain G89.29 Active 32014887 Problem Panic disorder F41.0 Active 129227319 Problem Benign nodular prostatic hyperplasia, presence of lower urinary tract symptoms unspecified N40.0 Active 120483467 Problem Constipation, unspecified constipation type K59.00 Active 63905828 Problem ED (erectile dysfunction) N52.9 Active 816835867 Problem HTN (hypertension) I10 Active 86734770 Problem Other obsessive-compulsive disorder F42.8 Active 116445842 Problem Depression F32.9 Active 41342611 Problem Apnea R06.81 Active 7749780 Problem Anxiety F41.9 Active 91682780 ALLERGIES No Information ENCOUNTERS Encounter Location Date Diagnosis [facility] [id number] [place] [address] 63083- 7169 Mar, [facility] [id number] [place] [address] 83247- 8072 Mar, Controlled substance agreement signed Z79.899 and Degenerative disc disease at L5-S1 level M51.36 [place] [id number] [place] [address] 68004- 1482 Mar, Controlled substance agreement signed Z79.899 [place] [id number] [place] [address] 37813- 7807 Feb, [place] [id number] [place] [address] 28434- 1922 Feb, Degenerative disc disease at L5-S1 level M51.36 [place] [id number] [place] [address] 63531- 8857 Jan, HTN (hypertension) I10 ; Chronic pain G89.29 and Back pain at L4-L5 level M54.5 [place] [id number] [place] [address] 76243- 5370 Dec, Degenerative disc disease at L5-S1 level M51.36 [place] [id number] [place] [address] 40763- 5950 Dec, Degenerative disc disease at L5-S1 level M51.36 and Depression F32.9 [place] [id number] [place] [address] 42112- 2241 Oct, [place] [id number] [place] [address] 26866- 4289 Sep, Chronic viral hepatitis C B18.2 ; BPH (benign prostatic hyperplasia) N40.0 ; HTN (hypertension) I10 ; Panic disorder F41.0 ; Obsessive compulsive disorder F42 ; Constipation, unspecified constipation type K59.00 and Degenerative disc disease at L5-S1 level M51.36 [place] [id number] [place] [address] 07445- 0527 Aug, Chronic pain G89.29 [place] [id number] [place] [address] 20763- 7803 Aug, [place] [id number] [place] [address] 54044- 4149 May, Chronic pain G89.29 and Anxiety F41.9 [place] [id number] [place] [address] 87649- 5925 Apr, Chronic pain G89.29 and Anxiety F41.9 [facility] [id number] [place] [address] 60773- 4672 Apr, Chronic pain G89.29 [facility] [id number] [place] [address] 92913- 2491 Mar, Anxiety F41.9 and Chronic pain G89.29 [place] [address] 38951- 1958 Feb, [facility] [id number] [place] [address] 93698- 9645 Feb, Depression F32.9 [place] [address] 32093- 9366 Feb, [place] [id number] [place] [address] 08971- 6818 Feb, Chronic viral hepatitis C B18.2 ; ED (erectile dysfunction) N52.9 ; HTN (hypertension) I10 ; Depression F32.9 ; Constipation, unspecified constipation type K59.00 ; Chronic pain G89.29 ; Benign nodular prostatic hyperplasia, presence of lower urinary tract symptoms unspecified N40.0 ; Anxiety F41.9 and Screening cholesterol level Z13.220 [place] [id number] [place] [address] 42311- 3708 Feb, [place] [id number] [place] [address] 75209- 9525 Feb, Chronic pain G89.29 [facility] [id number] [place] [address] 64263- 4200 Feb, Anxiety F41.9 ; Chronic pain G89.29 ; Obsessive compulsive disorder F42 and HTN (hypertension) I10 [facility] [id number] [place] [address] 19026- 0441 Dec, [facility] [id number] [place] [address] 71760- 4733 Dec, [place] [address] [address]- 7999 Dec, Anxiety F41.9 [place] [id number] [place] [address] 93141- 2539 Nov, Chronic viral hepatitis C B18.2 ; Anxiety F41.9 ; HTN ( hypertension) I10 ; Panic disorder F41.0 ; BPH (benign prostatic hyperplasia) N40.0 ; ED (erectile dysfunction) N52.9 ; Obsessive compulsive disorder F42 ; Constipation, unspecified constipation type K59.00 and Chronic pain G89.29 [place] [id number] [place] [address] 62908- 1435 Nov, [place] [id number] [place] [address] 86662- 7922 Nov, [place] [id number] [place] [address] 99284- 4188 Oct, [place] [id number] [place] [address] 13920- 8969 Aug, [place] [id number] [place] [address] 58380- 6486 Jul, Chronic viral hepatitis C B18.2 ; BPH (benign prostatic hyperplasia) N40.0 ; ED (erectile dysfunction) N52.9 ; HTN (hypertension) I10 ; Panic disorder F41.0 ; Depression F32.9 ; Obsessive compulsive disorder F42 ; Apnea R06.81 ; Other chronic pain G89.29 and Dorsalgia, unspecified M54.9 [place] [address] [place] [address] 94658- 6851 Jul, Chronic pain G89.29 and Anxiety F41.9 [place] [id number] [place] [address] 33389- 2455 June, Chronic pain G89.29 [place] [id number] [place] [address] 12346- 7414 June, Panic disorder F41.0 and Chronic pain G89.29 [facility] [address] [address] 2016 14 May, 2015 [facility] [id number] [place] [address] 44580- 7336 May, [facility] [address], [place] [address]- 4048 May, [facility] [id number] [place] [address] 32666 -1693 23 Apr, 2015 Sinusitis J32.9 [facility] [id number] [place] [address] 27740- 0557 Apr, [facility] [id number] [place] [address] 58884- 2824 Apr, [facility] [id number] [place] [address] 34370- 8668 Mar, [facility] [id number] [place] [address] 46618- 0703 Mar, Depression F32.9 ; Panic disorder F41.0 and Obsessive compulsive disorder F42 [facility] [id number] [place] [address] 84059- 0866 Mar, [facility] [address] [place] [address] 73334- 8758 Feb, [facility] [id number] [place] [address] 66111- 3252 Feb, Anxiety F41.9 ; ED (erectile dysfunction) N52.9 ; HTN ( hypertension) I10 ; Panic disorder F41.0 ; Depression F32.9 ; Obsessive compulsive disorder F42 ; BPH (benign prostatic hyperplasia) N40.0 ; Degenerative joint disease of low back M47.9 and Vitamin D deficiency E55.9 [facility] [address], [place] [address]- 8179 Feb, [facility] [id number] [address]- 9613 Dec, [facility] [id number] [place] [address] 56886- 9855 Dec, [facility] [id number] [place] [address] 59130- 0069 Dec, [facility] [id number] [place] [address] 88041- 7040 Nov, Chronic viral hepatitis C B18.2 ; Anxiety F41.9 ; BPH ( benign prostatic hyperplasia) N40.0 ; ED (erectile dysfunction) N52.9 ; HTN ( hypertension) I10 ; Panic disorder F41.0 ; Depression F32.9 ; Obsessive compulsive disorder F42 ; Apnea R06.81 ; Chronic pain G89.29 and Vitamin D deficiency E55.9 [facility] [id number] [place] [address] 57717- 7853 Nov, [facility] [id number] [place] [address] 69668- 7388 Nov, [facility] [id number] [place] [address] 77254- 5380 Nov, [facility] [id number] [place] [address] 98337- 2210 Nov, [facility] [address] [address]- 6771 14 Oct, 2014 [facility] [id number] [place] [address] 33862- 6372 09 Oct, 2014 [facility] [address] [place] [address] 43879- 8793 Oct, [facility] [id number] [place] [address] 459717- 7741 Sep, [facility] [address] [place] [address] 102723- 8416 Sep, [facility] [id number] [place] [address] 42757- 8836 Sep, [facility] [id number] [place] [address] 42538- 4645 Sep, [facility] [id number] [place] [address] 396232- 6156 Aug, Essential hypertension, benign 401.1 ; Obsessive-compulsive disorders 300.3 ; Anxiety state, unspecified 300.00 ; Depressive disorder, not elsewhere classified 311 ; Lumbago 724.2 ; Hepatitis C 070.70 and BPH (benign prostatic hyperplasia) 600.00 [facility] [id number] [place] [address] 92664- 3210 Aug, [facility] [id number] [place] [address] 48585- 2453 Aug, [facility] [id number] [place] [address] 14085- 2126 Jul, [facility] [id number] [place] [address] 13585- 4162 June, [facility] [id number] [place] [address] 38531- 1454 May, Lumbago 724.2 ; Other chronic pain 338.29 and Dizziness 780.4 [facility] [id number] [place] [address] 73719- 9746 May, [facility] [id number] [place] [address] 01166- 7489 May, [facility] [id number] [place] [address] 56429- 6301 Apr, [facility] [id number] [place] [address] 27749- 4225 Apr, [facility] [id number] [place] [address] 60994- 2300 Apr, [facility] [id number] [place] [address] 45416- 6349 Apr, [facility] [place] [facility] [address] [id number] [place] [address]- 4499 Apr, [facility] [place] [facility] [address] [id number] [place] [address]- 7193 Apr, [facility] [place] [facility] [address] [facility] [id number] [place] [address]- 6335 Mar, 2014 [facility] [place] [facility] [address] [facility] [id number] [place] [address]- 5400 Mar, 2014 [facility] [place] [facility] [address] [facility] [id number] [place] [address]- 0222 Mar, 2014 [facility] [place] [facility] [address] [facility] [id number] [place] [address]- 5720 10 Mar, 2014 [facility] [place] [facility] [address] [facility] [id number] [place] [address]- 4232 Mar, 2014 [facility] [place] [facility] [address] [facility] [id number] [place] [address]- 6798 Mar, 2014 [facility] [place] [facility] [address] [facility] [id number] [place] [address]- 8349 Mar, 2014 [facility] [place] [facility] [address] [facility] [id number] [place] [address]- 4672 Mar, [facility] [place] [facility] [address] [facility] [id number] [place] [address]- 0830 Feb, [facility] [place] [facility] [address] [facility] [id number] [address]- 9731 Feb, [facility] [place] [facility] [address] [facility] [id number] [place] [address]- 7028 Jan, [facility] [place] [facility] [address] [facility] [id number] [place] 4332 Jan, [facility] [place] [facility] [address] [facility] [id number] [place] 1842 Jan, [facility] [place] [facility] [address] [id number] [place] [address]- 1042 Jan, [facility] [place] [facility] [address] [id number] [place] 1113 Nov, [facility] [place] [facility] [address] [id number] [place] 4111 Nov, [facility] [place] [facility] [address] [id number] [place] 0901 Nov, [facility] [place] [facility] [address] [id number] [place] [address]- 5908 Nov, [facility] [place] [facility] [address] [id number] [place] [address]- 9218 Nov, [facility] [place] [facility] [address] [id number] [place] [address]- 4298 Nov, [facility] [place] [facility] [address] [id number] [place] [address]- 7843 Nov, [facility] [place] [facility] [address] [id number] [place] [address]- 1634 Nov, [facility] [place] [facility] [address] [id number] [place] [address]- 8967 Nov, [facility] [place] [facility] [address] [id number] [place] [address]- 9398 Nov, [facility] [place] [facility] [address] [id number] [place] [address]- 4306 Nov, [facility] [place] [facility] [address] [id number] [place] 4917 Nov, [facility] [place] [facility] [address] [id number] [place]- 1278 Oct, [facility] [place] [facility] [address] [id number] [place] 1309 Oct, [facility] [place] [facility] [address] [id number] [place] 3831 12 Sep, 2013 [facility] [place] [facility] [address] [id number] [place] [address]- 2506 12 Sep, 2013 [facility] [place] [facility] [address] [id number] [place] [address]- 6236 11 Sep, 2013 [facility] [place] [facility] [address] [id number] [place] [address]- 6316 11 Sep, 2013 [facility] [place] [facility] [address] [id number] [place] [address]- 3463 10 Sep, 2013 [facility] [place] [facility] [address] [id number] [place] [address]- 4954 10 Sep, 2013 [facility] [place] [facility] [address] [id number] [place] [address]- 1340 10 Oct, 2013 [facility] [place] [facility] [address] [id number] [place] [address]- 5792 10 Oct, 2013 [facility] [place] [facility] [address] [id number] [place] [address]- 5780 03 Sep, 2013 [facility] [place] [facility] [address] [id number] [place] [address]- 0510 03 Sep, 2013 [facility] [place] [facility] [address] [id number] [place] [address]- 5005 02 Sep, 2013 [facility] [place] [facility] [address] [id number], [place] [address]- 4335 02 Sep, 2013 [facility] [place] [facility] [address] [id number], [place] [address] 2545 02 Sep, 2013 [facility] [place] [facility] [address] [id number] [place] [address] 2546 02 Sep, 2013 [facility] [place] [facility] [address] [id number] [place] [address]- 0656 02 Sep, 2013 [facility] [place] [facility] [address] [id number] [place] [address]- 2541 02 Sep, 2013 [facility] [place] [facility] [address] [id number] [place] [address]- 4180 Sep, [facility] [place] [facility] [address] [id number] [place] [address]- 2120 Sep, [facility] [place] [facility] [address] [id number] [place] [address]- 2549 Sep, [facility] [place] [facility] [address] [id number] [place] [address]- 7699 Sep, [facility] [place] [facility] [address] [id number] [place] [address]- 9490 Sep, [facility] [place] [facility] [address] [id number] [place] [address]- 9572 Sep, [facility] [place] [facility] [address] [id number] [place] [address]- 4603 Sep, [facility] [place] [facility] [address] [id number] [place] [address]- 7587 Sep, [facility] [place] [facility] [address] [id number] [place] [address]- 0551 Sep, [facility] [place] [facility] [address] [id number] [place] [address]- 1218 Sep, [facility] [place] [facility] [address] [id number] [place] [address]- 2226 Aug, [facility] [place] [facility] [address] [id number] [place] [address]- 8192 Aug, [facility] [place] [facility] [address] [id number] [place] [address]- 5896 Aug, [facility] [place] [facility] [address] [id number] [place] [address]- 1474 Aug, [facility] [place] [facility] [address] [id number] [place] [address]- 9768 Aug, [facility] [place] [facility] [address] [id number] [place] [address]- 8178 Aug, [facility] [place] [facility] [address] [id number] [place] [address]- 0609 Aug, 2013 [facility] [place] [facility] [address] [id number] [place] [address]- 6444 Aug, [facility] [place] [facility] [address] [id number] [place] [address]- 4728 Aug, 2013 [facility] [place] [facility] [address] [id number] [place] [address]- 2031 Aug, [facility] [place] [facility] [address] [id number] [place] [address]- 3200 Aug, [facility] [place] [facility] [address] [id number] [place] [address]- 4700 Aug, [facility] [place] [facility] [address] [id number] [place] [address]- 5368 Aug, [facility] [place] [facility] [address] [id number] [place] [address]- 5578 Jul, [facility] [place] [facility] [address] [id number] [place] [address]- 2841 Jul, [facility] [place] [facility] [address] [id number] [place] [address]- 6568 Jul, [facility] [place] [facility] [address] [id number] [place] [address]- 6663 Jul, [facility] [place] [facility] [address] [id number] [place] [address]- 1763 Jul, [facility] [place] [facility] [address] [id number] [place] [address]- 3523 Jul, [facility] [place] [facility] [address] [id number] [place] [address]- 5501 Jul, [facility] [place] [facility] [address] [id number] [place] [address]- 0842 Jul, [facility] [place] [facility] [address] [id number] [place] [address]- 3488 Jul, [facility] [place] [facility] [address] [id number] [place] [address]- 9657 Jul, [facility] [place] [facility] [address] [id number] [place] [address]- 9568 Jul, [facility] [place] [facility] [address] [id number] [place] [address]- 8321 June, [facility] [place] [facility] [address] [id number] [place] [address]- 3988 June, [facility] [place] [facility] [address] [id number] [place] [address]- 4866 June, [facility] [place] [facility] [address] [id number] [place] [address]- 8331 June, [facility] [place] [facility] [address] [id number] [place] [address]- 1913 June, [facility] [place] [facility] [address] [id number] [place] [address]- 8541 May, [facility] [place] [facility] [address] [id number] [place] [address]- 3336 May, [facility] [place] [facility] [address] [id number] [place] [address] May, [facility] [place] [facility] [address] [id number] [place] [address] May, [facility] [place] [facility] [address] [id number] [place] [address] Apr, [facility] [place] [facility] [address] [id number] [place] [address] Apr, [facility] [place] [facility] [address] [id number] [place] [address] Apr, [facility] [place] [facility] [address] [id number] [place] [address] Apr, [facility] [place] [facility] [address] [id number] [place] [address] Apr, [facility] [place] [facility] [address] [id number] [place] [address] Apr, [facility] [place] [facility] [address] [id number] [place] [address] Apr, [facility] [place] [facility] [address] [id number] [place] [address] Apr, [facility] [place] [facility] [address] [id number] [place] [address] Mar, [facility] [place] [facility] [address] [id number] [place] [address] Mar, [facility] [place] [facility] [address] [id number] [place] [address] Mar, [facility] [place] [facility] [address] [id number] [place] [address] Mar, [facility] [place] [facility] [address] [id number] [place] [address] Feb, [facility] [place] [facility] [address] [id number] [place] [address] Feb, [facility] [place] [facility] [address] [id number] [place] [address] Feb, [facility] [place] [facility] [address] [id number] [place] [address] Feb, [facility] [place] [facility] [address] [id number] [place] [address] Jan, [facility] [place] [facility] [address] [id number] [place] [address] Jan, [facility] [place] [facility] [address] [id number] [place] [address] Jan, [facility] [place] [facility] [address] [id number] [place] [address] Jan, [facility] [place] [facility] [address] [id number] [address] Jan, [facility] [place] [facility] [address] [id number], [place] [address] Dec, [facility] [place] [facility] [address] [facility] [id number] [place] [address] Dec, [facility] [place] [facility] [address] [id number], [place] [address] Dec, [facility] [place] [facility] [address] [id number] [place] [address] Dec, [facility] [place] [facility] [address] [id number], [place] [address] Dec, [facility] [place] [facility] [address] [id number], [place] [address] Dec, [facility] [place] [facility] [address] [id number], [place] [address] Dec, [facility] [place] [facility] [address] [id number], [place] [address] Dec, [facility] [place] [facility] [address] [facility] [id number], [place] [address] Nov, [facility] [place] [facility] [address] [id number], [place] [address] Nov, [facility] [place] [facility] [address] [id number], [place] [address] Nov, [facility] [place] [facility] [address] [id number] [address] Nov, [facility] [place] [facility] [address] [facility] [id number], [place] [address] Nov, [facility] [place] [facility] [address] [facility] [id number][place] [address] Nov, [facility] [place] [facility] [address] [id number] [place] [address] 30 Oct, 2012 [facility] [address] [id number] [place] [address] 20 Oct, 2012 [facility] [address] [id number] [place] [address] 12 Oct, 2012 [facility] [address] [id number] [place] [address] 05 Oct, 2012 [facility] [address] [id number] [place] [address] 14 Sep, 2012 [facility] [address] [id number] [place] [address] Sep, [facility] [address] [id number] [place] [address] Sep, [facility] [address] [id number] [place] [address] Aug, [facility] [address] [id number] [place] [address] Aug, [facility] [address] [id number] [place] [address] Jul, [facility] [address] [id number] [place] [address] Jul, [facility] [address] [id number] [place] [address] June, [facility] [address] [id number] [place] [address] June, [facility] [place] [facility] [address] [id number] [place] [address] June, [facility] [place] [facility] [address] [id number] [place] [address] May, [facility] [address] [id number] [place] [address] Mar, [facility] [address] [facility] [id number] [place] [address] Mar, [facility] [address] [facility] [id number] [address] Mar, [facility] [address] [facility] [id number] [place] [address] Mar, IMMUNIZATIONS No Known Immunizations SOCIAL HISTORY Never Assessed REASON FOR VISIT Controlled refill Request PLAN OF CARE VITAL SIGNS MEDICATIONS Medication Instructions Dosage Frequency Start Date End Date Duration Status Hydrocodone-Acetaminophen 10-325 MG Orally every 6 hrs 1 tablet as needed 6h Aug, 28 days Active RESULTS No Results PROCEDURES [...]
--- OUTSIDE RECORDS SUMMARY | 2017-11-12 21:49 | XMS REPORT ---
Author TINO Resendiz [facility] eClinicalWorks Address Unknown Phone Unavailable Care Team Providers Care Hand Striper Name Role Phone TINO ALTAMIRANO CP Unavailable [...] End Date Status Dosage Diazepam [facility] [address]-34 5 mg Orally Twice a day Feb 16, 2015 1 tablet as needed Guanfacine HCl [facility] 08123616056 1 MG TAKE ONE TABLET BY MOUTH AT BEDTIME Hydrochlorothiazide [facility] [address]-16 25 MG Orally Once a day TAKE ONE TABLET BY MOUTH ONCE DAILY IN THE MORNING Gabapentin [facility] [address]-24 800 MG Orally Three times a day Nov 16, 2014 1 tablet Finasteride [facility] [address]-06 5 MG Orally Once a day TAKE ONE TABLET BY MOUTH DAILY Sertraline HCl [facility] 18476352052 100 MG Orally Once a day 1 tablet Zoloft [facility] 04200573382 50 MG Orally Once a day 1 tablet Results No Known Results Summary Purpose eClinicalWorks Submission
--- OUTSIDE RECORDS SUMMARY | 2017-11-12 21:49 | XMS REPORT ---
Author TINO Resendiz [facility] eClinicalWorks Address Unknown Phone Unavailable Care Team Providers Care Senior Software Engineer Analytics Name Role Phone TINO ALTAMIRANO CP Unavailable [...] Active Problem HTN (hypertension) I10 Active Medications No Known Medications Results No Known Results Summary Purpose eClinicalWorks Submission
--- OUTSIDE RECORDS SUMMARY | 2017-11-12 21:50 | XMS REPORT ---
Author TINO Resendiz [facility] eClinicalWorks Address Unknown Phone Unavailable Care Team Providers Care Date Night Caregiver Name Role Phone TINO ALTAMIRANO CP Unavailable [...] Date End Date Status Dosage Guanfacine HCl [facility] 81889025786 1 MG Orally Once a day TAKE ONE TABLET BY MOUTH AT BEDTIME Results No Known Results Summary Purpose eClinicalWorks Submission
--- OUTSIDE RECORDS SUMMARY | 2017-11-12 21:50 | XMS REPORT ---
Author Author TINO ALTAMIRANO [facility] eClinicalWorks Address Unknown Phone Unavailable Care Team Providers Care Warehouse Checker Name Role Phone TINO ALTAMIRANO CP Unavailable [...] Instructions Start Date End Date Status Dosage Gabapentin [facility] [address]-18 800 MG Orally Three times a day Nov 16, 2014 1 tablet Hydrocodone-Acetaminophen [facility] [address]-09 10-325 MG Orally 4 times a day April 16, 2014 1 tablet as needed Baclofen [facility] [address]-95 10 MG Orally twice daily Nov 16, 2014 Dec 16, 2014 1 tablet with food or milk Results No Known Results Summary Purpose eClinicalWorks Submission
--- OUTSIDE RECORDS SUMMARY | 2017-11-12 21:50 | XMS REPORT ---
Author TINO Resendiz [facility] eClinicalWorks Address Unknown Phone Unavailable Care Team Providers Care Plant Health Care Technician Name Role Phone TINO ALTAMIRANO CP Unavailable [...]
--- OUTSIDE RECORDS SUMMARY | 2017-11-12 21:50 | XMS REPORT ---
Author Author TINO ALTAMIRANO Organization [facility] Address [address] [place] [address] Care Team Providers Care Film Color Tester Name Role Phone ALTAMIRANO TINO Unavailable PROBLEMS Type Condition ICD9-CM Code [id number] Code Onset Dates Condition Status SNOMED Code Problem Chronic viral hepatitis C B18.2 Active 944462131 Problem BPH (benign prostatic hyperplasia) N40.0 Active 145224779 Problem Obsessive compulsive disorder F42 Active 966259168 Problem Back pain at L4-L5 level M54.5 Active 976908026 Problem Degenerative disc disease at L5-S1 level M51.36 Active 31053482 Problem Chronic pain G89.29 Active 24962062 Problem Panic disorder F41.0 Active 547602951 Problem Benign nodular prostatic hyperplasia, presence of lower urinary tract symptoms unspecified N40.0 Active 352903592 Problem Constipation, unspecified constipation type K59.00 Active 56460384 Problem ED (erectile dysfunction) N52.9 Active 583353441 Problem HTN (hypertension) I10 Active 62651403 Problem Other obsessive-compulsive disorder F42.8 Active 889930893 Problem Depression F32.9 Active 02908417 Problem Apnea R06.81 Active 1045367 Problem Anxiety F41.9 Active 42063865 ALLERGIES Unknown Allergies SOCIAL HISTORY No smoking Hx information available PLAN OF CARE VITAL SIGNS MEDICATIONS Medication Instructions Dosage Frequency Start Date End Date Duration Status Hydrocodone-Acetaminophen 10-325 MG Orally every 6 hrs 1 tablet as needed 6h Feb, Feb, 14 days Active RESULTS No Results PROCEDURES No Known procedures IMMUNIZATIONS No Known Immunizations
--- OUTSIDE RECORDS SUMMARY | 2017-11-12 21:50 | XMS REPORT ---
Author TINO Resendiz [facility] eClinicalWorks Address Unknown Phone Unavailable Care Team Providers Care Web Site Admin Name Role Phone TINO ALTAMIRANO CP Unavailable Allergies, Adverse Reactions, Alerts Substance Reaction Event Type Codeine Sulfate itching Drug Allergy Problems Problem Type Condition Code Onset Dates Condition Status Problem Obsessive compulsive disorder F42 Active Problem Panic disorder F41.0 Active Problem Depression F32.9 Active Problem Chronic pain G89.29 Active Problem Chronic viral hepatitis C B18.2 Active Problem Constipation, unspecified constipation type K59.00 Active Problem ED (erectile dysfunction) N52.9 Active Problem HTN (hypertension) I10 Active Problem Anxiety F41.9 Active Problem BPH (benign prostatic hyperplasia) N40.0 Active Assessment Obsessive compulsive disorder F42 Active Assessment ED (erectile dysfunction) N52.9 Active Assessment Chronic pain G89.29 Active Assessment Constipation, unspecified constipation type K59.00 Active Assessment HTN (hypertension) I10 Active Assessment Anxiety F41.9 Active Assessment BPH (benign prostatic hyperplasia) N40.0 Active Assessment Chronic viral hepatitis C B18.2 Active Assessment Panic disorder F41.0 Active Problem Apnea R06.81 Active Medications Medication Code System Code Instructions Start Date End Date Status Dosage Fish Oil [facility] [address]-35 1000 MG Orally Once a day 1 capsule Gabapentin [facility] [address]-24 800 MG Orally Three times a day Nov 16, 2014 1 tablet Diazepam [facility] [address]-04 5 mg Orally Twice a day Feb 16, 2015 1 tablet as needed Sertraline HCl [facility] 27747719004 100 MG Orally Once a day 1 tablet Gabapentin [facility] [address]-18 800 MG Orally Three times a day Sep 18, 2013 1 capsule Calcium & Magnesium Carbonates [facility] [address]95 311-232 mg July 09, 2013 take 2 tablets by Oral route as needed or as directed. 1 time per day Not to exceed 24 tablets in 24hrs Zoloft [facility] 19645590837 50 MG Orally Once a day 1 tablet Vitamin D3 [facility] [address]-97 2000 UNIT Orally Once a day 1 capsule Finasteride [facility] [address]-74 5 mg Orally Once a day TAKE ONE TABLET BY MOUTH DAILY Guanfacine HCl [facility] 19566623316 1 MG Orally Once a day TAKE ONE TABLET BY MOUTH AT BEDTIME Colace [facility] [address]-20 100 MG Orally Once a day 1 capsule as needed Potassium [facility] [address]-68 99 MG Orally Once a day 1 tablet Melatonin [facility] 46560-15944 3-10 MG Orally not defined Hydrocodone-Acetaminophen [facility] [address]-87 10-325 MG Orally 4 times a day April 16, 2014 1 tablet as needed Hydrochlorothiazide [facility] [address]-98 25 MG Orally Once a day TAKE ONE TABLET BY MOUTH ONCE DAILY IN THE MORNING Ocuvite Adult 50+ [facility] [address]-22 Orally not defined Centrum Silver Adult 50+ [facility] [address]-98 Orally not defined Baclofen [facility] [address]-46 10 MG TAKE ONE TABLET BY MOUTH TWICE DAILY WITH FOOD OR MILK Procedures Procedure Coding System Code Date COMPREHEN METABOLIC PANEL CPT-4 81337 Nov 30, 2015 COMPLETE CBC W/AUTO DIFF WBC CPT-4 22387 Nov 30, 2015 Office Visit, Est Pt., Level 4 CPT-4 20535 Nov 30, 2015 VENIPUNCT, ROUTINE* CPT-4 65216 Nov 30, 2015 LIPID PANEL CPT-4 46939 Nov 30, 2015 Vital Signs Date/Time: Nov 30, 2015 Cardiac Monitoring Heart Rate 64 bpm Weight 238.2 lbs Height 76 in BMI 28.99 Index Blood Pressure Diastolic 70 mmHg Blood Pressure Systolic 104 mmHg Results Name Result Date Reference Range Unit Abnormality Flag LIPID PANEL ----HDL Cholesterol 43 10452603 >39 mg/dL ----VLDL Cholesterol Kiran 29 91805594 5-40 mg/dL ----LDL Cholesterol Calc 156 75561046 0-99 mg/dL H ----Cholesterol, Total 228 11185849 100-199 mg/dL H ----Triglycerides 144 82389152 0-149 mg/dL CMP ----Globulin, Total 2.7 62378336 1.5-4.5 g/dL ----eGFR If Africn Am 91 91557047 >59 mL/min/1.73 ----eGFR If NonAfricn Am 79 30519583 >59 mL/min/1.73 ----Albumin, Serum 4.8 82831553 3.6-4.8 g/dL ----Sodium, Serum 140 13314964 136-144 mmol/L ----Protein, Total, Serum 7.5 24297671 6.0-8.5 g/dL ----BUN/Creatinine Ratio 19 88460116 10-22 ----Calcium, Serum 9.4 48025290 8.6-10.2 mg/dL ----AST (SGOT) 16 02287251 0-40 IU/L ----Glucose, Serum 94 28773091 65-99 mg/dL ----Alkaline Phosphatase, S 48 24336168 39-117 IU/L ----Bilirubin, Total 0.4 02358852 0.0-1.2 mg/dL ----Creatinine, Serum 1.03 88907006 0.76-1.27 mg/dL ----A/G Ratio 1.8 40547385 1.1-2.5 ----BUN 20 76475190 8-27 mg/dL ----Carbon Dioxide, Total 26 13670103 18-29 mmol/L ----ALT (SGPT) 23 17603821 0-44 IU/L ----Potassium, Serum 4.5 51478980 3.5-5.2 mmol/L ----Chloride, Serum 96 88844981 97-106 mmol/L L ROUTINE VENIPUNCTURE CBC ----MCHC 33.0 41227237 31.5-35.7 g/dL ----MCH 28.7 65340689 26.6-33.0 pg ----Platelets 299 16461000 150-379 x10E3/uL ----RDW 13.8 34813347 12.3-15.4 % ----Immature Granulocytes 0 96559108 % ----Immature Grans (Abs) 0.0 79684627 0.0-0.1 x10E3/uL ----Lymphs 28 41563008 % ----Monocytes 7 05847554 % ----Neutrophils 62 89538380 % ----Neutrophils (Absolute) 5.1 70937177 1.4-7.0 x10E3/uL ----Hematocrit 47.0 21212116 37.5-51.0 % ----Lymphs (Absolute) 2.3 29950482 0.7-3.1 x10E3/uL ----MCV 87 96327118 79-97 fL ----RBC 5.41 54788301 4.14-5.80 x10E6/uL ----Eos 3 34530411 % ----Basos 0 81818309 % ----Hemoglobin 15.5 55972183 12.6-17.7 g/dL ----Baso (Absolute) 0.0 85321651 0.0-0.2 x10E3/uL ----WBC 8.3 55573001 3.4-10.8 x10E3/uL ----Monocytes(Absolute) 0.6 67566020 0.1-0.9 x10E3/uL ----Eos (Absolute) 0.3 66495706 0.0-0.4 x10E3/uL Summary Purpose eClinicalWorks Submission
--- OUTSIDE RECORDS SUMMARY | 2017-11-12 21:50 | XMS REPORT ---
Author TINO Resendiz [facility] eClinicalWorks Address Unknown Phone Unavailable Care Team Providers Care Internship Coordinator Name Role Phone TINO ALTAMIRANO Unavailable Allergies No Known Allergies Problems Problem [...] Instructions Start Date End Date Status Dosage GuanFACINE HCl [facility] [address]-63 1 MG Orally Once a day Dec 14, 2015 1 tablet Results No Known Results Summary Purpose eClinicalWorks Submission
--- OUTSIDE RECORDS SUMMARY | 2017-11-12 21:50 | XMS REPORT ---
Author ANN MARIE Huntley [facility] eClinicalWorks Address Unknown Phone Unavailable Care Team Providers Care Weatherization Director Name Role Phone ANN MARIE SORENSEN CP Unavailable Allergies No Known Allergies Problems Problem Type Condition ICD-9 Code Onset Dates Condition Status Problem Obsessive-compulsive [...] Start Date End Date Status Dosage Hydrocodone-Acetaminophen [facility] [address]-69 10-325 MG Orally 4 times a day April 16, 2014 1 tablet as needed Results No Known Results Summary Purpose eClinicalWorks Submission
--- OUTSIDE RECORDS SUMMARY | 2017-11-12 21:50 | XMS REPORT ---
Author Author TINO ALTAMIRANO Organization [facility] Address [address] [place] [address] Care Team Providers Care Food Preparer Name Role Phone EVELIA TINO Unavailable PROBLEMS Type Condition ICD9-CM Code [id number] Code Onset Dates Condition Status SNOMED Code Problem Chronic viral hepatitis C B18.2 Active 548491691 Problem BPH (benign prostatic hyperplasia) N40.0 Active 224427480 Problem Obsessive compulsive disorder F42 Active 055040218 Problem Back pain at L4-L5 level M54.5 Active 505491984 Problem Degenerative disc disease at L5-S1 level M51.36 Active 35040627 Problem Chronic pain G89.29 Active 79028278 Problem Panic disorder F41.0 Active 019167865 Problem Benign nodular prostatic hyperplasia, presence of lower urinary tract symptoms unspecified N40.0 Active 879825956 Problem Constipation, unspecified constipation type K59.00 Active 52779580 Problem ED (erectile dysfunction) N52.9 Active 319484321 Problem HTN (hypertension) I10 Active 79895379 Problem Other obsessive-compulsive disorder F42.8 Active 580895277 Problem Depression F32.9 Active 48901544 Problem Apnea R06.81 Active 1344136 Problem Anxiety F41.9 Active 86206227 ALLERGIES Unknown Allergies SOCIAL HISTORY No smoking Hx information available PLAN OF CARE VITAL SIGNS MEDICATIONS Medication Instructions Dosage Frequency Start Date End Date Duration Status Zoloft 50 mg Orally Once a day 1 tablet 24h 90 days Active Sertraline HCl 100 mg Orally Once a day 1 tablet 24h Active RESULTS No Results PROCEDURES No Known procedures IMMUNIZATIONS No Known Immunizations
--- OUTSIDE RECORDS SUMMARY | 2017-11-12 21:50 | XMS REPORT ---
Author Author TINO ALTAMIRANO Organization [facility] Address [address] [place] [address] Care Team Providers Care Harness Fitter Name Role Phone EVELIA TINO Unavailable PROBLEMS Type Condition ICD9-CM Code [id number] Code Onset Dates Condition Status SNOMED Code Problem Chronic viral hepatitis C B18.2 Active 530025997 Problem BPH (benign prostatic hyperplasia) N40.0 Active 542514795 Problem Obsessive compulsive disorder F42 Active 855680579 Problem Back pain at L4-L5 level M54.5 Active 516309069 Problem Degenerative disc disease at L5-S1 level M51.36 Active 31488921 Problem Chronic pain G89.29 Active 97096216 Problem Panic disorder F41.0 Active 443486439 Problem Benign nodular prostatic hyperplasia, presence of lower urinary tract symptoms unspecified N40.0 Active 897222188 Problem Constipation, unspecified constipation type K59.00 Active 53289021 Problem ED (erectile dysfunction) N52.9 Active 450279619 Problem HTN (hypertension) I10 Active 61338165 Problem Other obsessive-compulsive disorder F42.8 Active 710801680 Problem Depression F32.9 Active 33308898 Problem Apnea R06.81 Active 2077711 Problem Anxiety F41.9 Active 20236946 ALLERGIES Unknown Allergies SOCIAL HISTORY No smoking Hx information available PLAN OF CARE VITAL SIGNS MEDICATIONS Unknown Medications RESULTS No Results PROCEDURES No Known procedures IMMUNIZATIONS No Known Immunizations
--- OUTSIDE RECORDS SUMMARY | 2017-11-12 21:50 | XMS REPORT ---
Author TINO Resendiz [facility] eClinicalWorks Address Unknown Phone Unavailable Care Team Providers Care Staff Training And Development Manager Name Role Phone TINO ALTAMIRANO CP Unavailable [...] Start Date End Date Status Dosage Hydrocodone-Acetaminophen [facility] [address]-67 10-325 MG Orally may fill on 4 times a day April 16, 2014 1 tablet as needed Results No Known Results Summary Purpose eClinicalWorks Submission
--- OUTSIDE RECORDS SUMMARY | 2017-11-12 21:50 | XMS REPORT ---
Author TINO Resendiz [facility] eClinicalWorks Address Unknown Phone Unavailable Care Team Providers Care Petroleum Plant Operator Name Role Phone TINO ALTAMIRANO Unavailable Allergies [...] Instructions Start Date End Date Status Dosage Finasteride [facility] [address]-13 5 MG Orally Once a day Oct 14, 2014Nov 1 tablet Results No Known Results Summary Purpose eClinicalWorks Submission
--- OUTSIDE RECORDS SUMMARY | 2017-11-12 21:50 | XMS REPORT ---
Author TINO Resendiz [facility] eClinicalWorks Address Unknown Phone Unavailable Care Team Providers Care Malt House Kiln Operator Name Role Phone TINO ALTAMIRANO CP Unavailable [...] BPH (benign prostatic hyperplasia) N40.0 Active Medications No Known Medications Results No Known Results Summary Purpose eClinicalWorks Submission
--- OUTSIDE RECORDS SUMMARY | 2017-11-12 21:51 | XMS REPORT ---
Author Author TINO Oliver Organization [facility] Address [address] [place] [address] Care Team Providers Care Digital Media Coordinator Name Role Phone TINO Oliver Unavailable PROBLEMS Type Condition ICD9-CM Code ZMG21-QQ Code Onset Dates Condition Status SNOMED Code Problem Chronic viral hepatitis C B18.2 Active 641310778 Problem BPH (benign prostatic hyperplasia) N40.0 Active 731431941 Problem Obsessive compulsive disorder F42 Active 269323728 Problem Back pain at L4-L5 level M54.5 Active 894460323 Problem Degenerative disc disease at L5-S1 level M51.36 Active 64784720 Problem Chronic pain G89.29 Active 49659591 Problem Panic disorder F41.0 Active 796079524 Problem Benign nodular prostatic hyperplasia, presence of lower urinary tract symptoms unspecified N40.0 Active 549134899 Problem Constipation, unspecified constipation type K59.00 Active 42795772 Problem ED (erectile dysfunction) N52.9 Active 034455788 Problem HTN (hypertension) I10 Active 71625882 Problem Other obsessive-compulsive disorder F42.8 Active 047114563 Problem Depression F32.9 Active 74267803 Problem Apnea R06.81 Active 6568497 Problem Anxiety F41.9 Active 14073670 ALLERGIES No Information ENCOUNTERS Encounter Location Date Diagnosis [facility] [id number] [place] [address] 08993- 7285 Mar, [facility] [id number] [place] [address] 48336- 9505 Mar, Controlled substance agreement signed Z79.899 and Degenerative disc disease at L5-S1 level M51.36 [place] [address] [place] [address] 93468- 8329 Mar, Controlled substance agreement signed Z79.899 [place] [id number] [place] [address] 23401- 9004 Feb, [facility] [id number] [place] [address] 00756- 5128 Feb, Degenerative disc disease at L5-S1 level M51.36 [facility] [id number] [place] [address] 40105- 6644 Jan, HTN (hypertension) I10 ; Chronic pain G89.29 and Back pain at L4-L5 level M54.5 [place] [id number] [place] [address] 34860- 5310 Dec, Degenerative disc disease at L5-S1 level M51.36 [facility] [id number] [place] [address] 22372- 3247 Dec, Degenerative disc disease at L5-S1 level M51.36 and Depression F32.9 [facility] [id number] [place] [address] 00999- 7277 Oct, [facility] [id number] [place] [address] 87561- 8045 Sep, Chronic viral hepatitis C B18.2 ; BPH (benign prostatic hyperplasia) N40.0 ; HTN (hypertension) I10 ; Panic disorder F41.0 ; Obsessive compulsive disorder F42 ; Constipation, unspecified constipation type K59.00 and Degenerative disc disease at L5-S1 level M51.36 [place] [id number] [place] [address] 15357- 0493 Aug, Chronic pain G89.29 [facility] [id number] [place] [address] 02483- 6725 Aug, [facility] [id number] [place] [address] 85527- 5399 May, Chronic pain G89.29 and Anxiety F41.9 [place] [id number] [place] [address] 25436- 0162 Apr, Chronic pain G89.29 and Anxiety F41.9 [facility] [id number] [place] [address] 90317- 1381 Apr, Chronic pain G89.29 [facility] [id number] [place] [address] 63955- 5723 Mar, Anxiety F41.9 and Chronic pain G89.29 [place] [address] 94362- 4212 Feb, [facility] [id number] [place] [address] 83867- 5231 Feb, Depression F32.9 [place] [address] 17213- 8664 Feb, [facility] [id number] [place] [address] 56041- 5301 Feb, Chronic viral hepatitis C B18.2 ; ED (erectile dysfunction) N52.9 ; HTN (hypertension) I10 ; Depression F32.9 ; Constipation, unspecified constipation type K59.00 ; Chronic pain G89.29 ; Benign nodular prostatic hyperplasia, presence of lower urinary tract symptoms unspecified N40.0 ; Anxiety F41.9 and Screening cholesterol level Z13.220 [place] [id number] [place] [address] 24439- 8827 Feb, [place] [id number] [place] [address] 29981- 8727 Feb, Chronic pain G89.29 [facility] [id number] [place] [address] 22809- 6171 Feb, Anxiety F41.9 ; Chronic pain G89.29 ; Obsessive compulsive disorder F42 and HTN (hypertension) I10 [facility] [id number] [place] [address] 70951- 6732 Dec, [facility] [id number] [place] [address] 49252- 3881 Dec, [place] [address] [address]- 0253 Dec, Anxiety F41.9 [place] [id number] [place] [address] 21505- 6882 Nov, Chronic viral hepatitis C B18.2 ; Anxiety F41.9 ; HTN ( hypertension) I10 ; Panic disorder F41.0 ; BPH (benign prostatic hyperplasia) N40.0 ; ED (erectile dysfunction) N52.9 ; Obsessive compulsive disorder F42 ; Constipation, unspecified constipation type K59.00 and Chronic pain G89.29 [place] [id number] [place] [address] 71476- 7126 Nov, [facility] [id number] [place] [address] 92982- 1249 Nov, [facility] [id number] [place] [address] 44515- 4582 Oct, [facility] [id number] [place] [address] 49426- 8632 Aug, [facility] [id number] [place] [address] 43014- 1518 Jul, Chronic viral hepatitis C B18.2 ; BPH (benign prostatic hyperplasia) N40.0 ; ED (erectile dysfunction) N52.9 ; HTN (hypertension) I10 ; Panic disorder F41.0 ; Depression F32.9 ; Obsessive compulsive disorder F42 ; Apnea R06.81 ; Other chronic pain G89.29 and Dorsalgia, unspecified M54.9 [place] [address] [place] [address] 48962- 1530 Jul, Chronic pain G89.29 and Anxiety F41.9 [facility] [id number] [place] [address] 97960- 4801 June, Chronic pain G89.29 [place] [id number] [place] [address] 29233- 9919 June, Panic disorder F41.0 and Chronic pain G89.29 [facility] [address] [address]- 4076 14 May, 2015 [facility] [id number] [place] [address] 39353- 3561 May, [facility] [address] [address]- 9356 May, [facility] [id number] [place] [address] 30299 -4073 23 Apr, 2015 Sinusitis J32.9 [facility] [id number] [place] [address] 31657- 7306 Apr, [facility] [id number] [place] [address] 68354- 8796 Apr, [facility] [id number] [place] [address] 39558- 8718 Mar, [facility] [id number] [place] [address] 24202- 2085 Mar, Depression F32.9 ; Panic disorder F41.0 and Obsessive compulsive disorder F42 [facility] [id number] [place] [address] 72372- 9660 Mar, [facility] [address] [place] [address] 92307- 0652 Feb, [facility] [id number] [place] [address] 60971- 8692 Feb, Anxiety F41.9 ; ED (erectile dysfunction) N52.9 ; HTN ( hypertension) I10 ; Panic disorder F41.0 ; Depression F32.9 ; Obsessive compulsive disorder F42 ; BPH (benign prostatic hyperplasia) N40.0 ; Degenerative joint disease of low back M47.9 and Vitamin D deficiency E55.9 [facility] [address] [address]- 2179 Feb, [facility] [address] [address]- 7187 Dec, [facility] [id number] [place] [address] 87427- 5957 Dec, [facility] [id number] [place] [address] 00768- 4944 Dec, [facility] [id number] [place] [address] 00662- 3661 Nov, Chronic viral hepatitis C B18.2 ; Anxiety F41.9 ; BPH ( benign prostatic hyperplasia) N40.0 ; ED (erectile dysfunction) N52.9 ; HTN ( hypertension) I10 ; Panic disorder F41.0 ; Depression F32.9 ; Obsessive compulsive disorder F42 ; Apnea R06.81 ; Chronic pain G89.29 and Vitamin D deficiency E55.9 [facility] [id number] [place] [address] 69444- 4900 Nov, [facility] [id number] [place] [address] 24113- 2945 Nov, [facility] [id number] [place] [address] 87769- 7024 Nov, [facility] [id number] [place] [address] 48550- 3678 Nov, [facility] [address] [address]- 1074 14 Oct, 2014 [facility] [id number] [place] [address] 54779- 5007 09 Oct, 2014 [facility] [address] [place] [address] 90750- 2278 Oct, [facility] [id number] [place] [address] 024249- 2897 Sep, [facility] [address] [place] [address] 952815- 3142 Sep, [facility] [id number] [place] [address] 49962- 3003 Sep, [facility] [id number] [place] [address] 72154- 2156 Sep, [facility] [id number] [place] [address] 544501- 8875 Aug, Essential hypertension, benign 401.1 ; Obsessive-compulsive disorders 300.3 ; Anxiety state, unspecified 300.00 ; Depressive disorder, not elsewhere classified 311 ; Lumbago 724.2 ; Hepatitis C 070.70 and BPH (benign prostatic hyperplasia) 600.00 [facility] [id number] [place] [address] 67072- 3039 Aug, [facility] [id number] [place] [address] 82479- 9895 Aug, [facility] [id number] [place] [address] 96307- 3405 Jul, [facility] [id number] [place] [address] 70918- 9138 June, [facility] [id number] [place] [address] 56521- 6808 May, Lumbago 724.2 ; Other chronic pain 338.29 and Dizziness 780.4 [facility] [id number] [place] [address] 65477- 1645 May, [facility] [id number] [place] [address] 60344- 8372 May, [facility] [id number] [place] [address] 73602- 2790 Apr, [facility] [id number] [place] [address] 58210- 3697 Apr, [facility] [id number] [place] [address] 84357- 6458 Apr, [facility] [id number] [place] [address] 12511- 8714 Apr, [facility] [place] [facility] [address] [id number] [place] [address]- 5940 Apr, [facility] [place] [facility] [address] [id number] [place] [address]- 4847 Apr, [facility] [place] [facility] [address] [facility] [id number] [place] [address]- 0323 Mar, 2014 [facility] [place] [facility] [address] [facility] [id number] [place] [address]- 7980 Mar, 2014 [facility] [place] [facility] [address] [facility] [id number] [place] [address]- 8032 Mar, 2014 [facility] [place] [facility] [address] [facility] [id number] [place] [address]- 4057 10 Mar, 2014 [facility] [place] [facility] [address] [facility] [id number] [place] [address]- 4812 Mar, 2014 [facility] [place] [facility] [address] [facility] [id number] [place] [address]- 9318 Mar, 2014 [facility] [place] [facility] [address] [facility] [id number] [place] [address]- 4192 Mar, 2014 [facility] [place] [facility] [address] [facility] [id number] [place] [address]- 1244 Mar, [facility] [place] [facility] [address] [facility] [id number] [place] [address]- 4831 Feb, [facility] [place] [facility] [address] [facility] [id number] [address]- 4713 Feb, [facility] [place] [facility] [address] [facility] [id number] [place] [address]- 8870 Jan, [facility] [place] [facility] [address] [facility] [id number] [place] 7684 Jan, [facility] [place] [facility] [address] [facility] [id number] [place] 0642 Jan, [facility] [place] [facility] [address] [id number] [place] [address]- 4931 Jan, [facility] [place] [facility] [address] [id number] [place] 6930 Nov, [facility] [place] [facility] [address] [id number] [place] 0190 Nov, [facility] [place] [facility] [address] [id number] [place] 5738 Nov, [facility] [place] [facility] [address] [id number] [place] [address]- 2711 Nov, [facility] [place] [facility] [address] [id number] [place] [address]- 3589 Nov, [facility] [place] [facility] [address] [id number] [place] [address]- 5247 Nov, [facility] [place] [facility] [address] [id number] [place] [address]- 4460 Nov, [facility] [place] [facility] [address] [id number] [place] [address]- 6990 Nov, [facility] [place] [facility] [address] [id number] [place] [address]- 8987 Nov, [facility] [place] [facility] [address] [id number] [place] [address]- 7915 Nov, [facility] [place] [facility] [address] [id number] [place] [address]- 6726 Nov, [facility] [place] [facility] [address] [id number] [place] 4363 Nov, [facility] [place] [facility] [address] [id number] [place] 6841 Oct, [facility] [place] [facility] [address] [id number] [place] 6478 Oct, [facility] [place] [facility] [address] [id number] [place] 1425 12 Sep, 2013 [facility] [place] [facility] [address] [id number] [place] [address]- 7596 12 Sep, 2013 [facility] [place] [facility] [address] [id number] [place] [address]- 1966 11 Sep, 2013 [facility] [place] [facility] [address] [id number] [place] [address]- 8856 11 Sep, 2013 [facility] [place] [facility] [address] [id number] [place] [address]- 4151 10 Sep, 2013 [facility] [place] [facility] [address] [id number] [place] [address]- 4271 10 Sep, 2013 [facility] [place] [facility] [address] [id number] [place] [address]- 8932 10 Oct, 2013 [facility] [place] [facility] [address] [id number] [place] [address]- 0298 10 Oct, 2013 [facility] [place] [facility] [address] [id number] [place] [address]- 8620 03 Sep, 2013 [facility] [place] [facility] [address] [id number] [place] [address]- 0722 03 Sep, 2013 [facility] [place] [facility] [address] [id number] [place] [address]- 5653 02 Sep, 2013 [facility] [place] [facility] [address] [id number] [address]- 3662 02 Sep, 2013 [facility] [place] [facility] [address] [id number] [address] 2541 02 Sep, 2013 [facility] [place] [facility] [address] [id number] [place] [address] 2546 02 Sep, 2013 [facility] [place] [facility] [address] [id number] [place] [address]- 8012 02 Sep, 2013 [facility] [place] [facility] [address] [id number] [place] [address]- 2547 02 Sep, 2013 [facility] [place] [facility] [address] [id number] [place] [address]- 9248 Sep, [facility] [place] [facility] [address] [id number] [place] [address]- 1619 Sep, [facility] [place] [facility] [address] [id number] [place] [address]- 5081 Sep, [facility] [place] [facility] [address] [id number] [place] [address]- 0924 Sep, [facility] [place] [facility] [address] [id number] [place] [address]- 7795 Sep, [facility] [place] [facility] [address] [id number] [place] [address]- 9710 Sep, [facility] [place] [facility] [address] [id number] [place] [address]- 4206 Sep, [facility] [place] [facility] [address] [id number] [place] [address]- 1877 Sep, [facility] [place] [facility] [address] [id number] [place] [address]- 3908 Sep, [facility] [place] [facility] [address] [id number] [place] [address]- 6437 Sep, [facility] [place] [facility] [address] [id number] [place] [address]- 0572 Aug, [facility] [place] [facility] [address] [id number] [place] [address]- 3389 Aug, [facility] [place] [facility] [address] [id number] [place] [address]- 7759 Aug, [facility] [place] [facility] [address] [id number] [place] [address]- 6268 Aug, [facility] [place] [facility] [address] [id number] [place] [address]- 4724 Aug, [facility] [place] [facility] [address] [id number] [place] [address]- 4936 Aug, [facility] [place] [facility] [address] [id number] [place] [address]- 4699 Aug, 2013 [facility] [place] [facility] [address] [id number] [place] [address]- 8454 Aug, [facility] [place] [facility] [address] [id number] [place] [address]- 8178 Aug, 2013 [facility] [place] [facility] [address] [id number] [place] [address]- 0701 Aug, [facility] [place] [facility] [address] [id number] [place] [address]- 0947 Aug, [facility] [place] [facility] [address] [id number] [place] [address]- 4203 Aug, [facility] [place] [facility] [address] [id number] [place] [address]- 9195 Aug, [facility] [place] [facility] [address] [id number] [place] [address]- 7427 Jul, [facility] [place] [facility] [address] [id number] [place] [address]- 8599 Jul, [facility] [place] [facility] [address] [id number] [place] [address]- 6081 Jul, [facility] [place] [facility] [address] [id number] [place] [address]- 6649 Jul, [facility] [place] [facility] [address] [id number] [place] [address]- 5898 Jul, [facility] [place] [facility] [address] [id number] [place] [address]- 5149 Jul, [facility] [place] [facility] [address] [id number] [place] [address]- 2723 Jul, [facility] [place] [facility] [address] [id number] [place] [address]- 8135 Jul, [facility] [place] [facility] [address] [id number] [place] [address]- 4277 Jul, [facility] [place] [facility] [address] [id number] [place] [address]- 5157 Jul, [facility] [place] [facility] [address] [id number] [place] [address]- 9882 Jul, [facility] [place] [facility] [address] [id number] [place] [address]- 4742 June, [facility] [place] [facility] [address] [id number] [place] [address]- 7639 June, [facility] [place] [facility] [address] [id number] [place] [address]- 9784 June, [facility] [place] [facility] [address] [id number] [place] [address]- 2093 June, [facility] [place] [facility] [address] [id number] [place] [address]- 3039 June, [facility] [place] [facility] [address] [id number] [place] [address]- 6900 May, [facility] [place] [facility] [address] [id number] [place] [address]- 1579 May, [facility] [place] [facility] [address] [id number] [place] [address]- 3716 May, [facility] [place] [facility] [address] [id number] [place] [address]- 6619 May, [facility] [place] [facility] [address] [id number] [place] [address]- 9453 Apr, [facility] [place] [facility] [address] [id number] [place] [address] Apr, [facility] [place] [facility] [address] [id number] [place] [address] Apr, [facility] [place] [facility] [address] [id number] [place] [address] Apr, [facility] [place] [facility] [address] [id number] [place] [address] Apr, [facility] [place] [facility] [address] [id number] [place] [address] Apr, [facility] [place] [facility] [address] [id number] [place] [address] Apr, [facility] [place] [facility] [address] [id number] [place] [address] Apr, [facility] [place] [facility] [address] [id number] [place] [address] Mar, [facility] [place] [facility] [address] [id number] [place] [address] Mar, [facility] [place] [facility] [address] [id number] [place] [address] Mar, [facility] [place] [facility] [address] [id number] [place] [address] Mar, [facility] [place] [facility] [address] [id number] [place] [address] Feb, [facility] [place] [facility] [address] [id number] [place] [address] Feb, [facility] [place] [facility] [address] [id number] [place] [address] Feb, [facility] [place] [facility] [address] [id number] [place] [address] Feb, [facility] [place] [facility] [address] [id number] [place] [address] Jan, [facility] [place] [facility] [address] [id number] [place] [address] Jan, [facility] [place] [facility] [address] [id number] [place] [address] Jan, [facility] [place] [facility] [address] [id number] [place] [address]47 Jan, [facility] [place] [facility] [address] [id number] [address] Jan, [facility] [place] [facility] [address] [id number], [place] [address] Dec, [facility] [place] [facility] [address] [facility] [id number] [place] [address]68 Dec, [facility] [place] [facility] [address] [id number], [place] [address] Dec, [facility] [place] [facility] [address] [id number] [place] [address] Dec, [facility] [place] [facility] [address] [id number], [place] [address] Dec, [facility] [place] [facility] [address] [id number], [place] [address] Dec, [facility] [place] [facility] [address] [id number], [place] [address] Dec, [facility] [place] [facility] [address] [id number], [place] [address] Dec, [facility] [place] [facility] [address] [facility] [id number], [place] [address] Nov, [facility] [place] [facility] [address] [id number], [place] [address] Nov, [facility] [place] [facility] [address] [id number], [place] [address] Nov, [facility] [place] [facility] [address] [id number][place] [address] Nov, [facility] [place] [facility] [address] [facility] [id number], [place] [address] Nov, [facility] [place] [facility] [address] [facility] [id number][place] [address] Nov, [facility] [place] [facility] [address] [id number] [place] [address] 30 Oct, 2012 [facility] [address] [id number] [place] [address] 20 Oct, 2012 [facility] [address] [id number] [place] [address] 12 Oct, 2012 [facility] [address] [id number] [place] [address] 05 Oct, 2012 [facility] [address] [id number] [place] [address] 14 Sep, 2012 [facility] [address] [id number] [place] [address] Sep, [facility] [address] [id number] [place] [address] Sep, [facility] [address] [id number] [place] [address] Aug, [facility] [address] [id number] [place] [address] Aug, [facility] [address] [id number] [place] [address]- [address] Jul, [facility] [address] [id number] [place] [address] Jul, [facility] [facility] [address] [id number] [place] [address] June, [facility] [address] [id number] [place] [address] June, [facility] [place] [facility] [address] [id number] [place] [address] June, [facility] [place] [facility] [address] [id number] [place] [address] May, [facility] [address] [id number] [place] [address] Mar, [facility] [address] [facility] [id number] [place] [address] Mar, [facility] [address] [facility] [id number] [address] Mar, [facility] [address] [facility] [id number] [place] [address] Mar, IMMUNIZATIONS No Known Immunizations SOCIAL HISTORY Never Assessed REASON FOR VISIT Medication Denied/Needs appt PLAN OF CARE VITAL SIGNS MEDICATIONS Unknown [...]
--- OUTSIDE RECORDS SUMMARY | 2017-11-12 21:51 | XMS REPORT ---
Author Author CHLOE RANGEL [facility] Address [address] [place] [address] Care Team Providers Care Carbon Accountant Name Role Phone CHLOE RANGEL Unavailable PROBLEMS Type Condition ICD9-CM Code OFE16-FR Code Onset Dates Condition Status SNOMED Code Problem Chronic viral hepatitis C B18.2 Active 471936772 Problem BPH (benign prostatic hyperplasia) N40.0 Active 581218531 Problem Obsessive compulsive disorder F42 Active 819784111 Problem Back pain at L4-L5 level M54.5 Active 937704182 Problem Degenerative disc disease at L5-S1 level M51.36 Active 43124592 Problem Chronic pain G89.29 Active 37343093 Problem Panic disorder F41.0 Active 565668006 Problem Benign nodular prostatic hyperplasia, presence of lower urinary tract symptoms unspecified N40.0 Active 742436212 Problem Constipation, unspecified constipation type K59.00 Active 83239063 Problem ED (erectile dysfunction) N52.9 Active 485071746 Problem HTN (hypertension) I10 Active 08356814 Problem Other obsessive-compulsive disorder F42.8 Active 285073448 Problem Depression F32.9 Active 65507712 Problem Apnea R06.81 Active 5729101 Problem Anxiety F41.9 Active 30945990 ALLERGIES Unknown Allergies SOCIAL HISTORY No smoking Hx information available PLAN OF CARE VITAL SIGNS MEDICATIONS Medication Instructions Dosage Frequency Start Date End Date Duration Status Diazepam 5 mg Orally Twice a day 1 tablet as needed 12h 12 Feb, 2015 28 days Active GuanFACINE HCl ER 1 MG Orally Once a day 1 tablet 24h 08 Dec, 2015 30 day(s) Active Sertraline HCl 100 MG Orally Once a day 1 tablet 24h 30 days Active Finasteride 5 mg Orally Once a day TAKE ONE TABLET BY MOUTH DAILY 24h 90 days Active Baclofen 10 mg Orally 2 times a day TAKE ONE TABLET 12h 8 Mar, 2016 30 days Active Hydrochlorothiazide 25 MG Orally Once a day TAKE ONE TABLET BY MOUTH ONCE DAILY IN THE MORNING 24h 30 days Active Zoloft 50 mg Orally Once a day 1 tablet 24h 30 days Active RESULTS No Results PROCEDURES No Known procedures IMMUNIZATIONS No Known Immunizations
--- OUTSIDE RECORDS SUMMARY | 2017-11-12 21:52 | XMS REPORT ---
Author Author TINO ALTAMIRANO [facility] eClinical[employer] Address Unknown Phone Unavailable Care Team Providers Care Clinical Genetics Laboratory Chief Name Role Phone TINO ALTAMIRANO CP Unavailable [...] Instructions Start Date End Date Status Dosage Hydrochlorothiazide [facility] [address]-97 25 MG orally Once a day TAKE ONE TABLET BY MOUTH IN THE MORNING Results No Known Results Summary Purpose eClinicalWorks Submission
--- OUTSIDE RECORDS SUMMARY | 2017-11-12 21:52 | XMS REPORT ---
Author TINO Resendiz [facility] eClinicalWorks Address Unknown Phone Unavailable Care Team Providers Care Tank Farm Operator Name Role Phone TINO ALTAMIRANO CP [...]
--- OUTSIDE RECORDS SUMMARY | 2017-11-12 21:52 | XMS REPORT ---
Author TINO Resendiz [facility] eClinicalWorks Address Unknown Phone Unavailable Care Team Providers Care Submarine Operator Name Role Phone TINO ALTAMIRANO CP [...] Start Date End Date Status Dosage Hydrocodone-Acetaminophen [facility] [address]-00 10-325 MG Orally may fill on 4 times a day April 16, 2014 Jan 21, 2015 1 tablet as needed Results No Known Results Summary Purpose eClinicalWorks Submission
--- OUTSIDE RECORDS SUMMARY | 2017-11-12 21:52 | XMS REPORT ---
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 Assembler Name Role Phone HAYLEY ARIAS Unavailable PROBLEMS Type Condition ICD9-CM Code XVB68-SU Code Onset Dates Condition Status SNOMED Code Problem Obsessive compulsive disorder F42 Active 543722475 Problem Panic disorder F41.0 Active 693032367 Problem BPH (benign prostatic hyperplasia) N40.0 Active 000763758 Problem Chronic hepatitis C without hepatic coma B18.2 Active 344734420 Problem Back pain at L4-L5 level M54.5 Active 060580496 Problem Constipation, unspecified constipation type K59.00 Active 93062597 Problem Chronic pain G89.29 Active 61415817 Problem Degenerative disc disease at L5-S1 level M51.36 Active 83102526 Problem Benign nodular prostatic hyperplasia, presence of lower urinary tract symptoms unspecified N40.0 Active 808246662 Problem Other obsessive-compulsive disorder F42.8 Active 625054201 Problem HTN (hypertension) I10 Active 75016484 Problem Depression F32.9 Active 63287886 Problem Apnea R06.81 Active 0970105 Problem Anxiety F41.9 Active 27046039 Problem ED (erectile dysfunction) N52.9 Active 280957256 Problem Chronic viral hepatitis C B18.2 Active 870348222 ALLERGIES No Information ENCOUNTERS Encounter Location Date Diagnosis [facility] [place] [id number] [address] Oct, [facility] [place] [id number] [place] [address] 75171- 1125 Aug, Degenerative disc disease at L5-S1 level M51.36 [facility] [place] [id number] [place] [address] 20064- 6714 Aug, [facility] [place] [id number] [place] [address] 62171- 8136 Jul, HTN (hypertension) I10 ; Depression F32.9 ; Degenerative disc disease at L5-S1 level M51.36 ; Benign nodular prostatic hyperplasia, presence of lower urinary tract symptoms unspecified N40.0 ; High risk medication use Z79.899 ; Controlled substance agreement signed Z79.899 ; Anxiety F41.9 ; Chronic hepatitis C without hepatic coma B18.2 and Injury of left knee, initial encounter S89.92XA [facility] [place] [address] [address]- [address] Jul, [place] [address] 94398- 1617 June, Degenerative disc disease at L5-S1 level M51.36 [place] [id number] [place] [address] 26976- 7557 Mar, [place] [address] 9[address]20- 8610 Mar, Controlled substance agreement signed Z79.899 and Degenerative disc disease at L5-S1 level M51.36 [place] [address] 92948- 0965 Mar, Controlled substance agreement signed Z79.899 [place] [id number] [place] [address] 44302- 6274 Feb, [facility] [place] [id number] [place] [address] 36306- 7709 Feb, Degenerative disc disease at L5-S1 level M51.36 [facility] [place] [id number] [place] [address] 15981- 3184 Jan, HTN (hypertension) I10 ; Chronic pain G89.29 and Back pain at L4-L5 level M54.5 [place] [id number] [place] [address] 68352- 0582 Dec, Degenerative disc disease at L5-S1 level M51.36 [place] [address] [place] [address]- 0120 Dec, Degenerative disc disease at L5-S1 level M51.36 and Depression F32.9 [place] [address] 25914- 9216 Oct, [place] [address] 99783- 6258 Sep, Chronic viral hepatitis C B18.2 ; BPH (benign prostatic hyperplasia) N40.0 ; HTN (hypertension) I10 ; Panic disorder F41.0 ; Obsessive compulsive disorder F42 ; Constipation, unspecified constipation type K59.00 and Degenerative disc disease at L5-S1 level M51.36 [place] [address] 89004- 2818 Aug, Chronic pain G89.29 [place] [address] 27708- 6307 Aug, [place] [address] 06532- 4374 May, Chronic pain G89.29 and Anxiety F41.[address] 84206- 9993 Apr, Chronic pain G89.29 and Anxiety F41.9 [place] [address] 51500- 5559 Apr, Chronic pain G89.29 [place] [address] 06017- 9074 Mar, Anxiety F41.9 and Chronic pain G89.29 [place] [address] 82065- 8799 Feb, [place] [address] 30783- 5293 Feb, Depression F32.9 [place] [address] 71274- 0698 Feb, [place] [id number] [place] [address] 09279- 4382 Feb, Chronic viral hepatitis C B18.2 ; ED (erectile dysfunction) N52.9 ; HTN (hypertension) I10 ; Depression F32.9 ; Constipation, unspecified constipation type K59.00 ; Chronic pain G89.29 ; Benign nodular prostatic hyperplasia, presence of lower urinary tract symptoms unspecified N40.0 ; Anxiety F41.9 and Screening cholesterol level Z13.220 [place] [address] 87538- 0757 Feb, [place] [address] 28576- 4700 Feb, Chronic pain G89.29 [place] [address] 36843- 5551 Feb, Anxiety F41.9 ; Chronic pain G89.29 ; Obsessive compulsive disorder F42 and HTN (hypertension) I10 [place] [address] 93023- 4687 Dec, [place] [address] 99959- 6392 Dec, [place] [address] 29337- 5891 Dec, Anxiety F41.9 [place] [address] 54461- 1410 Nov, Chronic viral hepatitis C B18.2 ; Anxiety F41.9 ; HTN ( hypertension) I10 ; Panic disorder F41.0 ; BPH (benign prostatic hyperplasia) N40.0 ; ED (erectile dysfunction) N52.9 ; Obsessive compulsive disorder F42 ; Constipation, unspecified constipation type K59.00 and Chronic pain G89.29 [place] [address] 78549- 3160 Nov, [place] [address] [place] [address]- 2814 05 Nov, 2015 [facility] [place] [id number] [place] [address] 56892- 5244 30 Oct, 2015 [facility] [place] [address] 86160- 2830 Aug, [facility] [place] [address] 58150- 5198 Jul, Chronic viral hepatitis C B18.2 ; BPH (benign prostatic hyperplasia) N40.0 ; ED (erectile dysfunction) N52.9 ; HTN (hypertension) I10 ; Panic disorder F41.0 ; Depression F32.9 ; Obsessive compulsive disorder F42 ; Apnea R06.81 ; Other chronic pain G89.29 and Dorsalgia, unspecified M54.9 [facility] [place] [id number] [place] [address] 69494- 8676 Jul, Chronic pain G89.29 and Anxiety F41.9 [facility] [place] [address] 12899- 2141 June, Chronic pain G89.29 [facility] [place] [address] 75913- 6009 June, Panic disorder F41.0 and Chronic pain G89.29 [facility] [place] [id number] [place] [address] 06235- 8515 14 May, 2015 [facility] [place] [id number] [place] [address] 10867- 3654 14 May, 2015 [facility] [place] [id number] [place] [address] 94219- 4454 12 May, 2015 [facility] [address] 90255 -5731 23 Apr, 2015 Sinusitis J32.9 [facility] [place] [id number] [place] [address] 89416- 4959 18 Apr, 2015 [facility] [place] [address] [place] [address]- 6234 Apr, [facility] [place] [id number] [place] [address] 51208- 4879 Mar, [facility] [place] [address] 24944- 7789 Mar, Depression F32.9 ; Panic disorder F41.0 and Obsessive compulsive disorder F42 [place] [address] 31426- 2874 Mar, [place] [address] 60560- 2957 Feb, [place] [address] 59832- 1791 Feb, Anxiety F41.9 ; ED (erectile dysfunction) N52.9 ; HTN ( hypertension) I10 ; Panic disorder F41.0 ; Depression F32.9 ; Obsessive compulsive disorder F42 ; BPH (benign prostatic hyperplasia) N40.0 ; Degenerative joint disease of low back M47.9 and Vitamin D deficiency E55.9 [place] [id number] [place] [address] 16602- 6545 Feb, [place] [id number] [place] [address] 48713- 6027 Dec, [place] [id number] [place] [address] 81067- 7408 Dec, [place] [id number] [place] [address] 41960- 3168 Dec, [place] [id number] [place] [address] 47523- 3345 Nov, Chronic viral hepatitis C B18.2 ; Anxiety F41.9 ; BPH ( benign prostatic hyperplasia) N40.0 ; ED (erectile dysfunction) N52.9 ; HTN ( hypertension) I10 ; Panic disorder F41.0 ; Depression F32.9 ; Obsessive compulsive disorder F42 ; Apnea R06.81 ; Chronic pain G89.29 and Vitamin D deficiency E55.9 [facility] [place] [address] [address]- 3149 Nov, [facility] [place] [address] 4741 Nov, [facility] [place] [address], [place] [address]- 8838 Nov, [facility] [place] [id number] [place] [address] 923991- 2131 Nov, [facility] [place] [address] [address]- 9660 Oct, [facility] [place] [address] [address]- 3639 Oct, [facility] [place] [address] [address]- 1810 Oct, [facility] [place] [address], [place] [address]- 3244 Sep, [facility] [place] [address], [place] [address]- 2411 Sep, [facility] [place] [address] [address]- 7668 Sep, [facility] [place] [address] [address]- 4512 Sep, [facility] [place] [address] [address]- 2255 Aug, Essential hypertension, benign 401.1 ; Obsessive-compulsive disorders 300.3 ; Anxiety state, unspecified 300.00 ; Depressive disorder, not elsewhere classified 311 ; Lumbago 724.2 ; Hepatitis C 070.70 and BPH (benign prostatic hyperplasia) 600.00 [facility] [place] [address] 0655 Aug, [facility] [place] [id number], [place] [address]- 0568 Aug, [facility] [address] [facility] [id number] [address]- 1490 Jul, [facility] [place] [facility] [address], [place] [address]- 8968 June, [facility] [place] [facility] [id number], [place] [address]- 7135 May, Lumbago 724.2 ; Other chronic pain 338.29 and Dizziness 780.4 [facility] [place] [facility] [address] [facility] [id number] [address]- 7301 May, [facility] [place] [facility] [id number] [place] [address] 00334- 8614 May, [facility] [place] [facility] [address], [place] [address]- 6757 Apr, [facility] [place] [facility] [address], [place] [address]- 6868 Apr, [facility] [place] [facility] [id number] [address]- 8845 Apr, [facility] [place] [facility] [address], [place] [address]- 2859 Apr, [facility] [place] [facility] [address] [address]- 1684 Apr, [facility] [place] [facility] [id number] [address]- 0918 Apr, [facility] [place] [facility] [address] [facility] [id number], [place] [address]- 7110 Mar, [facility] [place] [facility] [address] [facility] [id number] [address]- 8418 Mar, [facility] [place] [facility] [id number] [address]- 0590 Mar, [facility] [place] [facility] [address] [place] [address]- 5113 10 Mar, 2014 [facility] [place] [facility] [address] [id number] [place] [address]- 6763 10 Mar, 2014 [facility] [place] [facility] [address] [id number] [place] [address]- 2954 10 Mar, 2014 [facility] [place] [facility] [address] [id number] [place] [address]- 0226 10 Mar, 2014 [facility] [place] [facility] [address] [id number] [place] [address]- 6384 10 Mar, 2014 [facility] [place] [facility] [address] [facility] [id number] [place] [address]- 9279 Feb, [facility] [place] [facility] [address] [facility] [id number] [place] [address]- 7377 Feb, [facility] [place] [facility] [address] [facility] [id number] [place] [address]- 9196 Jan, [facility] [place] [facility] [address] [id number] [place] [address]- 6846 Jan, [facility] [place] [facility] [address] [facility] [id number] [place] [address]- 7812 02 Jan, 2014 [facility] [place] [facility] [address] [facility] [id number] [place] [address]- 2220 02 Jan, 2014 [facility] [place] [facility] [address] [facility] [id number] [place] [address]- 3920 Nov, [facility] [place] [facility] [address] [id number] [place] [address]- 4841 31 Nov, 2013 [facility] [place] [facility] [address] [facility] [id number] [place] 0031 16 Nov, 2013 [facility] [place] [facility] [address] [facility] [id number] [place]- 5507 16 Nov, 2013 [facility] [place] [facility] [address] [facility] [id number] [place] [address]- 2729 14 Nov, 2013 [facility] [place] [facility] [address] [id number] [place] [address]- 3662 14 Nov, 2013 [facility] [place] [facility] [address] [id number] [place] [address]- 2320 Nov, [facility] [place] [facility] [address] [id number] [place] [address]- 8223 Nov, [facility] [place] [facility] [address] [id number] [place] [address]- 5276 Nov, [facility] [place] [facility] [address] [id number] [place] [address]- 4330 Nov, [facility] [place] [facility] [address] [id number] [place] [address]- 8295 Nov, [facility] [place] [facility] [address] [id number] [place] [address]- 4867 Nov, [facility] [place] [facility] [address] [id number] [place] [address]- 4627 12 Oct, 2013 [facility] [place] [facility] [address] [id number] [place] [address]- 6813 12 Oct, 2013 [facility] [place] [facility] [address] [id number] [place] [address]- 3556 12 Oct, 2013 [facility] [place] [facility] [address] [id number] [address]- 5401 12 Oct, 2013 [facility] [place] [facility] [address] [id number], [place] [address]- 3305 11 Oct, 2013 [facility] [place] [facility] [address] [id number] [place] [address]- 5282 11 Oct, 2013 [facility] [place] [facility] [address] [id number] [place] [address]- 4637 10 Oct, 2013 [facility] [place] [facility] [address] [id number], [place] [address]- 2670 10 Oct, 2013 [facility] [place] [facility] [address] [id number], [place] [address]- 6992 10 Oct, 2013 [facility] [place] [facility] [address] [id number] [place] [address]- 2016 10 Oct, 2013 [facility] [place] [facility] [address] [id number] [place] [address]- 4364 03 Oct, 2013 [facility] [place] [facility] [address] [id number] [place] [address]- 8930 03 Oct, 2013 [facility] [place] [facility] [address] [id number] [place] [address]- 7456 02 Oct, 2013 [facility] [place] [facility] [address] [id number] [place] [address]- 2950 Oct, 2013 [facility] [place] [facility] [address] [id number] [place] [address]- 9514 Oct, 2013 [facility] [place] [facility] [address] [id number] [place] [address]- 0643 Oct, 2013 [facility] [place] [facility] [address] [id number] [place] [address]- 8530 Oct, 2013 [facility] [place] [facility] [address] [id number] [place] [address]- 8165 Oct, 2013 [facility] [place] [facility] [address] [id number] [place] [address]- 2727 Sep, [facility] [place] [facility] [address] [id number] [place] [address]- 4716 Sep, [facility] [place] [facility] [address] [id number], [place] [address]- 0232 Sep, [facility] [place] [facility] [address] [id number] [place] [address]- 2139 Sep, [facility] [place] [facility] [address] [id number] [place] [address]- 8499 Sep, [facility] [place] [facility] [address] [id number] [place] [address]- 1357 Sep, [facility] [place] [facility] [address] [id number] [place] [address]- 0362 Sep, [facility] [place] [facility] [address] [id number] [place] 7123 Sep, [facility] [place] [facility] [address] [id number] [place] [address]- 0703 Sep, [facility] [place] [facility] [address] [id number] [place] [address]- 2764 Sep, [facility] [place] [facility] [address] [id number] [place] [address]- 9994 Aug, [facility] [place] [facility] [address] [id number] [place] [address]- 7287 Aug, [facility] [place] [facility] [address] [id number] [place] [address]- 4058 Aug, [facility] [place] [facility] [address] [id number] [place] [address]- 5756 Aug, [facility] [place] [facility] [address] [id number] [facility] [place] [address]- 0326 Aug, [facility] [place] [facility] [address] [id number] [place] [address]- 8286 Aug, [facility] [place] [facility] [address] [id number] [place] [address]- 4519 Aug, [facility] [place] [facility] [address] [id number] [facility] [place] [address]- 5242 Aug, [facility] [place] [facility] [address] [id number] [place] [address]- 7986 Aug, [facility] [place] [facility] [address] [id number] [place] [address]- 5047 Aug, [facility] [place] [facility] [address] [id number] [place] [address]- 5644 Aug, [facility] [place] [facility] [address] [id number] [place] [address]- 3442 Aug, [facility] [place] [facility] [address] [id number] [place] [address]- 5869 Aug, [facility] [place] [facility] [address] [id number] [place] [address]- 5145 Jul, [facility] [place] [facility] [address] [id number] [place] [address]- 0621 Jul, [facility] [place] [facility] [address] [id number] [place] [address]- 5828 Jul, [facility] [place] [facility] [address] [id number] [place] [address]- 1401 Jul, [facility] [place] [facility] [address] [id number] [place] [address]- 1751 Jul, [facility] [place] [facility] [address] [id number] [place] [address]- 1038 Jul, [facility] [place] [facility] [address] [id number] [place] [address]- 7444 Jul, [facility] [place] [facility] [address] [id number] [place] [address]- 3658 Jul, [facility] [place] [facility] [address] [id number] [place] [address]- 6723 Jul, [facility] [place] [facility] [address] [id number], [place] [address]- 4560 Jul, [facility] [place] [facility] [address] [id number], [place] [address]- 2461 Jul, [facility] [place] [facility] [address] [id number] [place] [address]- 9362 June, [facility] [place] [facility] [address] [id number] [place] [address] June, [facility] [place] [facility] [address] [id number] [place] [address] June, [facility] [place] [facility] [address] [id number] [place] [address] June, [facility] [place] [facility] [address] [id number] [place] [address] June, [facility] [place] [facility] [address] [id number] [place] [address] May, [facility] [place] [facility] [address] [id number] [place] [address] May, [facility] [place] [facility] [address] [id number] [place] [address] May, [facility] [place] [facility] [address] [id number] [place] [address] May, [facility] [place] [facility] [address] [id number] [place] [address] Apr, [facility] [place] [facility] [address] [id number] [place] [address] Apr, [facility] [place] [facility] [address] [id number] [place] [address] Apr, [facility] [place] [facility] [address] [id number] [place] [address] Apr, [facility] [place] [facility] [address] [facility] [id number] [place] [address] Apr, [facility] [place] [facility] [address] [id number] [place] [address] Apr, [facility] [place] [facility] [address] [id number] [place] [address] Apr, [facility] [place] [facility] [address] [id number] [place] [address] Apr, [facility] [place] [facility] [address] [id number] [place] [address] Mar, [facility] [place] [facility] [address] [id number] [place] [address] Mar, [facility] [place] [facility] [address] [id number] [place] [address] Mar, [facility] [place] [facility] [address] [id number] [place] [address] Mar, [facility] [place] [facility] [address] [id number] [place] [address] Feb, [facility] [place] [facility] [address] [id number] [place] [address]- [address] Feb, [facility] [place] [facility] [address] [id number] [place] [address] Feb, [facility] [place] [facility] [address] [id number] [place] [address] Feb, [facility] [place] [facility] [address] [id number] [place] [address] Jan, [facility] [place] [facility] [address] [id number] [place] [address] Jan, [facility] [place] [facility] [address] [id number] [place] [address] Jan, [facility] [place] [facility] [address] [id number], [place] [address] Jan, [facility] [place] [facility] [address] [id number], [place] [address] Jan, [facility] [place] [facility] [address] [id number], [place] [address] Dec, [facility] [place] [facility] [address] [id number] [place] [address] Dec, [facility] [place] [facility] [address] [id number], [place] [address] Dec, [facility] [place] [facility] [address] [id number] [address] Dec, [facility] [place] [facility] [address] [id number], [place] [address] Dec, [facility] [place] [facility] [address] [id number] [place] [address] Dec, [facility] [place] [facility] [address] [id number] [place] [address] Dec, [facility] [place] [facility] [address] [facility] [id number] [place] [address] Dec, [facility] [place] [facility] [address] [id number] [place] [address] Nov, [facility] [place] [facility] [address] [id number] [place] [address] Nov, [facility] [place] [facility] [address] [id number] [place] [address] Nov, [facility] [place] [facility] [address] [facility] [id number], [place] [address] Nov, [facility] [place] [facility] [address] [id number] [place] [address] Nov, [facility] [place] [facility] [address] [facility] [id number] [place] [address]- [address] Nov, [facility] [place] [facility] [address] [facility] [id number] [place] [address]- [address] 30 Oct, 2012 [facility] [place] [facility] [address] [id number] [place] [address] 20 Oct, 2012 [facility] [place] [facility] [address] [id number], [place] [address] 12 Oct, 2012 [facility] [place] [facility] [address] [id number] [place] [address] 05 Oct, 2012 [facility] [place] [facility] [address] [facility] [id number] [place] [address] 14 Sep, 2012 [facility] [place] [facility] [address] [facility] [id number] [place] [address] Sep, [facility] [place] [facility] [id number] [address] Sep, [facility] [place] [id number] [address] Aug, [facility] [place] [address] [facility] [id number] [address] Aug, [facility] [place] [id number], [place] [address] Jul, [facility] [place] [address] [facility] [id number], [place] [address] Jul, [facility] [place] [id number], [place] [address] June, [facility] [place] [id number], [place] [address] June, [facility] [place] [id number] [address] June, [facility] [place] [id number] [address] May, [facility] [place] [id number], [place] [address] Mar, [facility] [place] [id number] [address] Mar, [facility], [place] [id number], [place] [address] Mar, [facility] [place] [address] [id number] [address] Mar, IMMUNIZATIONS No Known Immunizations SOCIAL HISTORY [...]
--- OUTSIDE RECORDS SUMMARY | 2017-11-12 21:53 | XMS REPORT ---
Author Author TINO Oliver Organization [facility] Address [address] [place] [address] Care Team Providers Care Chief Controller Center Name Role Phone TINO Oliver Unavailable PROBLEMS Type Condition ICD9-CM Code KUN95-DL Code Onset Dates Condition Status SNOMED Code Problem Chronic viral hepatitis C B18.2 Active 339109997 Problem BPH (benign prostatic hyperplasia) N40.0 Active 019662320 Problem Obsessive compulsive disorder F42 Active 632107012 Problem Back pain at L4-L5 level M54.5 Active 858922171 Problem Degenerative disc disease at L5-S1 level M51.36 Active 66000763 Problem Chronic pain G89.29 Active 71928166 Problem Panic disorder F41.0 Active 962781447 Problem Benign nodular prostatic hyperplasia, presence of lower urinary tract symptoms unspecified N40.0 Active 139872068 Problem Constipation, unspecified constipation type K59.00 Active 98509700 Problem ED (erectile dysfunction) N52.9 Active 750173479 Problem HTN (hypertension) I10 Active 07998266 Problem Other obsessive-compulsive disorder F42.8 Active 626628412 Problem Depression F32.9 Active 01344747 Problem Apnea R06.81 Active 6839506 Problem Anxiety F41.9 Active 67018558 ALLERGIES No Information ENCOUNTERS Encounter Location Date Diagnosis [facility] [id number] [place] [address] 30943- 8557 Mar, [facility] [id number] [place] [address] 08952- 5309 Mar, Controlled substance agreement signed Z79.899 and Degenerative disc disease at L5-S1 level M51.36 [place] [id number] [place] [address] 24335- 4670 Mar, Controlled substance agreement signed Z79.899 [place] [id number] [place] [address] 04975- 0656 Feb, [facility] [id number] [place] [address] 39580- 3285 Feb, Degenerative disc disease at L5-S1 level M51.36 [facility] [id number] [place] [address] 86533- 0430 Jan, HTN (hypertension) I10 ; Chronic pain G89.29 and Back pain at L4-L5 level M54.5 [facility] [id number] [place] [address] 90641- 2734 Dec, Degenerative disc disease at L5-S1 level M51.36 [facility] [id number] [place] [address] 42512- 8663 Dec, Degenerative disc disease at L5-S1 level M51.36 and Depression F32.9 [facility] [id number] [place] [address] 76955- 7950 Oct, [facility] [id number] [place] [address] 00544- 2652 Sep, Chronic viral hepatitis C B18.2 ; BPH (benign prostatic hyperplasia) N40.0 ; HTN (hypertension) I10 ; Panic disorder F41.0 ; Obsessive compulsive disorder F42 ; Constipation, unspecified constipation type K59.00 and Degenerative disc disease at L5-S1 level M51.36 [place] [id number] [place] [address] 91337- 4308 Aug, Chronic pain G89.29 [place] [id number] [place] [address] 59158- 1748 Aug, [facility] [id number] [place] [address] 98361- 1589 May, Chronic pain G89.29 and Anxiety F41.9 [place] [id number] [place] [address] 26743- 4337 Apr, Chronic pain G89.29 and Anxiety F41.9 [facility] [id number] [place] [address] 64627- 3670 Apr, Chronic pain G89.29 [facility] [id number] [place] [address] 24332- 1183 Mar, Anxiety F41.9 and Chronic pain G89.29 [place] [address] 12339- 9944 Feb, [facility] [id number] [place] [address] 21700- 2678 Feb, Depression F32.9 [place] [address] 03521- 4171 Feb, [place] [id number] [place] [address] 85334- 7789 Feb, Chronic viral hepatitis C B18.2 ; ED (erectile dysfunction) N52.9 ; HTN (hypertension) I10 ; Depression F32.9 ; Constipation, unspecified constipation type K59.00 ; Chronic pain G89.29 ; Benign nodular prostatic hyperplasia, presence of lower urinary tract symptoms unspecified N40.0 ; Anxiety F41.9 and Screening cholesterol level Z13.220 [place] [id number] [place] [address] 43480- 1438 Feb, [place] [id number] [place] [address] 15609- 1103 Feb, Chronic pain G89.29 [facility] [id number] [place] [address] 32388- 0324 Feb, Anxiety F41.9 ; Chronic pain G89.29 ; Obsessive compulsive disorder F42 and HTN (hypertension) I10 [facility] [id number] [place] [address] 74036- 4984 Dec, [facility] [id number] [place] [address] 74420- 1341 Dec, [place] [address] [address]- 3017 Dec, Anxiety F41.9 [place] [id number] [place] [address] 01202- 5330 Nov, Chronic viral hepatitis C B18.2 ; Anxiety F41.9 ; HTN ( hypertension) I10 ; Panic disorder F41.0 ; BPH (benign prostatic hyperplasia) N40.0 ; ED (erectile dysfunction) N52.9 ; Obsessive compulsive disorder F42 ; Constipation, unspecified constipation type K59.00 and Chronic pain G89.29 [place] [id number] [place] [address] 22300- 0252 Nov, [place] [id number] [place] [address] 57339- 4699 Nov, [facility] [id number] [place] [address] 13230- 4438 Oct, [place] [id number] [place] [address] 02033- 2557 Aug, [place] [id number] [place] [address] 82166- 0911 Jul, Chronic viral hepatitis C B18.2 ; BPH (benign prostatic hyperplasia) N40.0 ; ED (erectile dysfunction) N52.9 ; HTN (hypertension) I10 ; Panic disorder F41.0 ; Depression F32.9 ; Obsessive compulsive disorder F42 ; Apnea R06.81 ; Other chronic pain G89.29 and Dorsalgia, unspecified M54.9 [place] [id number] [place] [address] 89184- 1740 Jul, Chronic pain G89.29 and Anxiety F41.9 [place] [id number] [place] [address] 62696- 2825 June, Chronic pain G89.29 [place] [id number] [place] [address] 13866- 8131 June, Panic disorder F41.0 and Chronic pain G89.29 [facility] [address] [address]- 4728 14 May, 2015 [facility] [id number] [place] [address] 30427- 2838 May, [facility] [address] [address]- 1422 May, [facility] [id number] [place] [address] 15557 -4845 23 Apr, 2015 Sinusitis J32.9 [facility] [id number] [place] [address] 82862- 3841 Apr, [facility] [id number] [place] [address] 41361- 9712 Apr, [facility] [id number] [place] [address] 61788- 4705 Mar, [facility] [id number] [place] [address] 51973- 8204 Mar, Depression F32.9 ; Panic disorder F41.0 and Obsessive compulsive disorder F42 [facility] [id number] [place] [address] 59912- 4668 Mar, [facility] [address] [place] [address] 06939- 6473 Feb, [facility] [id number] [place] [address] 46987- 5111 Feb, Anxiety F41.9 ; ED (erectile dysfunction) N52.9 ; HTN ( hypertension) I10 ; Panic disorder F41.0 ; Depression F32.9 ; Obsessive compulsive disorder F42 ; BPH (benign prostatic hyperplasia) N40.0 ; Degenerative joint disease of low back M47.9 and Vitamin D deficiency E55.9 [facility] [address] [address]- 4991 Feb, [facility] [id number] [address]- 9983 Dec, [facility] [id number] [place] [address] 61196- 8896 Dec, [facility] [id number] [place] [address] 64776- 8642 Dec, [facility] [id number] [place] [address] 84830- 3174 Nov, Chronic viral hepatitis C B18.2 ; Anxiety F41.9 ; BPH ( benign prostatic hyperplasia) N40.0 ; ED (erectile dysfunction) N52.9 ; HTN ( hypertension) I10 ; Panic disorder F41.0 ; Depression F32.9 ; Obsessive compulsive disorder F42 ; Apnea R06.81 ; Chronic pain G89.29 and Vitamin D deficiency E55.9 [facility] [id number] [place] [address] 53895- 2357 Nov, [facility] [id number] [place] [address] 82842- 8052 Nov, [facility] [id number] [place] [address] 88057- 6727 Nov, [facility] [id number] [place] [address] 95106- 7251 Nov, [facility] [address] [address]- 7091 14 Oct, 2014 [facility] [id number] [place] [address] 92648- 6451 09 Oct, 2014 [facility] [address] [place] [address] 92889- 8726 Oct, [facility] [id number] [place] [address] 998560- 7473 Sep, [facility] [address] [place] [address] 291868- 1327 Sep, [facility] [id number] [place] [address] 60192- 0721 Sep, [facility] [id number] [place] [address] 84292- 7752 Sep, [facility] [id number] [place] [address] 096651- 9855 Aug, Essential hypertension, benign 401.1 ; Obsessive-compulsive disorders 300.3 ; Anxiety state, unspecified 300.00 ; Depressive disorder, not elsewhere classified 311 ; Lumbago 724.2 ; Hepatitis C 070.70 and BPH (benign prostatic hyperplasia) 600.00 [facility] [id number] [place] [address] 40210- 5064 Aug, [facility] [id number] [place] [address] 32382- 0307 Aug, [facility] [id number] [place] [address] 71345- 4263 Jul, [facility] [id number] [place] [address] 06503- 7983 June, [facility] [id number] [place] [address] 67764- 9053 May, Lumbago 724.2 ; Other chronic pain 338.29 and Dizziness 780.4 [facility] [id number] [place] [address] 74422- 2323 May, [facility] [id number] [place] [address] 69170- 2491 May, [facility] [id number] [place] [address] 46907- 6071 Apr, [facility] [id number] [place] [address] 50111- 2253 Apr, [facility] [id number] [place] [address] 83421- 0132 Apr, [facility] [id number] [place] [address] 46606- 6616 Apr, [facility] [place] [facility] [address] [id number] [place] [address]- 9243 Apr, [facility] [place] [facility] [address] [id number] [place] [address]- 5285 Apr, [facility] [place] [facility] [address] [facility] [id number] [place] [address]- 4845 Mar, 2014 [facility] [place] [facility] [address] [facility] [id number] [place] [address]- 4032 Mar, 2014 [facility] [place] [facility] [address] [facility] [id number] [place] [address]- 5603 Mar, 2014 [facility] [place] [facility] [address] [facility] [id number] [place] [address]- 0115 10 Mar, 2014 [facility] [place] [facility] [address] [facility] [id number] [place] [address]- 9015 Mar, 2014 [facility] [place] [facility] [address] [facility] [id number] [place] [address]- 7573 Mar, 2014 [facility] [place] [facility] [address] [facility] [id number] [place] [address]- 6719 Mar, 2014 [facility] [place] [facility] [address] [facility] [id number] [place] [address]- 8100 Mar, [facility] [place] [facility] [address] [facility] [id number] [place] [address]- 4139 Feb, [facility] [place] [facility] [address] [facility] [id number] [address]- 1107 Feb, [facility] [place] [facility] [address] [facility] [id number] [place] [address]- 2035 Jan, [facility] [place] [facility] [address] [facility] [id number] [place] 1765 Jan, [facility] [place] [facility] [address] [facility] [id number] [place] 6457 Jan, [facility] [place] [facility] [address] [id number] [place] [address]- 3294 Jan, [facility] [place] [facility] [address] [id number] [place] 5006 Nov, [facility] [place] [facility] [address] [id number] [place] 1726 Nov, [facility] [place] [facility] [address] [id number] [place] 3285 Nov, [facility] [place] [facility] [address] [id number] [place] [address]- 6408 Nov, [facility] [place] [facility] [address] [id number] [place] [address]- 4346 Nov, [facility] [place] [facility] [address] [id number] [place] [address]- 6309 Nov, [facility] [place] [facility] [address] [id number] [place] [address]- 5942 Nov, [facility] [place] [facility] [address] [id number] [place] [address]- 3276 Nov, [facility] [place] [facility] [address] [id number] [place] [address]- 6349 Nov, [facility] [place] [facility] [address] [id number] [place] [address]- 6434 Nov, [facility] [place] [facility] [address] [id number] [place] [address]- 2548 Nov, [facility] [place] [facility] [address] [id number] [place] 4938 Nov, [facility] [place] [facility] [address] [id number] [place] 5035 Oct, [facility] [place] [facility] [address] [id number] [place] 0043 Oct, [facility] [place] [facility] [address] [id number] [place] 9972 12 Sep, 2013 [facility] [place] [facility] [address] [id number] [place] [address]- 2916 12 Sep, 2013 [facility] [place] [facility] [address] [id number] [place] [address]- 5676 11 Sep, 2013 [facility] [place] [facility] [address] [id number] [place] [address]- 7686 11 Sep, 2013 [facility] [place] [facility] [address] [id number] [place] [address]- 7614 10 Sep, 2013 [facility] [place] [facility] [address] [id number] [place] [address]- 3898 10 Sep, 2013 [facility] [place] [facility] [address] [id number] [place] [address]- 6598 10 Oct, 2013 [facility] [place] [facility] [address] [id number] [place] [address]- 1719 10 Oct, 2013 [facility] [place] [facility] [address] [id number] [place] [address]- 4719 03 Sep, 2013 [facility] [place] [facility] [address] [id number] [place] [address]- 5268 03 Sep, 2013 [facility] [place] [facility] [address] [id number] [place] [address]- 1659 02 Sep, 2013 [facility] [place] [facility] [address] [id number], [place] [address]- 8901 02 Sep, 2013 [facility] [place] [facility] [address] [id number], [place] [address] 2541 02 Sep, 2013 [facility] [place] [facility] [address] [id number] [place] [address] 2546 02 Sep, 2013 [facility] [place] [facility] [address] [id number] [place] [address]- 0451 02 Sep, 2013 [facility] [place] [facility] [address] [id number] [place] [address]- 2549 02 Sep, 2013 [facility] [place] [facility] [address] [id number] [place] [address]- 6857 Sep, [facility] [place] [facility] [address] [id number] [place] [address]- 2774 Sep, [facility] [place] [facility] [address] [id number] [place] [address]- 9004 Sep, [facility] [place] [facility] [address] [id number] [place] [address]- 0395 Sep, [facility] [place] [facility] [address] [id number] [place] [address]- 7806 Sep, [facility] [place] [facility] [address] [id number] [place] [address]- 6102 Sep, [facility] [place] [facility] [address] [id number] [place] [address]- 0335 Sep, [facility] [place] [facility] [address] [id number] [place] [address]- 1166 Sep, [facility] [place] [facility] [address] [id number] [place] [address]- 6099 Sep, [facility] [place] [facility] [address] [id number] [place] [address]- 3695 Sep, [facility] [place] [facility] [address] [id number] [place] [address]- 8796 Aug, [facility] [place] [facility] [address] [id number] [place] [address]- 0398 Aug, [facility] [place] [facility] [address] [id number] [place] [address]- 9435 Aug, [facility] [place] [facility] [address] [id number] [place] [address]- 7243 Aug, [facility] [place] [facility] [address] [id number] [place] [address]- 9923 Aug, [facility] [place] [facility] [address] [id number] [place] [address]- 7965 Aug, [facility] [place] [facility] [address] [id number] [place] [address]- 5338 Aug, 2013 [facility] [place] [facility] [address] [id number] [place] [address]- 1309 Aug, [facility] [place] [facility] [address] [id number] [place] [address]- 3280 Aug, 2013 [facility] [place] [facility] [address] [id number] [place] [address]- 8914 Aug, [facility] [place] [facility] [address] [id number] [place] [address]- 8168 Aug, [facility] [place] [facility] [address] [id number] [place] [address]- 8794 Aug, [facility] [place] [facility] [address] [id number] [place] [address]- 8245 Aug, [facility] [place] [facility] [address] [id number] [place] [address]- 1375 Jul, [facility] [place] [facility] [address] [id number] [place] [address]- 3545 Jul, [facility] [place] [facility] [address] [id number] [place] [address]- 6888 Jul, [facility] [place] [facility] [address] [id number] [place] [address]- 9822 Jul, [facility] [place] [facility] [address] [id number] [place] [address]- 9078 Jul, [facility] [place] [facility] [address] [id number] [place] [address]- 7108 Jul, [facility] [place] [facility] [address] [id number] [place] [address]- 4118 Jul, [facility] [place] [facility] [address] [id number] [place] [address]- 4378 Jul, [facility] [place] [facility] [address] [id number] [place] [address]- 3294 Jul, [facility] [place] [facility] [address] [id number] [place] [address]- 5236 Jul, [facility] [place] [facility] [address] [id number] [place] [address]- 7197 Jul, [facility] [place] [facility] [address] [id number] [place] [address]- 6837 June, [facility] [place] [facility] [address] [id number] [place] [address]- 2523 June, [facility] [place] [facility] [address] [id number] [place] [address]- 9653 June, [facility] [place] [facility] [address] [id number] [place] [address]- 4443 June, [facility] [place] [facility] [address] [id number] [place] [address] June, [facility] [place] [facility] [address] [id number] [place] [address] May, [facility] [place] [facility] [address] [id number] [place] [address] May, [facility] [place] [facility] [address] [id number] [place] [address] May, [facility] [place] [facility] [address] [id number] [place] [address] May, [facility] [place] [facility] [address] [id number] [place] [address] Apr, [facility] [place] [facility] [address] [id number] [place] [address] Apr, [facility] [place] [facility] [address] [id number] [place] [address]- [address] Apr, [facility] [place] [facility] [address] [id number] [place] [address] Apr, [facility] [place] [facility] [address] [id number] [place] [address] Apr, [facility] [place] [facility] [address] [id number] [place] [address]- 9566 Apr, [facility] [place] [facility] [address] [id number] [place] [address]- [address] Apr, [facility] [place] [facility] [address] [id number] [place] [address]- [address] Apr, [facility] [place] [facility] [address] [id number] [place] [address]- [address] Mar, [facility] [place] [facility] [address] [id number] [place] [address]- [address] Mar, [facility] [place] [facility] [address] [id number] [place] [address]- [address] Mar, [facility] [place] [facility] [address] [id number] [place] [address]- [address] Mar, [facility] [place] [facility] [address] [id number] [place] [address] 1410 Feb, [facility] [place] [facility] [address] [id number] [place] [address]- [address] Feb, [facility] [place] [facility] [address] [id number] [place] [address]- [address] Feb, [facility] [place] [facility] [address] [id number] [place] [address]- [address] Feb, [facility] [place] [facility] [address] [id number] [place] [address] Jan, [facility] [place] [facility] [address] [id number] [place] [address]- 100[address] Jan, [facility] [place] [facility] [address] [id number] [place] [address]- [address] Jan, [facility] [place] [facility] [address] [id number] [place] [address]- 9147 Jan, [facility] [place] [facility] [address] [id number][place] [address] Jan, [facility] [place] [facility] [address] [id number], [place] [address] Dec, [facility] [place] [facility] [address] [facility] [id number] [place] [address]- 9939 Dec, [facility] [place] [facility] [address] [id number], [place] [address] Dec, [facility] [place] [facility] [address] [id number] [place] [address] Dec, [facility] [place] [facility] [address] [id number], [place] [address]- [address] Dec, [facility] [place] [facility] [address] [id number], [place] [address] Dec, [facility] [place] [facility] [address] [id number], [place] [address] Dec, [facility] [place] [facility] [address] [id number], [place] [address] Dec, [facility] [place] [facility] [address] [facility] [id number], [place] [address]- 9360 Nov, [facility] [place] [facility] [address] [id number], [place] [address] 9737 Nov, [facility] [place] [facility] [address] [id number], [place] [address]- [address]234 Nov, [facility] [place] [facility] [address] [id number][place] [address] Nov, [facility] [place] [facility] [address] [facility] [id number], [place] [address]- [address] Nov, [facility] [place] [facility] [address] [facility] [id number][place] [address] Nov, [facility] [place] [facility] [address] [id number] [place] [address]- [address] 30 Oct, 2012 [facility] [address] [id number] [place] [address]- [address] 20 Oct, 2012 [facility] [address] [id number] [place] [address]- [address]6 12 Oct, 2012 [facility] [address] [id number] [place] [address]- [address] 05 Oct, 2012 [facility] [address] [id number] [place] [address]- [address] 14 Sep, 2012 [facility] [address] [id number] [place] [address]- 1871 Sep, [facility] [address] [id number] [place] [address]- [address] Sep, [facility] [address] [id number] [place] [address]- [address] Aug, [facility] [address] [id number] [place] [address] Aug, [facility] [address] [id number] [place] [address] Jul, [facility] [address] [id number] [place] [address] Jul, [facility] [address] [id number] [place] [address] June, [facility] [address] [id number] [place] [address] June, [facility] [place] [facility] [address] [id number] [place] [address] June, [facility] [place] [facility] [address] [id number] [place] [address] May, [facility] [address] [id number] [place] [address] Mar, [facility] [address] [facility] [id number] [place] [address] Mar, [facility] [address] [facility] [id number], [place] [address] Mar, [facility] [address] [facility] [id number] [place] [address] Mar, IMMUNIZATIONS No Known Immunizations SOCIAL HISTORY Never Assessed REASON FOR VISIT Eye Exam PLAN OF CARE VITAL SIGNS MEDICATIONS Unknown [...]
--- OUTSIDE RECORDS SUMMARY | 2017-11-12 21:53 | XMS REPORT | Continuity of Care Document ---
Author Author [facility]ly [facility] Address Unknown Phone Unavailable Allergies There is no data. Medications There is no data. Problems Date Dx Coded Attending Type Code Diagnosis Diagnosed By 03/08/2012 RICH GARCÍA MD 300.00 anxiety 03/08/2012 RICH GARCÍA MD 302.72 MALE ERECTILE DISORDER 03/08/2012 RICH GARCÍA MD 338.29 CHRONIC PAIN 03/08/2012 RICH GARCÍA MD 401.1 ESSENTIAL HYPERTENSION BENIGN 03/08/2012 RICH GARCÍA MD 600.00 BENIGN PROSTATIC HYPERTROPHY 03/08/2012 300.00 anxiety 03/08/2012 302.72 MALE ERECTILE DISORDER 03/08/2012 338.29 CHRONIC PAIN 03/08/2012 401.1 ESSENTIAL HYPERTENSION BENIGN 03/08/2012 600.00 BENIGN PROSTATIC HYPERTROPHY 03/08/2012 300.00 anxiety 03/08/2012 302.72 MALE ERECTILE DISORDER 03/08/2012 338.29 CHRONIC PAIN 03/08/2012 401.1 ESSENTIAL HYPERTENSION BENIGN 03/08/2012 600.00 BENIGN PROSTATIC HYPERTROPHY 03/08/2012 OLE CULVER DO 300.00 anxiety 03/08/2012 OLE CULVER DO 302.72 MALE ERECTILE DISORDER 03/08/2012 OEL CULVER DO 338.29 CHRONIC PAIN 03/08/2012 OLE CULVER DO 401.1 ESSENTIAL HYPERTENSION BENIGN 03/08/2012 OLE CULVER DO 600.00 BENIGN PROSTATIC HYPERTROPHY 03/08/2012 OLE CULVER DO 300.00 anxiety 03/08/2012 OLE CULVER DO 302.72 MALE ERECTILE DISORDER 03/08/2012 OLE CULVER DO 338.29 CHRONIC PAIN 03/08/2012 OLE CULVER DO 401.1 ESSENTIAL HYPERTENSION BENIGN 03/08/2012 OLE CULVER DO 600.00 BENIGN PROSTATIC HYPERTROPHY 03/08/2012 ANN MARIE SORENSEN MD 300.00 anxiety 03/08/2012 ANN MARIE SORENSEN MD 302.72 MALE ERECTILE DISORDER 03/08/2012 ANN MARIE SORENSEN MD 338.29 CHRONIC PAIN 03/08/2012 ANN MARIE SORENSEN MD 401.1 ESSENTIAL HYPERTENSION BENIGN 03/08/2012 ANN MARIE SORENSEN MD 600.00 BENIGN PROSTATIC HYPERTROPHY 03/08/2012 MAGEN TRAVIS CHRIS S 300.00 anxiety 03/08/2012 MAGEN TRAVIS CHRIS S 302.72 MALE ERECTILE DISORDER 03/08/2012 MAGEN TRAVIS CHRIS S 338.29 CHRONIC PAIN 03/08/2012 CHRIS US JR S 401.1 ESSENTIAL HYPERTENSION BENIGN 03/08/2012 CHRIS US JR S 600.00 BENIGN PROSTATIC HYPERTROPHY 03/08/2012 RICH GARCÍA MD 300.00 anxiety 03/08/2012 RICH GARCÍA MD 302.72 MALE ERECTILE DISORDER 03/08/2012 RICH GARCÍA MD 338.29 CHRONIC PAIN 03/08/2012 RICH GARCÍA MD 401.1 ESSENTIAL HYPERTENSION BENIGN 03/08/2012 RICH GARCÍA MD 600.00 BENIGN PROSTATIC HYPERTROPHY 03/08/2012 ASHLEY LOMELI PHD 300.00 anxiety 03/08/2012 ASHLEY LOMELI PHD 302.72 MALE ERECTILE DISORDER 03/08/2012 ASHLEY LOMELI PHD 338.29 CHRONIC PAIN 03/08/2012 ASHLEY LOMELI PHD 401.1 ESSENTIAL HYPERTENSION BENIGN 03/08/2012 ASHLEY LOMELI PHD 600.00 BENIGN PROSTATIC HYPERTROPHY 03/08/2012 ANN MARIE SORENSEN MD 300.00 anxiety 03/08/2012 ANN MARIE SORENSEN MD 302.72 MALE ERECTILE DISORDER 03/08/2012 ANN MARIE SORENSEN MD 338.29 CHRONIC PAIN 03/08/2012 ANN MARIE SORENSEN MD 401.1 ESSENTIAL HYPERTENSION BENIGN 03/08/2012 ANN MARIE SORENSEN MD 600.00 BENIGN PROSTATIC HYPERTROPHY 03/08/2012 MAGEN TRAVIS CHRIS S 300.00 anxiety 03/08/2012 CHRIS US JR S 302.72 MALE ERECTILE DISORDER 03/08/2012 CHRIS US JR S 338.29 CHRONIC PAIN 03/08/2012 CHRIS US JR S 401.1 ESSENTIAL HYPERTENSION BENIGN 03/08/2012 MAGEN TRAVIS CHRIS S 600.00 BENIGN PROSTATIC HYPERTROPHY 03/08/2012 ASHLEY LOMELI PHD 300.00 anxiety 03/08/2012 ASHLEY LOMELI PHD 302.72 MALE ERECTILE DISORDER 03/08/2012 ASHLEY LOMELI PHD 338.29 CHRONIC PAIN 03/08/2012 ASHLEY LOMELI PHD 401.1 ESSENTIAL HYPERTENSION BENIGN 03/08/2012 ASHLEY LOMELI PHD 600.00 BENIGN PROSTATIC HYPERTROPHY 03/08/2012 MARYANNE ZAVALETA ERICK J 300.00 anxiety 03/08/2012 MARYANNE ZAVALETA ERICK J 302.72 MALE ERECTILE DISORDER 03/08/2012 MARYANNE ZAVALETA ERICK J 338.29 CHRONIC PAIN 03/08/2012 MARYANNE ZAVALETA ERICK J 401.1 ESSENTIAL HYPERTENSION BENIGN 03/08/2012 MARYANNE ZAVALETA REICK J 600.00 BENIGN PROSTATIC HYPERTROPHY 03/08/2012 MARYANNE ZAVALETA ERICK J 300.00 anxiety 03/08/2012 ERICK MADDEN APRN J 302.72 MALE ERECTILE DISORDER 03/08/2012 MARYANNE ZAVALETA ERICK J 338.29 CHRONIC PAIN 03/08/2012 MARYANNE ZAVALETA ERICK J 401.1 ESSENTIAL HYPERTENSION BENIGN 03/08/2012 MAGGIE MADDEN APRNA J 600.00 BENIGN PROSTATIC HYPERTROPHY 03/08/2012 ASHLEY LOMELI PHD 300.00 anxiety 03/08/2012 ASHLEY LOMELI PHD 302.72 MALE ERECTILE DISORDER 03/08/2012 ASHLEY LOMELI PHD 338.29 CHRONIC PAIN 03/08/2012 ASHLEY LOMELI PHD 401.1 ESSENTIAL HYPERTENSION BENIGN 03/08/2012 ASHLEY LOMELI PHD 600.00 BENIGN PROSTATIC HYPERTROPHY 03/08/2012 ASHLEY LOMELI PHD 300.00 anxiety 03/08/2012 ASHLEY LOMELI PHD 302.72 MALE ERECTILE DISORDER 03/08/2012 ASHLEY LOMELI PHD 338.29 CHRONIC PAIN 03/08/2012 ASHLEY LOMELI PHD 401.1 ESSENTIAL HYPERTENSION BENIGN 03/08/2012 ASHLEY LOMELI PHD 600.00 BENIGN PROSTATIC HYPERTROPHY 03/08/2012 DINORA MADDEN APRNINDA J 300.00 anxiety 03/08/2012 ERICK MADDEN APRN J 302.72 MALE ERECTILE DISORDER 03/08/2012 MARYANNE ZAVALETA ERICK J 338.29 CHRONIC PAIN 03/08/2012 MARYANNE ZAVALETA ERICK J 401.1 ESSENTIAL HYPERTENSION BENIGN 03/08/2012 MARYANNE ZAVALETA ERICK J 600.00 BENIGN PROSTATIC HYPERTROPHY 03/08/2012 JENN PUBLICITY DIRECTOR, MANA R 300.00 anxiety 03/08/2012 JENN PUBLICITY DIRECTOR, MANA R 302.72 MALE ERECTILE DISORDER 03/08/2012 JENN PUBLICITY DIRECTOR, MANA R 338.29 CHRONIC PAIN 03/08/2012 JENN ZAVALETA, MANA R 401.1 ESSENTIAL HYPERTENSION BENIGN 03/08/2012 JENN ZAVALETA, MANA R 600.00 BENIGN PROSTATIC HYPERTROPHY 03/08/2012 MARYANNE ZAVALETA, ERICK J 300.00 anxiety 03/08/2012 MARYANNE ZAVALETA, ERICK J 302.72 MALE ERECTILE DISORDER 03/08/2012 MARYANNE BEYERN, ERICK J 338.29 CHRONIC PAIN 03/08/2012 MARYANNE ZAVALETA, ERICK J 401.1 ESSENTIAL HYPERTENSION BENIGN 03/08/2012 MARYANNE ZAVALEAT, ERICK J 600.00 BENIGN PROSTATIC HYPERTROPHY 03/08/2012 ASHLEY LOMELI PHD 300.00 anxiety 03/08/2012 ASHLEY LOMELI PHD 302.72 MALE ERECTILE DISORDER 03/08/2012 ASHLEY LOMELI PHD 338.29 CHRONIC PAIN 03/08/2012 ASHLEY LOMELI PHD 401.1 ESSENTIAL HYPERTENSION BENIGN 03/08/2012 ARMANI AUGUSTINE, ASHLEY Neal 600.00 BENIGN PROSTATIC HYPERTROPHY 03/08/2012 JENN BEYERN, MANA R 300.00 anxiety 03/08/2012 JENN ZAVALETA, MANA R 302.72 MALE ERECTILE DISORDER 03/08/2012 JENN ZAVALETA, MANA R 338.29 CHRONIC PAIN 03/08/2012 JENN ZAVALETA, MANA R 401.1 ESSENTIAL HYPERTENSION BENIGN 03/08/2012 JENN ZAVALETA, MANA R 600.00 BENIGN PROSTATIC HYPERTROPHY 03/08/2012 MARYANNE ZAVALETA, ERICK J 300.00 anxiety 03/08/2012 MARYANNE ZAVALETA, ERICK J 302.72 MALE ERECTILE DISORDER 03/08/2012 MARYANNE ZAVALETA, ERICK J 338.29 CHRONIC PAIN 03/08/2012 MARYANNE ZAVALETA, ERICK J 401.1 ESSENTIAL HYPERTENSION BENIGN 03/08/2012 MARYANNE ZAVALETA, ERICK J 600.00 BENIGN PROSTATIC HYPERTROPHY 03/12/2012 RAQUEL HIGGINS, RICH Jones 070.70 HEPATITIS C, UNSPEC 03/12/2012 070.70 HEPATITIS, C VIRUS 03/12/2012 070.70 HEPATITIS, C VIRUS 03/12/2012 OLE CULVER DO 070.70 HEPATITIS, C VIRUS 03/12/2012 OLE CULVER DO 070.70 HEPATITIS, C VIRUS 03/12/2012 ANN MARIE SORENSEN MD 070.70 HEPATITIS, C VIRUS 03/12/2012 CHRIS US JR 070.70 HEPATITIS, C VIRUS 03/12/2012 RICH GARCÍA MD 070.70 HEPATITIS, C VIRUS 03/12/2012 ARMANI PHD, ASHLEY Neal 070.70 HEPATITIS, C VIRUS 03/12/2012 ANN MARIE SORENSEN MD 070.70 HEPATITIS, C VIRUS 03/12/2012 CHRIS US JR 070.70 HEPATITIS, C VIRUS 03/12/2012 ARMANI PHD, ASHLEY Neal 070.70 HEPATITIS, C VIRUS 03/12/2012 MARYANNE ZAVALETA, ERICK J 070.70 HEPATITIS, C VIRUS 03/12/2012 MARYANNE BEYERN, ERICK J 070.70 HEPATITIS, C VIRUS 03/12/2012 ARMANI PHD, ASHLEY Neal 070.70 HEPATITIS, C VIRUS 03/12/2012 ARMANI PHD, ASHLEY Neal 070.70 HEPATITIS, C VIRUS 03/12/2012 MARYANNE PUBLICITY DIRECTOR, ERICK J 070.70 HEPATITIS, C VIRUS 03/12/2012 JENN PUBLICITY DIRECTOR, MANA R 070.70 HEPATITIS, C VIRUS 03/12/2012 MARYANNE BEYERN, ERICK J 070.70 HEPATITIS, C VIRUS 03/12/2012 ARMANI PHD, ASHLEY Neal 070.70 HEPATITIS, C VIRUS 03/12/2012 JENN BEYERN, MANA R 070.70 HEPATITIS, C VIRUS 03/12/2012 MRAYANNE BEYERN, ERICK J 070.70 HEPATITIS, C VIRUS 10/25/2012 OLE CULVER DO 786.03 APNEA 10/25/2012 OLE CULVER DO V58.69 MEDICATION HIGH RISK 10/25/2012 OLE CULVER DO 786.03 APNEA 10/25/2012 OLE CULVER DO V58.69 MEDICATION HIGH RISK 10/25/2012 ANN MARIE SORENSEN MD 786.03 APNEA 10/25/2012 ANN MARIE SORENSEN MD V58.69 MEDICATION HIGH RISK 10/25/2012 CHRIS US JR 786.03 APNEA 10/25/2012 CHRIS US JR V58.69 MEDICATION HIGH RISK 10/25/2012 RICH GARCÍA MD 786.03 APNEA 10/25/2012 RICH GARCÍA MD V58.69 MEDICATION HIGH RISK 10/25/2012 ARMANI AUGUSTINE, ASHLEY Neal 786.03 APNEA 10/25/2012 ARMANI AUGUSTINE, ASHLEY Neal V58.69 MEDICATION HIGH RISK 10/25/2012 ANN MARIE SORENSEN MD 786.03 APNEA 10/25/2012 ANN MARIE SORENSEN MD V58.69 MEDICATION HIGH RISK 10/25/2012 CHRIS US JR 786.03 APNEA 10/25/2012 CHRIS US JR V58.69 MEDICATION HIGH RISK 10/25/2012 ARMANI AUGUSTINE, ASHLEY Neal 786.03 APNEA 10/25/2012 ARMAIN AUGUSTINE, ASHLEY Neal V58.69 MEDICATION HIGH RISK 10/25/2012 MAGGIE MADDEN APRNA J 786.03 APNEA 10/25/2012 MAGGIE MADDEN APRNA J V58.69 MEDICATION HIGH RISK 10/25/2012 MARYANNE ZAVALETA ERICK J 786.03 APNEA 10/25/2012 MAGGIE MADDEN APRNA J V58.69 MEDICATION HIGH RISK 10/25/2012 ARMANI AUGUSTINE, ASHLEY Neal 786.03 APNEA 10/25/2012 ARMANI AUGUSTINE, ASHLEY Neal V58.69 MEDICATION HIGH RISK 10/25/2012 ARMANI AUGUSITNE, ASHLEY Neal 786.03 APNEA 10/25/2012 ARMANI AUGUSTINE, ASHLEY Neal V58.69 MEDICATION HIGH RISK 10/25/2012 MARYANNE ZAVALETA ERICK J 786.03 APNEA 10/25/2012 MARYANNE ZAVALETA ERICK J V58.69 MEDICATION HIGH RISK 10/25/2012 JENN ZAVALETA, MANA R 786.03 APNEA 10/25/2012 JENN ZAVALETA, MANA R V58.69 MEDICATION HIGH RISK 10/25/2012 MARYANNE ZAVALETA ERICK J 786.03 APNEA 10/25/2012 MARYANNE ZAVALETA ERICK J V58.69 MEDICATION HIGH RISK 10/25/2012 ARMANI AUGUSTINE, ASHLEY Neal 786.03 APNEA 10/25/2012 ARMANI AUGUSTINE, ASHLEY Neal V58.69 MEDICATION HIGH RISK 10/25/2012 JENN PUBLICITY DIRECTOR, MANA R 786.03 APNEA 10/25/2012 JENN ZAVALETA, MANA R V58.69 MEDICATION HIGH RISK 10/25/2012 MARYANNE ZAVALETA ERICK J 786.03 APNEA 10/25/2012 ERICK MADDEN APRN V58.69 MEDICATION HIGH RISK 12/06/2012 ANN MARIE SORENSEN MD 311 MO DEPRESS NOS 12/06/2012 CHRIS US JR 311 MO DEPRESS NOS 12/06/2012 RICH GARCÍA MD 311 MO DEPRESS NOS 12/06/2012 ASHLEY LOMELI PHD 311 MO DEPRESS NOS 12/06/2012 ANN MARIE SORENSEN MD 311 MO DEPRESS NOS 12/06/2012 CHRIS US JR 311 MO DEPRESS NOS 12/06/2012 ASHLEY LOMELI PHD 311 MO DEPRESS NOS 12/06/2012 ERICK MADDEN APRN J 311 MO DEPRESS NOS 12/06/2012 ERICK MADDEN APRN 311 MO DEPRESS NOS 12/06/2012 ARMANI AUGUSTINE, ASHLEY Neal 311 MO DEPRESS NOS 12/06/2012 ASHLEY LOMELI PHD 311 MO DEPRESS NOS 12/06/2012 ERICK MADDEN APRN 311 MO DEPRESS NOS 12/06/2012 JENN ZAVALETA, MANA R 311 MO DEPRESS NOS 12/06/2012 ERICK MADDEN APRN J 311 MO DEPRESS NOS 12/06/2012 ASHLEY LOMELI PHD 311 MO DEPRESS NOS 12/06/2012 JENN ZAVALETA, MANA R 311 MO DEPRESS NOS 12/06/2012 ERICK MADDEN APRN 311 MO DEPRESS NOS 07/09/2013 ERICK MADDEN APRN 724.2 BACK PAIN, LOWER 07/09/2013 ERICK MADDEN APRN 724.2 BACK PAIN, LOWER 07/09/2013 ASHLEY LOMELI PHD 724.2 BACK PAIN, LOWER 07/09/2013 ASHLEY LOMELI PHD 724.2 BACK PAIN, LOWER 07/09/2013 ERICK MADDEN APRN 724.2 BACK PAIN, LOWER 07/09/2013 JENN ZAVALETA, MANA R 724.2 BACK PAIN, LOWER 07/09/2013 ERICK MADDEN APRN 724.2 BACK PAIN, LOWER 07/09/2013 ASHLEY LOMELI PHD 724.2 BACK PAIN, LOWER 07/09/2013 JENN ZAVALETA, MANA R 724.2 BACK PAIN, LOWER 07/09/2013 ERICK MADDEN APRN 724.2 BACK PAIN, LOWER 07/10/2013 ERICK MADDEN APRN 300.3 AN OBCESS COMP DIS 07/10/2013 ERICK MADDEN APRN 300.3 AN OBCESS COMP DIS 07/10/2013 ASHLEY LOMELI PHD 300.3 AN OBCESS COMP DIS 07/10/2013 ASHLEY LOMELI PHD 300.3 AN OBCESS COMP DIS 07/10/2013 ERICK AMDDEN APRN 300.3 AN OBCESS COMP DIS 07/10/2013 MANA BARAJAS APRN 300.3 AN OBCESS COMP DIS 07/10/2013 ERICK MADDEN APRN 300.3 AN OBCESS COMP DIS 07/10/2013 ASHLEY LOMELI PHD 300.3 AN OBCESS COMP DIS 07/10/2013 MANA BARAJAS APRN 300.3 AN OBCESS COMP DIS 07/10/2013 ERICK MADDEN APRN 300.3 AN OBCESS COMP DIS 04/09/2014 ERICK MADDEN APRN 300.01 AN PANIC DIS W/O AGORA Procedures Code [place] [address] ROUTINE VENIPUNCTURE 03/11/2012 72305 A1C (IN-HOUSE) 03/11/2012 88114 CBC 03/11/2012 06932 CMP 03/11/2012 94079 LIPID PANEL 03/11/2012 9902815 GFR CALC (RESULT ONLY) 03/11/2012 29948 HEPATITIS PROFILE 03/11/2012 [id number] HCV INDEX (RESULT ONLY) 03/11/2012 08786 PSA FREE AND TOTAL 03/11/2012 52878 HIV ANTIBODIES (RML) 03/11/2012 84884 ROUTINE VENIPUNCTURE 06/21/2012 05035 INR (IN HOUSE) 06/21/2012 56722 CMP 06/21/2012 4224045 GFR CALC (RESULT ONLY) 06/21/2012 92877 HEP C PCR QUANT W/FAREED 06/25/2012 67833 URINE DRUG SCREEN (IN-HOUSE ) 10/17/2012 55227 ROUTINE VENIPUNCTURE 11/04/2012 18741 LDH 11/04/2012 43953 VITAMIN D 25-HYDROXY (D2,D3 , TOTAL) 11/04/2012 89149 VIT B 12 11/04/2012 66137 VITAMIN D I-25 DIHYDROXY 11/04/2012 71737 FOLATE 11/04/2012 53660 HOMOCYSTINE 11/04/2012 45879 PROLACTIN 11/04/2012 42302 TESTOSTERONE PANEL (FREE, TOTAL, and SHBG) 11/04/2012 70195 TESTOSTERONE TOTAL 11/04/2012 73033 TSH 11/04/2012 07876 SLEEP STUDY 11/04/2012 34050 PSYCH DIAGNOSTIC EVALUATION 12/09/2012 24775 ROUTINE VENIPUNCTURE 01/10/2013 59097 CBC 01/10/2013 30792 LH 01/10/2013 03963 FSH 01/10/2013 58431 TESTOSTERONE PANEL (FREE, TOTAL, and SHBG) 01/15/2013 53012 PSYTX PT&/FAMILY 45 MINUTES 02/07/2013 38932 PSYTX PT&/FAMILY 30 MINUTES 04/16/2013 52396 PSYTX PT&/FAMILY 30 MINUTES 07/10/2013 25151 ROUTINE VENIPUNCTURE 08/21/2013 43669 HEP C PCR QUANT (SERIAL) 08/25/2013 03107 CMP 08/26/2013 46296 PROLACTIN 08/26/2013 28133 PSA TOTAL 08/26/2013 50803 CBC 08/26/2013 86382 PSYTX PT&/FAMILY 45 MINUTES 08/26/2013 TESTFRTOT TESTOSTERONE FREE AND TOTAL MALE 08/26/2013 19461 PSYTX PT&/FAMILY 45 MINUTES 09/23/2013 50676 ROUTINE VENIPUNCTURE 10/15/2013 43117 PSYTX PT&/FAMILY 30 MINUTES 10/15/2013 00529 LIPID PANEL 10/15/2013 35244 CBC 10/15/2013 9365441 GFR CALC (RESULT ONLY) 10/15/2013 06203 CMP 10/15/2013 15011 TSH 10/15/2013 56640 HEP B SURFACE ANTIGEN (RML) 10/15/2013 44473 HEP C PCR QUANT (SERIAL) 10/16/2013 00115 PSYTX PT&/FAMILY 45 MINUTES 11/07/2013 06897 AMERITOX 11/24/2013 Results Test Result Range CBC With Differential/Platelet - 11/30/15 00:00 WBC 8.3 x10E3/uL 3.4-10.8 RBC 5.41 x10E6/uL 4.14-5.80 Hemoglobin 15.5 g/dL 12.6-17.7 Hematocrit 47.0 % 37.5-51.0 MCV 87 fL 79-97 MCH 28.7 pg 26.6-33.0 MCHC 33.0 g/dL 31.5-35.7 RDW 13.8 % 12.3-15.4 Platelets 299 x10E3/uL 150-379 Neutrophils 62 % Lymphs 28 % Monocytes 7 % Eos 3 % Basos 0 % Neutrophils (Absolute) 5.1 x10E3/uL 1.4-7.0 Lymphs (Absolute) 2.3 x10E3/uL 0.7-3.1 Monocytes(Absolute) 0.6 x10E3/uL 0.1-0.9 Eos (Absolute) 0.3 x10E3/uL 0.0-0.4 Baso (Absolute) 0.0 x10E3/uL 0.0-0.2 Immature Granulocytes 0 % Immature Grans (Abs) 0.0 x10E3/uL 0.0-0.1 Comp. Metabolic Panel (14) - 11/30/15 00:00 Glucose, Serum 94 mg/dL 65-99 BUN 20 mg/dL 8-27 Creatinine, Serum 1.03 mg/dL 0.76-1.27 eGFR If NonAfricn Am 79 mL/min/1.73 >59 eGFR If Africn Am 91 mL/min/1.73 >59 BUN/Creatinine Ratio 19 10-22 Sodium, Serum 140 mmol/L 136-144 Potassium, Serum 4.5 mmol/L 3.5-5.2 Chloride, Serum 96 mmol/L 97-106 Carbon Dioxide, Total 26 mmol/L 18-29 Calcium, Serum 9.4 mg/dL 8.6-10.2 Protein, Total, Serum 7.5 g/dL 6.0-8.5 Albumin, Serum 4.8 g/dL 3.6-4.8 Globulin, Total 2.7 g/dL 1.5-4.5 A/G Ratio 1.8 1.1-2.5 Bilirubin, Total 0.4 mg/dL 0.0-1.2 Alkaline Phosphatase, S 48 IU/L 39-117 AST (SGOT) 16 IU/L 0-40 ALT (SGPT) 23 IU/L 0-44 Lipid Panel - 11/30/15 00:00 Cholesterol, Total 228 mg/dL 100-199 Triglycerides 144 mg/dL 0-149 HDL Cholesterol 43 mg/dL >39 VLDL Cholesterol Ikran 29 mg/dL 5-40 LDL Cholesterol Calc 156 mg/dL 0-99 CBC With Differential/Platelet - 03/03/16 12:06 WBC 5.6 x10E3/uL 3.4-10.8 RBC 4.95 x10E6/uL 4.14-5.80 Hemoglobin 14.4 g/dL 12.6-17.7 Hematocrit 42.8 % 37.5-51.0 MCV 87 fL 79-97 MCH 29.1 pg 26.6-33.0 MCHC 33.6 g/dL 31.5-35.7 RDW 13.4 % 12.3-15.4 Platelets 251 x10E3/uL 150-379 Neutrophils 55 % Lymphs 32 % Monocytes 9 % Eos 4 % Basos 0 % Neutrophils (Absolute) 3.1 x10E3/uL 1.4-7.0 Lymphs (Absolute) 1.8 x10E3/uL 0.7-3.1 Monocytes(Absolute) 0.5 x10E3/uL 0.1-0.9 Eos (Absolute) 0.2 x10E3/uL 0.0-0.4 Baso (Absolute) 0.0 x10E3/uL 0.0-0.2 Immature Granulocytes 0 % Immature Grans (Abs) 0.0 x10E3/uL 0.0-0.1 Comp. Metabolic Panel (14) - 03/03/16 12:06 Glucose, Serum 93 mg/dL 65-99 BUN 24 mg/dL 8-27 Creatinine, Serum 0.91 mg/dL 0.76-1.27 eGFR If NonAfricn Am 91 mL/min/1.73 >59 eGFR If Africn Am 105 mL/min/1.73 >59 BUN/Creatinine Ratio 26 10-22 Sodium, Serum 140 mmol/L 134-144 Potassium, Serum 4.6 mmol/L 3.5-5.2 Chloride, Serum 96 mmol/L 96-106 Carbon Dioxide, Total 28 mmol/L 18-29 Calcium, Serum 9.1 mg/dL 8.6-10.2 Protein, Total, Serum 7.2 g/dL 6.0-8.5 Albumin, Serum 4.5 g/dL 3.6-4.8 Globulin, Total 2.7 g/dL 1.5-4.5 A/G Ratio 1.7 1.1-2.5 Bilirubin, Total 0.4 mg/dL 0.0-1.2 Alkaline Phosphatase, S 46 IU/L 39-117 AST (SGOT) 15 IU/L 0-40 ALT (SGPT) 18 IU/L 0-44 Lipid Panel - 03/03/16 12:06 Cholesterol, Total 220 mg/dL 100-199 Triglycerides 109 mg/dL 0-149 HDL Cholesterol 48 mg/dL >39 VLDL Cholesterol Kiran 22 mg/dL 5-40 LDL Cholesterol Calc 150 mg/dL 0-99 Prostate-Specific Ag, Serum - 03/03/16 12:06 Prostate Specific Ag, Serum 0.2 ng/mL 0.0-4.0 THYROID ANALYZER - 07/19/17 16:01 TSH 1.84 mIU/L 0.40-4.50 HEP C PCR QUANT (Graph)-APPROVAL REQUIRED - 07/19/17 16:01 HCV RNA, QUANTITATIVE REAL TIME PCR <15 NOT DETECTED IU/mL NOT DETECTED HCV RNA, QUANTITATIVE REAL TIME PCR <1.18 NOT DETECTED Log IU/mL NOT DETECTED COMMENT NRG PDM - 09 PANEL (PROFILE 1) - 07/19/17 16:01 Prescribed Drug 1 Hydrocodone NRG Creatinine 138.6 mg/dL > or=20.0 pH 6.14 4.5 - 9.0 Oxidant NEGATIVE mcg/mL <200 Amphetamines NEGATIVE ng/mL <500 medMATCH Amphetamines CONSISTENT NRG Benzodiazepines NEGATIVE CONFIRMED ng/mL <100 Marijuana Metabolite NEGATIVE ng/mL <20 medMATCH Marijuana Metab CONSISTENT NRG Cocaine Metabolite NEGATIVE ng/mL <150 medMATCH Cocaine Metab CONSISTENT NRG Opiates POSITIVE ng/mL <100 Oxycodone NEGATIVE ng/mL <100 medMATCH Oxycodone CONSISTENT NRG COMMENT NRG Alphahydroxyalprazolam NEGATIVE ng/mL <25 medMATCH aOH alprazolam CONSISTENT NRG Alphahydroxymidazolam NEGATIVE ng/mL <50 medMATCH aOH midazolam CONSISTENT NRG Alphahydroxytriazolam NEGATIVE ng/mL <50 medMATCH aOH triazolam CONSISTENT NRG Aminoclonazepam NEGATIVE ng/mL <25 medMATCH Aminoclonazepam CONSISTENT NRG Hydroxyethylflurazepam NEGATIVE ng/mL <50 medMATCH OH,Et flurazepam CONSISTENT NRG Lorazepam NEGATIVE ng/mL <50 medMATCH Lorazepam CONSISTENT NRG Nordiazepam NEGATIVE ng/mL <50 medMATCH Nordiazepam CONSISTENT NRG Oxazepam NEGATIVE ng/mL <50 medMATCH Oxazepam CONSISTENT NRG Temazepam NEGATIVE ng/mL <50 medMATCH Temazepam CONSISTENT NRG Codeine NEGATIVE ng/mL <50 medMATCH Codeine CONSISTENT NRG Hydrocodone 855 ng/mL <50 medMATCH Hydrocodone CONSISTENT NRG Hydromorphone 681 ng/mL <50 medMATCH Hydromorphone CONSISTENT NRG Morphine NEGATIVE ng/mL <50 medMATCH Morphine CONSISTENT NRG Norhydrocodone 1981 ng/mL <50 medMATCH Norhydrocodone CONSISTENT NRG Prescribed Drug 2 Hydrocodone NRG Barbiturates NEGATIVE ng/mL <300 medMATCH Barbiturates CONSISTENT NRG Methadone Metabolite NEGATIVE ng/mL <100 medMATCH Methadone Metab CONSISTENT NRG Phencyclidine NEGATIVE ng/mL <25 medMATCH Phencyclidine CONSISTENT NRG Encounters ACCT No. Visit Date/Time Discharge Status Pt. Type Provider Facility Loc./Unit Complaint [id number] 04/09/2014 16:47:00 04/09/2014 23:59:59 CLS Outpatient ERICK MADDEN APRN [id number] 11/20/2013 15:01:00 11/20/2013 23:59:59 CLS Outpatient MANA BARAJAS APRN [id number] 11/07/2013 15:03:00 11/07/2013 23:59:59 CLS Outpatient ASHLEY LOMELI PHD [id number] 10/15/2013 08:59:00 10/15/2013 23:59:59 CLS Outpatient MANA BARAJAS APRN [id number] 10/07/2013 10:34:00 10/07/2013 23:59:59 CLS Outpatient ERICK MADDEN APRN [id number] 10/07/2013 10:34:00 10/07/2013 23:59:59 CLS Outpatient ERICK MADDEN APRN [id number] 09/23/2013 14:59:00 09/23/2013 23:59:59 NEY Outpatient ASHLEY LOMELI PHD [id number] 08/26/2013 17:58:00 08/26/2013 23:59:59 NEY Outpatient ASHLEY LOMELI PHD [id number] 07/10/2013 12:05:00 07/10/2013 23:59:59 CLS Outpatient ERICK MADDEN APRN [id number] 07/10/2013 12:05:00 07/10/2013 23:59:59 CLS Outpatient ERICK MADDEN APRN Bre [id number] 07/09/2013 16:20:00 07/09/2013 23:59:59 CLS Outpatient ASHLEY LOMELI PHD [id number] 04/10/2013 10:20:00 04/10/2013 23:59:59 CLS Outpatient CHRIS US JR [id number] 04/10/2013 10:20:00 04/10/2013 23:59:59 CLS Outpatient ANN MARIE SORENSEN MD [id number] 02/07/2013 14:04:00 02/07/2013 23:59:59 CLS Outpatient ASHLEY LOMELI PHD [id number] 01/10/2013 07:57:00 01/10/2013 23:59:59 CLS Outpatient RICH GARCÍA MD [id number] 12/06/2012 08:07:00 12/06/2012 23:59:59 CLS Outpatient ANN MARIE SORENSEN MD [id number] 12/06/2012 08:07:00 12/06/2012 23:59:59 CLS Outpatient CHRIS US JR [id number] 11/04/2012 08:43:00 11/04/2012 23:59:59 CLS Outpatient OLE CULVER DO [id number] 10/21/2012 00:00:00 10/21/2012 23:59:59 CLS Outpatient OLE CULVER DO [id number] 03/11/2012 10:09:00 03/11/2012 23:59:59 CLS Outpatient RICH GARCÍA MD [id number] 09/06/2012 10:26:00 Document Registration [id number] 06/21/2012 09:04:00 Document Registration [id number] 07/19/2017 15:00:00 07/19/2017 23:59:59 CLS Outpatient HAYLEY ARIAS [facility] [id number] 07/19/2017 15:00:00 Document Registration [id number] 12/01/2015 10:06:00 Document Registration [id number] 03/04/2016 08:36:00 Document Registration
[2017-11-12] MEDS ORDERED: CLINDAMYCIN 900 MG/50 ML IVPB 50 ML IV ONE (22:00)
[2017-11-12] MEDS ORDERED: fentaNYL INJECTION 100 MCG/2 ML AMP IVP ONE ×2 (22:00→23:15)
--- NOTE | 2017-11-12 22:07 | Diagnostic Imaging Report ---
CHEST 1 VIEW, AP/PA ONLY Indication: Trauma. Comparison: None available. Findings: No focal airspace disease in the visualized lungs. Please note that the posterior lower lobes are poorly evaluated by portable radiography. No pleural effusion or pneumothorax. Normal cardiomediastinal silhouette. Impression: No acute cardiopulmonary process by portable radiography. Dictated by: Dictated on workstation # [id number]
--- NOTE | 2017-11-12 22:08 | Diagnostic Imaging Report ---
INDICATION: Left ankle pain after trauma. COMPARISON: None available. TECHNIQUE: Frontal and lateral views of the left ankle were obtained. FINDINGS: There is an acute transverse and mildly comminuted fracture of the distal tibia diaphysis. The medial margin of the fracture cortex is displaced and has small component extending through a skin defect indicative of an open fracture. There is an acute transverse fracture through the distal fibular diaphysis. This fracture is displaced medially by greater than one shaft width and has lateral angulation of the distal fracture fragment. Irregularity of the talus with volume loss is likely chronic in nature. Correlation with history of prior trauma is advised. IMPRESSION: 1. Acute, open fracture of the distal tibia and fibula diaphyses. Dictated by: Dictated on workstation # [id number]
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
[2017-11-12 22:34] LABS: BASOPHILS % (AUTO) 0 % (0-10); EOSINOPHILS # (AUTO) 0.1 10^3/uL (0.0-0.3); EOSINOPHILS % (AUTO) 0 % (0-10); HEMATOCRIT 42 % (40-54); HEMOGLOBIN 14.3 G/DL (13.3-17.7); LYMPHOCYTES # (AUTO) 2.2 X 10^3 (1.0-4.0); LYMPHOCYTES % (AUTO) 14 % (12-44); MEAN CORPUSCULAR HEMOGLOBIN 30 PG (25-34); MEAN CORPUSCULAR HGB CONC 34 G/DL (32-36); MEAN CORPUSCULAR VOLUME 88 FL (80-99); MEAN PLATELET VOLUME 9.5 FL (7.4-10.4); MONOCYTES # (AUTO) 0.6 X 10^3 (0.0-1.0); MONOCYTES % (AUTO) 4 % (0-12); NEUTROPHILS # (AUTO) 12.6 X 10^3 (1.8-7.8); NEUTROPHILS % (AUTO) 81 % (42-75); PLATELET COUNT 285 10^3/uL (130-400); RED BLOOD COUNT 4.82 10^6/uL (4.35-5.85); RED CELL DISTRIBUTION WIDTH 13.6 % (10.0-14.5); WHITE BLOOD COUNT 15.6 10^3/uL (4.3-11.0)
[2017-11-12] MEDS ORDERED: GENTAMICIN 40 MG/ML 2 ML INJ SDV ONE (22:39)
[2017-11-12] MEDS ORDERED: METOCLOPRAMIDE INJ 10 MG/2 ML (REGLAN) ONE (22:41)
[2017-11-12] MEDS ORDERED: fentaNYL INJECTION 100 MCG/2 ML AMP ONE (22:47)
[2017-11-12] MEDS ORDERED: MIDAZOLAM 2 MG/2 ML (VERSED) VIAL ONE ×2 (22:47)
[2017-11-12] MEDS ORDERED: BUP/EPI 0.5% 1:200,000 (SENSORCAINE) 30 ML VIAL ONE (22:54)
[2017-11-12 22:56] LABS: PROTHROMBIN TIME PATIENT 13.5 SEC (12.2-14.7)
[2017-11-12 23:07] LABS: ALANINE AMINOTRANSFERASE 24 U/L (0-55); ALBUMIN 4.9 GM/DL (3.2-4.5); ALKALINE PHOSPHATASE 39 U/L (40-136); BILIRUBIN,TOTAL 0.6 MG/DL (0.1-1.0); BUN/CREATININE RATIO 30; CALCIUM 9.7 MG/DL (8.5-10.1); CARBON DIOXIDE 25 MMOL/L (21-32); CHLORIDE 99 MMOL/L (98-107); CREATININE SERUM 1.02 MG/DL (0.60-1.30); GFR ESTIMATED > 60; GLUCOSE 102 MG/DL (70-105); POTASSIUM 4.2 MMOL/L (3.6-5.0); SODIUM 136 MMOL/L (135-145); TOTAL PROTEIN 8.2 GM/DL (6.4-8.2)
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
[2017-11-12 23:13] LABS: EOSINOPHILS % (MANUAL) 1 %; LYMPHOCYTES % (MANUAL) 12 %; MONOCYTES % (MANUAL) 4 %; NEUTROPHILS % (MANUAL) 83 %; RBC MORPH NORMAL
[2017-11-12] MEDS ORDERED: PROMETHAZINE INJ 25 MG/ML (PHENERGAN) AMP IVP PRN (23:15)
[2017-11-12] MEDS ORDERED: D5 1/2 NS 1000 ML IV SOLUTION 1,000 ML IV SCH (23:15)
[2017-11-12] MEDS ORDERED: morphine INJ 10 MG/ML 1ML (SYR OR VIAL) IVP PRN (23:15)
[2017-11-12] MEDS ORDERED: ONDANSETRON 4 MG/2 ML (SDV) Z0FRAN IVP PRN (23:15)
[2017-11-12] MEDS ORDERED: BACLOFEN 10 MG (LIORESAL) TAB PO PRN (23:15)
[2017-11-12] MEDS ORDERED: BISACODYL 10 MG SUPP (DULCOLAX) PR PRN (23:15)
[2017-11-12] MEDS ORDERED: MEPERIDINE (DEMEROL) INJ 50 MG/ML ONE (23:38)
[2017-11-12 23:45] LABS: AMPHETAMINE SCREEN, URINE NEGATIVE (NEGATIVE); BARBITURATE SCREEN URINE NEGATIVE (NEGATIVE); BENZODIAZEPINES SCREEN URINE NEGATIVE (NEGATIVE); CANNABINOID SCREEN, URINE NEGATIVE (NEGATIVE); COCAINE SCREEN URINE NEGATIVE (NEGATIVE); METHADONE STAT NEGATIVE (NEGATIVE); METHAMPHETAMINE SCREEN URINE S NEGATIVE (NEGATIVE); OPIATE SCREEN URINE POSITIVE (NEGATIVE); OXYCODONE STAT NEGATIVE (NEGATIVE); PROPOXYPHENE STAT NEGATIVE (NEGATIVE); TRICYCLIC ANTIDEPRESSANTS SCRE NEGATIVE (NEGATIVE)
[2017-11-12] MEDS ORDERED: SEVOFLURANE (ULTANE) 15 ML INHAL SOLN ONE (23:48)
[2017-11-12] MEDS ORDERED: LIDOCAINE PF 2% 2 ML (XYLOCAINE) VIAL ONE (23:48)
[2017-11-12] MEDS ORDERED: proPOfol 200 MG/20 ML (DIPRIVAN) VIAL IV ONE (23:48)
[2017-11-13] MEDS ORDERED: LACTATED RINGERS 1,000 ML IV PRN (00:22)
[2017-11-13] MEDS ORDERED: SEVOFLURANE (ULTANE) 15 ML INHAL SOLN ONE ×3 (00:35→00:38)
--- NOTE | 2017-11-13 00:53 | Progress Note-Post Operative ---
Post-Operative Progess Note Surgeon (s)/Binder Technician (s) Surgeon ODETTE BLACK MD Binder Technician: None Pre-Operative Diagnosis Open Tib/fib fx, distal Post-Operative Diagnosis Same Procedure & Operative Findings Date of Procedure 11/13/17 Procedure Performed/Findings I&D open fx, and closed reduction, multiplane external fixator Anesthesia Type LMA Estimated Blood Loss Estimated blood loss (mL): min Specimens/Packing Specimens Removed none ODETTE BLACK MD Nov 13, 2017 12:53 am
[2017-11-13] MEDS: MEPERIDINE (DEMEROL) INJ 50 MG/ML IVP ONE ×2 (00:56→02:33)
[2017-11-13] MEDS ORDERED: fentaNYL INJECTION 100 MCG/2 ML AMP IVP ONE (01:00)
[2017-11-13] MEDS ORDERED: morphine INJ 10 MG/ML 1ML (SYR OR VIAL) IVP ONE (01:00)
[2017-11-13] MEDS: ONDANSETRON 4 MG/2 ML (SDV) Z0FRAN IVP PRN (03:05)
[2017-11-13 04:00] VITALS: BP 121/67
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
[2017-11-13] MEDS ORDERED: ASPI325T32 PO (05:15)
[2017-11-13] MEDS ORDERED: HYDR-3820 PO (05:15)
--- NOTE | 2017-11-13 05:17 | Discharge Inst-Simple/Standard ---
Discharge Inst-Standard Discharge Medications New, Converted or Re-Newed RX: RX on Chart Patient Instructions/Follow Up Plan of Care/Instructions/FU: keep extrimity clean and dry use crutches to ambulate toe touch weight bearing to extrimity only follow up with Dr Leach, call for appoointment Activity as Tolerated: No Discharge Diet: No Restrictions Return to The Hospital For: fever, chills, shortness of breath, chest pain new numbness or tingling ADE HERNANDEZ Nov 13, 2017 05:17
--- NOTE | 2017-11-13 05:34 | Discharge Summary ---
Diagnosis/Chief Complaint Date of Admission 11/12/2017 Date of Discharge 11/13/2017 Admission Diagnosis Admission Diagnosis left tib/fib fracture, open Discharge Diagnosis open left tib fib fracture Reason Hospital Visit left tib fib fracture, open requiring external fixation Discharge Summary Hospital Course Hospital Course Tomy was admitted to the hospital for external fixation of his left open tib fib fracture. He tolerated the procedure well without event. Labs Laboratory Tests 11/12/17 21:39: White Blood Count 15.6H, Neutrophils (%) (Auto) 81H, Neutrophils # (Auto) 12.6H , Blood Urea Nitrogen 31H, Alkaline Phosphatase 39L, Albumin 4.9H 11/12/17 23:28: Urine Opiates Screen POSITIVEH Procedures None. Discharge Physical Examination Allergies: Coded Allergies: No Known Drug Allergies (Unverified , 11/12/17) Vitals & I&Os Vital Signs Date Time Temp Pulse Resp B/P (MAP) Pulse Ox O2 Delivery O2 Flow Rate FiO2 11/13/17 02:20 100 OxyMask 5.00 11/12/17 23:28 84 18 117/79 (92) 11/12/17 21:35 98.1 General Appearance: Alert, Oriented X3, Cooperative, No Acute Distress Respiratory: Normal Air Movement Extremities: No Clubbing, No Cyanosis, No Edema, Normal Pulses, Other (ex-fix to left tib) Skin: No Rashes, No Breakdown, No Significant Lesion Neuro: Sensation Intact Discussion & Recommendations will follow up in clinic for for re evaluation and to be scheduled for ex fix removal and orif Discharge Home Medications Reviewed and agree with Discharge Medication list on patient's Discharge Instruction sheet Instructions to Patient/Family Please see electronic discharge instructions given to patient. Clinical Quality Measures DVT/VTE Risk/Contraindication: Risk Factor Score Per Nursin RFS Level Per Nursing on Admit: 4+=Very High ADE HERNANDEZ Nov 13, 2017 05:34
[2017-11-13] MEDS ORDERED: FLU QUADRIvalent (5+ YOA) 2018-2019 (AFLURIA) 0.5 ML IM ONE (07:15)
--- NOTE | 2017-11-13 07:38 | Anesthesia-General Post-Op ---
General Patient Condition Mental Status/LOC: Same as Preop Cardiovascular: Satisfactory Nausea/Vomiting: Absent Respiratory: Satisfactory Pain: Controlled Complications: Absent Post Op Complications Complications None Follow Up Care/Instructions Patient Instructions None needed. Anesthesia/Patient Condition Patient Condition Patient is doing well, no complaints, stable vital signs, no apparent adverse anesthesia problems. No complications reported per nursing. D/C home per [facility] Criteria: NELIA Cardozo CRNA Nov 13, 2017 07:38
[2017-11-13 08:00] VITALS: BP 116/62
[2017-11-13] MEDS: HYDROcodone/APAP 10 MG/325 MG (LORTAB) TAB PO PRN ×2 (08:20→12:12)
--- NOTE | 2017-11-13 08:28 | Diagnostic Imaging Report ---
EXAMINATION: Fluoroscopy INDICATION: Ankle pain Fluoroscopic assistance was provided for Dr. Leach during his external fixation procedure of the left ankle. 9.4 seconds of fluoroscopy time was utilized. 3 spot films of the left ankle were received from the OR. The fracture of the left ankle seen on 11/12/2017 is again evident and main fracture fragments do seem in better alignment. There is now an external fixation device in place along the medial aspect of the foot. IMPRESSION: Fluoroscopic assistance was provided for Dr. Leach. Dictated by: Dictated on workstation # [id number]
[2017-11-13] MEDS ORDERED: ASPIRIN E.C. 325 MG (ECOTRIN) TABLET PO SCH (09:00)
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
[2017-11-13 12:00] VITALS: BP 113/61
--- NOTE | 2017-11-13 12:31 | Podiatry Progress Note ---
Standard Progress Note Progress Notes/Assess & Plan Date Seen by a Provider: Nov 13, 2017 Time Seen by a Provider: 12:00 Progress/Assessment & Plan Pt seen at BS I have discussed treatment plan and evaluated him. He is OK for D /C today and will follow up with me as out patient this . Plan for definitive ORIF next week. Final Diagnosis Okay for D/C once CT scan performed. ANN MARIE COLÓN DPM Nov 13, 2017 12:31
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
--- NOTE | 2017-11-13 14:37 | Diagnostic Imaging Report ---
PROCEDURE: CT left lower extremity without contrast. TECHNIQUE: Multiple contiguous axial images were obtained through the left lower extremity without the use of intravenous contrast. Sagittal and coronal reformations were then performed. INDICATION: Fracture. FINDINGS: There is an external fixator which has been placed through the calcaneus and proximal tibial diaphysis. There is an oblique fracture through the distal tibial diaphysis. The distal fracture fragment remains displaced slightly anteriorly. Bone gap is approximately 8 mm. Additionally, there is a transverse fracture through the [id number] tibial diaphysis. This is only offset by 4 to 5 mm. 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 There are postsurgical changes about the cuneiforms, likely previous Lisfranc repair. There is some subcutaneous air within the anterior aspect of the distal tibia, suggesting this is a compound fracture as well. IMPRESSION: 1. Left tibial and fibular fractures as described with subcutaneous air, compatible with compound fracture. 2. 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 Dictated by: Dictated on workstation # [id number]
[2017-11-13 16:08] VITALS: BP 113/61
[2017-11-14] MEDS ORDERED: SENNA W/DOCUSATE (SENOKOT S) TABLET PO SCH (09:00)
== END 2017-11-13 16:00 | disposition home or self-care (01) ==
LOC: EDUNIT# 21:35 → ER 21:37 → SDC 22:47 → 4TH 11-13 02:35 → SDC 11-13 16:00
PROVIDERS: ATTEND Orthopaedic Surgery Orthopaedic Surgery of the Spine
DX: S82.302B Unspecified fracture of lower end of left tibia, initial encounter for open fracture type I or II (principal); S82.832B Other fracture of upper and lower end of left fibula, initial encounter for open fracture type I or II; V86.7 Person on outside of special all-terrain or other off-road motor vehicle injured in nontraffic accident; F32.9 Major depressive disorder, single episode, unspecified; Z79.899 Other long term (current) drug therapy
CPT/HCPCS: 36415; 71045; 73600; 73700; 80053; 80306; 80320; 85007; 85027; 85610; 85730; 94664

== ENCOUNTER → 2017-12-06 | Outpatient (CLI) | payer MEDICARE ==
[~2017-12-06] MED LIST: ASPI325T32 PO; HYDR-3820 PO
--- NOTE | 2017-12-06 14:10 | Diagnostic Imaging Report ---
PROCEDURE: US left lower extremity venous. TECHNIQUE: Multiple real-time grayscale images were obtained over the left lower extremity in various projections. Additional duplex Doppler and color Doppler images were also obtained. INDICATION: Left leg pain. Patient had recent ankle fracture. FINDINGS: There is no evidence of left lower extremity DVT. Left lower extremity deep venous system shows normal compressibility with normal response to augmentation and Valsalva. No fluid collection or mass is seen. IMPRESSION: No evidence of left lower extremity DVT. Dictated by: Dictated on workstation # [id number]
== END ==
LOC: RAD 13:29
PROVIDERS: ATTEND Podiatrist
DX: M79.605 Pain in left leg (principal); Z87.81 Personal history of (healed) traumatic fracture

== ENCOUNTER 2021-08-09 15:50 | Emergency (ER) | payer MEDICARE ==
[~2021-08-09 15:50] MED LIST changes: +ACHYD1T PO; -HYDR-3820 PO
--- NOTE | 2021-08-09 16:10 | ED Fall/Injury ---
General Stated Complaint: FALL History of Present Illness Date Seen by Provider: Aug 09, 2021 Time Seen by Provider: 16:10 Initial Comments 65-year-old male presents with left posterior rib pain. Patient reports that he slipped and fell off of low porch/step. When he fell he hit his left posterior ribs on a tool tray. He has a small abrasion to his left flank. Reports that he has some pain with palpation pain with movement. No shortness of breath. He did not hit his head and suffered no other injuries. Allergies and Home Medications Allergies Coded Allergies: No Known Drug Allergies (Unverified , 11/12/17) Patient Home Medication List Home Medication List Reviewed: Yes Aspirin (Aspirin EC) 325 Mg Tablet.dr 325 MG PO DAILY Prescribed by: ADE HERNANDEZ on 11/13/1715 Hydrocodone Bit/Acetaminophen (HYDROcodone/APAP 10/325 TABLET) 1 Each Tablet, 1 EA PO Q4H PRN for PAIN-MODERATE Prescribed by: ADE HERNANDEZ on 11/13/17 0515 Review of Systems Review of Systems Constitutional: No chills, No fever Ears, Nose, Mouth, Throat: no symptoms reported Respiratory: see HPI Cardiovascular: see HPI Gastrointestinal: no symptoms reported Genitourinary: no symptoms reported Musculoskeletal: no symptoms reported Skin: no symptoms reported Psychiatric/Neurological: No Symptoms Reported Past Doacuuj-Obbcuo-Rhcpte Hx Immunizations Up To Date Tetanus Booster (TDap): Less than 5yrs Seasonal Allergies Seasonal Allergies: No Past Medical History Surgeries: Yes Orthopedic Respiratory: No Cardiac: No Neurological: No Reproductive Disorders: No Genitourinary: No Gastrointestinal: No Musculoskeletal: Yes (Trauma to the left lower extremity) Endocrine: No HEENT: No Cataract Loss of Vision: Denies Hearing Impairment: Denies Cancer: No Psychosocial: Yes Depression Integumentary: No Blood Disorders: Yes (Hep. C.) Family Medical History Diabetes mellitus G8 SISTER, Hypertension 19 FATHER Neoplasm G8 SISTER, Cancer, Diabetes, Hypertension Physical Exam Vital Signs Vital Signs - First Documented 08/09/21 16:10 Temp 36.2 Pulse 85 Resp 18 B/P (MAP) 135/82 (99) Pulse Ox 96 O2 Delivery Room Air Capillary Refill : Height, Weight, BMI Height: 6'2.00" Weight: 232lbs. 1.0oz. 105.693714ck; 29.8 BMI Method:Estimated General Appearance: WD/WN, no apparent distress Neck: full range of motion, supple Cardiovascular: normal peripheral pulses, regular rate, rhythm Respiratory: lungs clear, normal breath sounds Gastrointestinal: non tender, soft Back: No vertebral tenderness; other (Tenderness to left posterior chest wall/ribs) Extremities: normal range of motion, non-tender, normal inspection Neurologic/Psychiatric: damage assessor II-XII nml as tested, no motor/sensory deficits, alert, normal mood/affect, oriented x 3 Skin: other (Small abrasion left lateral abdomen/chest wall) Progress/Results/Core Measures Results/Orders My Orders Orders - URSULA DOMINIQUE DO Ribs/Unilateral With Chest (08/09/21 16:10) Vital Signs/I&O 08/09/21 16:10 Temp 36.2 Pulse 85 Resp 18 B/P (MAP) 135/82 (99) Pulse Ox 96 O2 Delivery Room Air Progress Progress Note : Progress Note Patient with rib fracture of the ninth rib. Patient can use Tylenol, ibuprofen and topical lidocaine as needed for pain. Ice for 24 to 48 hours. Follow-up with a primary care provider as needed Departure Impression Primary Impression: Fracture of rib Qualified Codes: S22.32XA - Fracture of one rib, left side, initial encounter for closed fracture Disposition: 01 HOME, SELF-CARE Condition: Stable Departure-Patient Inst. Referrals: [facility] (PCP) Primary Care Physician ANN MARIE COLÓN DPM (Family) Primary Care Physician Patient Instructions: Rib Fracture (DC) Add. Discharge Instructions: Ice to affected area for 20 minutes 3-4 times daily for 48 hours 4% topical lidocaine with menthol cream gel or patch use as directed on package Tylenol or ibuprofen as needed for pain You may use an Fredi wrap as needed for comfort URSULA DOMINIQUE DO Aug 09, 2021 16:10
--- NOTE | 2021-08-09 16:45 | Diagnostic Imaging Report ---
EXAM: Chest and left rib radiographs EXAM DATE: 08/09/2021 COMPARISON: None HISTORY: Left rib pain after fall. TECHNIQUE: Single view of the chest with 6 views of left ribs. FINDINGS: Heart size is normal. Trace left pleural thickening or pleural fluid. No consolidation or pneumothorax. There is a displaced left 9th rib fracture. Mild degenerative changes of the spine. IMPRESSION: Mildly displaced left 9th rib fracture. Dictated by: Dictated on workstation # [id number]
[2021-08-09 16:57] VITALS: BP 135/82
== END 2021-08-09 16:58 | disposition home or self-care (01) ==
LOC: EDUNIT# 15:50 → ER FS 15:51
DX: S22.32XA Fracture of one rib, left side, initial encounter for closed fracture (principal); W10.8XXA Fall (on) (from) other stairs and steps, initial encounter; Y92.008 Other place in unspecified non-institutional (private) residence as the place of occurrence of the external cause
CPT/HCPCS: 71101

== ENCOUNTER → 2021-12-28 | Outpatient (CLI) | payer MEDICARE ==
--- NOTE | 2021-12-28 17:43 | Diagnostic Imaging Report ---
EXAMINATION: Left hand 3 views. HISTORY: Hand swelling. COMPARISON: None available. FINDINGS: There is nonspecific erosion in the third metacarpal head. Joint spaces are normal. No acute fracture. No dislocation. IMPRESSION: No acute fracture is seen in the left hand. Dictated by: Dictated on workstation # [id number]
== END ==
LOC: RAD FS 16:43
PROVIDERS: ATTEND Nurse Practitioner Family
DX: M79.89 Other specified soft tissue disorders (principal); M79.642 Pain in left hand
CPT/HCPCS: 73130